=== PATIENT | female | born 1985 | race Caucasian/White ===

== ENCOUNTER 2025-07-30 21:58 | Emergency (ER) | payer MEDICAID, SELFPAY ==
--- OUTSIDE RECORDS SUMMARY | 2023-05-30 10:10 | XMS_ITS | Continuity of Care Document ---
Author Organization [facility] Address [address] [place] [address] Phone Care Team Providers Care Chain Saw Mechanic Name Role Phone Tenzin Shane MD Unavailable [...] Diagnoses Date Provider OFFICE/OUTPA TIENT VISIT, EST [facility], [address] [place], [address], [place] tel:[phone] Luis Lopez parasites in eyes (chief complaint) Systemic candidiasisOther halfway drug therapyDry eye syndrome of bilateral lacrimal glands 3 Acosta Dave. [facility], [address], [place], [place], [id number], [place]. tel:[phone] [facility], [address] [place], [address], [place] tel:[phone] Luis Lopez Growth on eyes (chief complaint) Systemic candidiasisAllergic conjunctivitis, chronicDry eye syndrome of bilateral lacrimal glandsOther subjective visual disturbancesOther halfway drug therapy 3 Acosta Dave. [facility], [address], [address], [place], [place], [id number], [place]. tel:[phone] [facility], [address] [place], [address], [place] tel:[phone] Luis Lopez swelling around eye (chief complaint) Other subjective visual disturbancesDry eye syndrome of bilateral lacrimal glandsConjunctival edema, right eye 3 Claus Murray. [facility], [address], [place], [address], [place]. tel:[phone] [facility], [address] [place], [address], [place] tel:[phone] Luis Lopez No Information 3 Amanda Scott. [facility], [address], [address], [place], [address], [place]. tel:[phone] [facility], [address] [place], [address], [place] tel:[phone] [place] floaters (chief complaint) Other subjective visual disturbances Dec- 3 Callum Solo. [facility], [address] [place], [address], [place]. tel:[phone] [facility], [address] [place], [address], [place] tel:[phone] Luis Carlos floaters and flashes (chief complaint) Other subjective visual disturbancesMyopia, bilateralDiplopiaOther halfway drug therapyLupusDermatomyositis 3 Glass Cathy. [facility], [address] [place], [address], [place]. tel:[phone] [facility], [address] [place], [address], [place] tel:[phone] Luis Lopez Medication monitoring (chief complaint) High Risk Medication ScreeningDry eye syndrome of bilateral lacrimal glands 3 Amanda Lorinna. [facility], [address], [address], [place], [address], [place]. tel:[phone] [facility], [address] [place] [address] [place], [address], [place] tel:[phone] Luis Lopez vision changes (chief complaint) Regular astigmatism, bilateral 2 [facility]. [facility], [address] [place] [address], [address], [place]. tel:[phone] [facility], [address] [place] [address], [address], [place] tel:[phone] Luis Lopez Swollen, dry eyes (chief complaint) Hypertensive retinopathy, bilateralDry eye syndrome of bilateral lacrimal glands 2 Amanda Lorinna. [facility], [address], [address], [place], [address], [place]. tel:[phone] [facility], [address] [place], [address], [place] tel:[phone] Luis Lopez swollen (chief complaint) PhotophobiaDry eye syndrome of bilateral lacrimal glands 2 Amanda Lorinna. [facility], [address], [address], [place], [address], [place]. tel:[phone] [facility], [address] [place], [address], [place] tel:[phone] [place] redness (chief complaint) Dry eye syndrome of bilateral lacrimal glandsCombined forms of age-related cataract, bilateralHypertensive retinopathy, bilateral [facility]. [facility], [address], [address], [place], [address], [place]. tel:[phone] Family History Family Member Type Diagnosis Age At Onset No Information Payers Payer name Insurance type C[facility] [id number] Social History Type Description Quantity Date Captured [...] takes Prednisone her symptoms improve. Showed to blender conveyor operator and oncologist, they said it looked normal. [...] castle kathy disease. Pt states her previous dusting and brushing machine operator did not really listen to her. Pt [...] Test with proparacaine: 4mm OD 3mm Volodymyr laminating machine tender + customer orders clerk + oncologistJust got a PCP. Recently had her blood drawn. swollen pt is showing me pictures of the inside of the catholic corner of the lids that she feels [...] she should see an eye doctor and laminating machine tender for eval. PCP is Dr. Guajardo. Was [...] dermatomyosistis, or Castleman disease. Related to Other halfway drug therapy Impression/Plan - # Dry Eye [...] [facility] Last was late March.She feels that her [...] but presumed candidiasis Hospitalisation X 2 at [facility]. Last was late March.She feels that her [...] dermatomyosistis, or Castleman disease. Related to Other halfway drug therapy Impression/Plan - # Dry Eye [...] of bilateral lacrimal glands Impression/Plan - # Dry Eye Syndrome - [...] syndrome of bilateral lacrimal glands Impression/Plan - Pa radhajose reports vision loss OD x 3 hours [...] to Other subjective visual disturbances Impression/Plan - Mi ld subconjunctival lymphatic edema OD. Likely related to her systemic conditions. She is pending consultation at [facility] for several conditions. Recommend beginning Loteprednol BID in the meantime for flare-ups - rx sent. Related to Conjunctival edema, right eye Impression/Plan - Pa telma reports vision loss OD x 3 [...] to Other subjective visual disturbances Impression/Plan - Di scussed eye findings. Patient reports decreased vision OD even with new MRx dispensed 09/23/22. No refraction done today as pt was already dilated at the time of my exam. Lensometry appears only slightly different from MRx. Recommend she return for a glasses check with Dr. Berman. Related to Myopia, bilateral Impression/Plan - Mo nocular diplopia OD. May [...] glasses prescription. Related to Diplopia Impression/Plan - On plaquenil for Lupus, dermatomyositis. Seeing Dr. Patel for plaquenil retinal screenings. No e/o toxicitiy on OCT today, though needs HVF 10-2 as scheduled. Additionally, no evidence of intraocular inflammation or other ocular complications associated with either lupus, dermatomyosistis, or Castleman disease. Related to Other long term care pharmacist drug therapy Impression/Plan - # Dry Eye [...] address inflammation and KCS. FU as scheduled. *Ava at next visit* Related to Photophobia Impression/Plan [...] candidiasis impression Systemic candidiasis: B37.7 assessment Other halfway drug therapy May impression Other long term care pharmacist drug therapy: Z79.899.Lupus: M32.9.Dermatomyositis: M33.13 assessment Dry eye syndrome of bilateral la crimal glands impression Dry eye syndrome of bilateral la crimal glands: H04.123
--- OUTSIDE RECORDS SUMMARY | 2024-11-24 05:00 | XMS_ITS ---
Author Organization [facility] Address [address] [facility] [address] [place] [address] Care Team Providers Care Batter Out Name Role Phone Lizette Guajardo Primary Care Provider Unavailab Tenzin Rodrigues Unavailable [phone] Rosie Faria Unavailable Unavailable Migration, Provider Unavailable Unavailable REASON FOR VISIT EMR-Jesse Encounters Encounter Location Date Provider Diagnosis [facility] [address] [place] [address] 11/24/2024 Provider Migration Plan Of Treatment Medication [...] on 10mg until you discuss with your home theater experience expert Oral 09/02/2022 09/17/2022 azaTHIOprine 50 MG Tablet [...] * Astrid COSBY LDOB:[birth year] (39 yo F)Acc No.[id number]:11/24/2024 Patient: Astrid CID :[id number] A ge:39 Y S ex:Female Address[address] [place], [address] * Refills Stop Amphetamine-Dextroamphetamine Tablet, 20 MG, [...] on 10mg until you discuss with your home theater experience expert Stop predniSONE Tablet, 10 MG, Oral, Take 30mg daily for 2 weeks then 20mg daily for 2 weeks then stay on 10mg until you discuss with your home theater experience expert Stop Sertraline HCl Tablet, 100 MG, Oral [...]
--- OUTSIDE RECORDS SUMMARY | 2024-11-25 05:00 | XMS_ITS ---
Author Organization [facility] Address [address] [facility] [address] [place] [address] Care Team Providers Care Cash Applications Manager Name Role Phone Lizette Guajardo Primary Care Provider Unavailab Tenzin Rodrigues Unavailable [phone] Rosie Faria Unavailable Unavailable Migration, Provider Unavailable [...] smoker Encounters Encounter Location Date Provider Diagnosis [facility] [address] [place] [id number] 11/25/2024 Provider Migration Plan Of Treatment No Information Progress Notes * Astrid COSBY LDOB:[birth year] (39 yo F)Acc No.[id number]:11/25/2024 Patient: Astrid CID :1985 A ge:39 Y S ex:Female Address:[address] [place] [id number] Subjective: * Chief Complaints: * E MR-Jesse [...]
[2025-07-30 22:08] VITALS: BP 149/81; PULSE 98; RESP 18; TEMP 36.6; O2SAT 97; BMI 33.3
--- NOTE | 2025-07-30 22:18 | ED_ITS ---
HPI - General Adult General Chief complaint: Skin/Abscess/Foreign Body Stated complaint: Index finger lac Time Seen by Provider: 07/30/25 22:18 History of Present Illness ED Provider: Tamar GUZMAN narrative: The patient is a 39-year-old female who says that she sustained injuries to her right hand when she was doing some work and her parents car. She was trying to install a backup camera in the car and was working on some wiring that would extend from the front of the car to the back of the car. She was in the backseat of the car when she dropped her Exacto knife. She tried to retrieve the Xacto knife and accidentally cut the tip of her right index finger on the blade of the finger. She also sustained a small injury to the dorsum of the right pinky finger and another small injury to the right thumb. There was bleeding of the wound from the index finger. She was encouraged by her mother to come to the hospital. She says that she is not up-to-date on her tetanus shot. Related Data Allergies Allergy/AdvReac Type Severity Reaction Status Date / Time adhesive tape (Adhesive Tape) Allergy Mild BLISTERS Verified 07/30/25 22:10 morphine (Morphine) Allergy Mild SEIZURES Verified 07/30/25 22:10 From VICODIN Allergy Unknown NAUSEA & Uncoded 07/30/25 22:10 VOMITING Review of Systems Review of Systems: Yes all other systems are reviewed and are negative Physical Exam ED Vital Signs: Vital Signs - 24 hr 07/30/25 22:08 Temperature 97.8 F Pulse Rate 98 Respiratory Rate 18 Blood Pressure 149/81 H Pulse Oximetry 97 Oxygen Delivery Method Room Air BMI result Body Mass Index 33.3 Const Other: The patient is awake and alert. She seemed to have an anxious demeanor. HENMT Other: The face is symmetrical. ?Mucous membranes moist. Eyes General: appearance normal, both eyes and all related structures Neck Neck: Yes normal visual inspection and Yes full ROM Skin Other: The patient has a 1 cm laceration to the pad of the right index finger. This is more in the ulnar side of the pad. It does not involve the fingernail. It is a full-thickness laceration but not significantly gaping. There is a small skin injury to the dorsum of the right pinky finger near the creases of the D IP joint. There is also a small abrasion to the skin of the thumb. Neuro Other: The patient is awake and alert. She seems to have an anxious demeanor. Cranial nerves are grossly intact. She seems to have normal function of the right arm although she says that she has a history of nerve damage to the tip of the right finger from a childhood injury. Extrem Other: The patient seems to have normal tendon function of all the fingers the right hand. She has a laceration at the pad of the right index finger. She has a small injury on the ulnar side of the dorsum of the right pinky finger which I suspect is an abrasion. She has a small abrasion on the ulnar side of the right thumb. Procedures Laceration Laceration 1: Site: hand (Right index finger) Side (If applicable): right Size (cm): 1.5 Description: linear Depth: simple, single layer Pre-repair: wound explored, irrigated extensively and deep structures intact Skin layer closed with: skin adhesive (A finger tourniquet was applied for hemostasis prior to application of Dermabond. Several layers of Dermabond were applied.) Medical Decision Making Medical Decision Making MDM Narrative: The patient is a 39-year-old woman who was visiting from [place], [place]. She was trying to help her parents by installing a backup camera to the car. She describes doing some work in the backseat of the car. She had an Exacto knife that she dropped. She says that when she reached into some location where the knife has been dropped she cut tip of her finger on the knife and she also seems to have sustained 2 additional small injuries to the hand, 1 on the pinky and 1 on the thumb. The patient seemed concerned that the smaller wounds might have foreign material in them but she could not really explain what kind of foreign material she thinks was likely based on the environment of where she sustained the injury. Overall I had trouble understanding the exact mechanism of the injuries. The patient's right index finger wound was cleaned and then closed with Dermabond. With regard to the 2 smaller injuries I explained that I thought it was very unlikely that there was any significant foreign body present. It is possible there could be a small splinter type wound in these injuries but I do not think these injuries appear significantly concerning that any x-rays or other investigations would be indicated. I suspect any very small body would work itself out. Therefore the patient has right index finger wound was closed with Dermabond after the wound was cleaned. This was done by 1st applying a finger tourniquet to the finger, and then cleaning the wound and then closing it with several layers of Dermabond. The patient says she is not up-to-date on tetanus. She will be given a tetanus shot. Discharge Plan Discharge Clinical Impression: Laceration of right index finger Patient Disposition: Home, Self-Care Instructions: Laceration (ED), Skin Adhesive Care (ED) Additional Instructions: The wound on your right index finger was closed with glue (Dermabond). The glue should stay on for several days. Eventually it will fall off. By the time it falls off the underlying injury should be sufficiently sealed and closed. As much as you can please avoid using the finger so that you do not accidentally peel off the glue or otherwise cause the glue to fall off prematurely. I do not have a high suspicion that you have any significant foreign bodies in the other skin injuries. If there is a very small foreign body it will usually work its way out. However if you feel you have ongoing problems, especially if you feel you develop any kind of infection, please return to the emergency room for additional evaluation. Otherwise follow up with your regular doctor when you get home to [place]. Referrals: [facility] Emergency Medicine [Provider Group] Print Language: Lao
--- OUTSIDE RECORDS SUMMARY | 2025-07-30 22:30 | XMS_ITS | Encounter Summary ---
Author Organization [facility] Address [address] [place] [address] Care Team Providers Care Family Engagement Specialist Name Role Phone None Per Patient, None Per Pt Primary Care Provi shanelle Unavailable Encounter Details Date Type Department Care Team (Late st Contact Info) Description 10/22/2019 Telephone [facility]- Surgical Oncology [address] [place] [phone] Jose Armando MD [address] [place] [phone] Social History Tobacco Use Types Packs/Day Years Used Date Smoking Tobacco: Never Alcohol Use Standard Drinks/Week Comments No 0 (1 standard drink = 0.6 oz pur e alcohol) Comments No Sex and Gender Information Value Date Recorded Sex Assigned at Not on file Legal Sex Female 7:34 PM PDT Gender Identity Not on file Sexual Orientation Not on file documented as of this encounter Miscellaneous Notes * Telephone Encounter - Yulissa Golden CrMA - 10/22/2019 11:11 AM PST Referral, mammaprint, pathology reports and chart notes faxed to Dr Torres office. documented in this encounter Plan of Treatment Not on file documented as of this encounter Visit Diagnoses Not on filedocumented in this encounter Care Teams Family Engagement Specialist Relationship Specialty Start Date End Date None Per Patient, None Per Pt PCP - General 02/27/23 documented as of this encounter
--- OUTSIDE RECORDS SUMMARY | 2025-07-30 22:30 | XMS_ITS | Encounter Summary ---
Author Organization [facility] Address [address] [place] [address] Phone Care Team Providers Care Retail Planner Name Role Phone RgDeborah garcia Gilma VALENTINE Primary Care Provider [phone] Mauricio Price DNP, RING CUTTER LATHE OPERATOR-C Unavailable Casandra Murphy MD, Sia Odilon Primary Care Provider [phone] Encounter Details Date Type Department Care Team (Late st Contact Info) Description 08/15/2023 Transcribe Orders [place] [facility] [address] [facility] [address] [address] Mauricio Price DNP, RING CUTTER LATHE OPERATOR-C [address] [place] [address] Social History Tobacco Use Types Packs/Day Years Used Date Smoking Tobacco: Former Cigarettes 0.5 4 0 10/03/2005 - 10/03/2009 Passive Smoke Exposure: Never Smokeless Tobacco: Never Alcohol Use Standard Drinks/Week Comments Never 0 (1 standard drink = 0.6 oz pur e alcohol) PHQ-2 Answer Date Recorded Total 6 12/15/2022 Comments Unknown Sex and Gender Information Value Date Recorded Sex Assigned at Not on file Legal Sex Female 11:45 AM PST Gender Identity Female 03/15/2023 8:00 AM PDT Sexual Orientation Not on file documented as of this encounter Plan of Treatment Not on file documented as of this encounter Results * COLONOSCOPY (09/01/2023 3:07 PM PST) Anatomical Region Laterality Modality Endocrine System Endoscopy 09/01/2023 3:07 PM PST Narrative 09/01/2023 3:07 PM PST Procedure Date: 09/01/2023 Patient Name: Astrid Magallanes Order #: [id number] Date of : 1985 CSN: [id number] Admit Type: Outpatient Room: Endo 2 Procedure: Colonoscopy Indications: Chronic diarrhea Providers: DORIS LANZA MD (Doctor), EDGARDO MICHAEL RN (Nurse), JULIANO ALBA Clinical Esthetician (Clinical Esthetician), Janak Nash MD Referring MD: MAURICIO TAN DNP,RING CUTTER LATHE OPERATOR-C Requesting Provider: Medicines: Midazolam 6 mg IV, Fentanyl 175 micrograms IV Complications: No immediate complications. Procedure: Pre-Anesthesia Assessment: - ASA Grade Assessment: III - A patient with severe systemic disease. - After reviewing the risks and benefits, the patient was deemed in satisfactory condition to undergo the procedure. - The anesthesia plan was to use moderate sedation/analgesia (conscious sedation). Prior to the procedure, a History and Physical with airway assessment was performed (see patient record), and patient medications and allergies were reviewed. The risks and benefits of the procedure and the sedation options and risks were discussed. All questions were answered and informed consent was obtained. After reviewing the risks and benefits, the patient was deemed in satisfactory condition to undergo the procedure. Immediately prior to administration of medications, the patient was re-assessed for adequacy to receive sedatives. The heart rate, respiratory rate, oxygen saturations, blood pressure, adequacy of pulmonary ventilation, and response to care were monitored throughout the procedure. The physical status of the patient was re-assessed after the procedure. The Olympus [id number] Colonoscope #[id number] was introduced through the anus and advanced to the terminal ileum. The colonoscopy was performed without difficulty. The patient tolerated the procedure well. The quality of the bowel preparation was good. The bowel preparation used was MoviPrep via split dose instruction. The terminal ileum, ileocecal valve, appendiceal orifice, and rectum were photographed. Scope withdrawal time was 12 minutes. Estimated Blood Loss: Estimated blood loss was minimal. Findings: The terminal ileum appeared normal. Biopsies were taken with a cold forceps for histology. Verification of patient identification for the specimen was done by the physician, nurse and it desktop support technician using the patient's name and date. The appendiceal orifice and ileocecal valve appeared normal. The colon (entire examined portion) appeared normal. Biopsies for histology were taken with a cold forceps from the right colon and left colon for evaluation of microscopic colitis. Verification of patient identification for the specimen was done by the physician, nurse and it desktop support technician using the patient's name and date. The exam was otherwise without abnormality on direct and retroflexion views. No fissure seen on limited anal canal exam. A few 1 to 2 mm polyp was found in the recto-sigmoid colon. The polyps were hyperplastic and found to be Kudo Pit Pattern Type II (as viewed with Narrow Band Imaging) so not removed. Moderate Sedation: Moderate (conscious) sedation was administered by the nurse and supervised by the endoscopist. The patient's oxygen saturation, heart rate, blood pressure and response to care were monitored. Total physician intraservice time was 24 minutes. Impression: - The examined portion of the ileum was normal. Biopsied. - The ileocecal valve and appendiceal orifice are normal. - The entire examined colon is normal. Biopsied. - Few 1 to 2 mm hyperplastic polyps at the recto-sigmoid colon left in place. - The examination was otherwise normal on direct and retroflexion views. Recommendation: - Patient has a contact number available for emergencies. The signs and symptoms of potential delayed complications were discussed with the patient. Return to normal activities tomorrow. Written discharge instructions were provided to the patient. - Resume previous diet. - Continue present medications. - Repeat colonoscopy for surveillance based on pathology results. Attending Participation: I was present and participated during the entire procedure, including non-gamez portions. DORIS LANZA MD 09/01/2023 3:56:34 PM This report has been signed electronically. Janak Nash MD Number of Addenda: 0 Note Initiated On: 09/01/2023 3:07 PM Mauricio Tan DNP, [facility] Final Result documented in this encounter Visit Diagnoses Diagnosis Bowel habit changes- Primary Other symptoms involving digestive system documented in this encounter Additional Health Concerns Assessment Noted Time PHQ-2 Depression Total Score: 6 12/16/19 23 8:00 AM PDT documented as of this encounter Care Teams Retail Planner Relationship Specialty Start Date End Date Deborah Rg DO [address] [facility] [address] [facility] [address] [place], [place] [id number] PCP - General Family Medicine 12/15/22 12/19/23 Sia Guajardo MD [address] [facility] [address] [place], [place] [id number] PCP - General Internal Medicine 12/20/23 Mauricio Price DNP, [facility] [address] [place] [address] Nurse Practitioner Family 03/29/23 documented as of this encounter
--- OUTSIDE RECORDS SUMMARY | 2025-07-30 22:30 | XMS_ITS | Encounter Summary ---
Author Organization [facility] Address [address] [place] [address] Care Team Providers Care Napping Machine Operator Name Role Phone None Per Patient, None Per Pt Primary Care Provi shanelle Unavailable Reason for Visit * Reason Onset Date Comments Other (see comments) 08/04/2023 pathology Encounter Details Date Type Department Care Team (Late st Contact Info) Description 08/04/2023 Telephone [facility] Surgical Oncology [facility] [address] [place] [address] Jose Armando MD [address] [place] [address] Other (see comments) (pathology) Social History Tobacco Use Types Packs/Day Years Used Date Smoking Tobacco: Never Smokeless Tobacco: Never Alcohol Use Standard Drinks/Week Comments No 0 (1 standard drink = 0.6 oz pur e alcohol) Alcohol Use Answer Date Recorded Alcohol Audit Score Not on file 06/21/2021 Comments No Sex and Gender Information Value Date Recorded Sex Assigned at Not on file Legal Sex Female 7:34 PM PDT Gender Identity Not on file Sexual Orientation Not on file documented as of this encounter Miscellaneous Notes * Telephone Encounter - Niko Greenberg - 08/04/2023 8:34 AM PDT Primary concern: patient called to reschedule appt and advised she was told by a provider in [place] one of her samples came back cancerous. Appointment offered? YES Rescheduled 09/08[facility] [facility] best method of contact: YES. patient stated she would message Dr. Armando documented in this encounter Plan of Treatment Not on file documented as of this encounter Visit Diagnoses Not on filedocumented in this encounter Care Teams Napping Machine Operator Relationship Specialty Start Date End Date None Per Patient, None Per Pt PCP - General 02/27/23 documented as of this encounter
--- OUTSIDE RECORDS SUMMARY | 2025-07-30 22:30 | XMS_ITS | Clinical Summary ---
Author Organization [employer] Address [address] [place] [address] Care Team Providers Care Care Aid Name Role Phone None Per Patient, None Per Pt Primary Care Provi shanelle Unavailable Allergies Active Allergy Reactions Criticality Noted Date Comments Adhesive Rash Medium 10/15/2019 Very bad rash Immune Globulin (Human) (Igg) Anaphylaxis High 03/31/2023 IVIG activates my lymphatic system makes me go into multiple organ dysfunction Levothyroxine Cough,Nausea And Vomiting,Pruritis (Itching),Rash,Hives Medium 02/19/2022 No reaction to brand name Synthroid. No reaction to brand name Synthroid. No reaction to brand name Synthroid. No reaction to brand name Synthroid. Morpholine Analogues Other (See Comments) Low 02/13 seizures Medications diazePAM (VALIUM) 5 mg tablet Take 1 tablet (5 mg total) by mouth every 6 hours as needed for Anxiety (Take one tab 30 minutes prior to MRI. May repeatx1 if needed) 2 tablet 07/22/20 22 Active hydrOXYchloroQUINE 400 mg Tab Take 400 mg by mouth daily 08/10/20 22 Active predniSONE (DELTASONE) 10 mg tablet 09/02/20 22 Active albuterol (PROVENTIL HFA) 90 mcg/actuation inhaler Inhale 2 puffs into the lung every 6 hours as needed 03/27/20 23 Active OneTouch Verio test strips strip 09/04/20 23 Active BORIC ACID, BULK, MISC Place 1 Dose vaginally 06/07/20 23 Active clobetasoL (TEMOVATE) 0.05 % ointment Apply topically Acti ve dextroamphetamine- amphetamine (ADDERALL) 20 mg tablet Take 1 tablet (20 mg total) by mouth 3 times daily as needed 06/15/20 23 Active DULoxetine (CYMBALTA) [address] Take 2 capsules (120 mg total) by mouth 02/04/20 23 Active furosemide (LASIX) 40 mg tablet Take 1 tablet (40 mg total) by mouth daily 07/25/20 23 Active guanFACINE (TENEX) 2 mg tablet Take 1 tablet (2 mg total) by mouth 02/04/20 23 Active ketoconazole (NIZORAL) 2 % cream KETOCONAZOLE 2 % CREA 02/18/20 23 Active Tirosint 200 mcg Cap Take 1 capsule by mouth daily 08/22/20 23 Active lisdexamfetamine (VYVANSE) 40 mg capsule Take 1 capsule (40 mg total) by mouth 09/04/20 23 Active lisinopriL (ZESTRIL) 10 mg tablet Take 1 tablet (10 mg total) by mouth 07/15/20 23 Active LORazepam (ATIVAN) 0.5 mg tablet Take 1 tablet (0.5 mg total) by mouth 2 times daily as needed 09/02/20 22 Active ondansetron (ZOFRAN ODT) 4 mg disintegrating tablet Take 1 tablet (4 mg total) by mouth every 8 hours as needed 03/09/20 23 Active pantoprazole (PROTONIX) 40 mg EC tablet Take 1 tablet (40 mg total) by mouth 04/08/20 23 Active propranoloL (INDERAL) 10 mg tablet Take 1 tablet (10 mg total) by mouth 05/19/20 23 Active tamoxifen (NOLVADEX) 20 mg tablet Take 1 tablet (20 mg total) by mouth daily 04/19/20 23 Active Active Problems Problem Noted Date Diagnosed Date History of medullary carcinoma of thyroid 2019 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 10/16/2019 Malignant neoplasm of centra l portion of right breast in female, estrogen receptor positive 10/16/2019 Social History Tobacco Use Types Packs/Day Years Used Date Smoking Tobacco: Never Smokeless Tobacco: Never Tobacco Cessation:Counseling Given: Not Answered Alcohol Use Standard Drinks/Week Comments No 0 (1 standard drink = 0.6 oz pur e alcohol) Alcohol Use Answer Date Recorded Alcohol Audit Score Not on file 06/21/2021 Comments No Sex and Gender Information Value Date Recorded Sex Assigned at Not on file Legal Sex Female 7:34 PM PDT Gender Identity Not on file Sexual Orientation Not on file Last Filed Vital Signs Vital Sign Reading Time Taken Comments Blood Pressure 140/110 02/27/2023 8:28 PM PDT Pulse 86 10/05/2023 1:19 PM PST Temperature 36.3 C (97.3 F) 02/27/2023 4:47 PM PDT Respiratory Rate 22 10/05/2023 1:19 PM PST Oxygen Saturation 100% 02/27/2023 8:29 PM PDT Inhaled Oxygen Concentration - - Weight 106.1 kg (234 lb) 10/05/2023 1:19 PM PST Height 162.6 cm (5' 4 ) 10/05/2023 1:19 PM PST Body Mass Index 40.17 10/05/2023 1:19 PM PST Plan of Treatment Health Maintenance Due Date Last Done Comments Hepatitis C Ab Screening 1987 Depression Screening (PHQ/EPDS) 1999 Hepatitis B Vaccine (1 of 3 - 19+ 3-dose series) 2006 Pneumo Vaccine 0-49 yrs (1 o f 2 - PCV) 2006 Tetanus Vaccine 2006 Zoster Vaccine (1 of 2) 2006 10/03/1989 HPV Vaccine (1 - 3-dose SCDM series) 2014 HPV/Cotest 2017 Cervical Cancer Screening 02/06/2018 Pap Smear 02/06/2018 02/06/2015 COVID-19 Vaccine (3 - Pfizer risk series) 03/17/2021 02/17/2021, 01/27/2021 Influenza Vaccine (#1) 2025 09/11/2015 HIV Screening Completed 02/06/2015 Syphilis (RPR) Screening Completed 02/06/2015 Hepatitis A Vaccine Aged Out No longe r eligible based on patient's age to complete this topic Hib Vaccine Aged Out No longer eligi ble based on patient's age to complete this topic Meningococcal ACWY Vaccine Aged Out N o longer eligible based on patient's age to complete this topic Meningococcal B Vaccine Aged Out No l onger eligible based on patient's age to complete this topic Procedures Procedure Name Priority Date/Time Associated Diagnosis Comments HIV 1,2,O COMBINED ANTIBODIES(I) Routine 02/06/2015 10:34 AM PDT RAPID PLASMA REAGIN Routine 02/06/2015 1 0:34 AM PDT PAP SMEAR REPORT Routine 02/06/2015 12:0 1 AM PDT from Last 3 Months or Most Recently Relevant to Health Maintenance Results * HIV 1,2,O Combined Antibodies (02/06/2015 10:34 AM PDT) HIV 1,2,O Abs Non React Non React [facility] Comment: METHOD: Siemens ADVIA Centaur XP HIV 1,2,0 3rd Generation Immunoassay. NOTE: HIV antibodies may be undetectable in very early/acute HIV infection. If early/acute HIV infection is suspected, testing by SARINA (HIV-1 RNA Qualitative TMA) and/or p24 antigen should be considered. Disclosure of confidential HIV test information may require specific Written authorization of the individual. OAR [phone] (9) (a) (b) Blood specimen (specimen) 02/06/2015 10:34 AM PDT 02/06/2015 1:10 PM PDT Anya Clark MD CHEMISTRY ORDERABLES Final Resul t Performing Organization Address [facility] de Phone Number [facility] [address] [place] [address] * RPR - Rapid Plasma Reagin (02/06/2015 10:34 AM PDT) Rapid Plasma Reagin Non-Reacti ve Non-Reacti [facility] Blood specimen (specimen) 02/06/2015 10:34 AM PDT 02/06/2015 1:10 PM PDT Anya Clark MD CHEMISTRY ORDERABLES Final Resul t Performing Organization Address [facility] de Phone Number [facility] [address] [address] * Pap Smear Report (02/06/2015 12:01 AM PDT) 02/06/2015 12:0 1 AM PDT Narrative [facility] - 02/11/2015 2:35 PM PDT SUSY COSBY Age: 29 years Med Nbr: [id number] [employer]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 No endocervical/transformation zone components present. 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 Pathology processing performed at [facility], [address] [place] [address], [place] unless otherwise stated Cytology and HPV technical and professional services performed at [facility], [address] [place] [address], [place] unless otherwise stated. Professional Services Provided by [facility], [address] [place] [address], [place] unless otherwise stated Anya Clark MD PATHOLOGY [place] [address] from Last 3 Months or Most Recently Relevant to Health Maintenance Insurance Advance Directives Documents on File Type Date Recorded Patient Inclusion Manager Expl anation Advance/Healthcare Directive 02/27/2023 4:44 PM Advance/Healthcare Directive 11/09/2019 GIVE AD Advance/Healthcare Directive (Vynca) 12/01/2016 Care Teams Care Aid Relationship Specialty Start Date End Date None Per Patient, None Per Pt PCP - General 02/27/23
--- OUTSIDE RECORDS SUMMARY | 2025-07-30 22:30 | XMS_ITS | Encounter Summary ---
Author Organization [facility] Address [address] [address] Care Team Providers Care Sporting Goods Sales Manager Name Role Phone Unavailable Primary Care Provider Unavailabl e Encounter Details Date Type Department Care Team (Late st Contact Info) Description 02/25/2023 Lab Requisition [place], [place] [address] [place] [place] [address] [place] [address] [place] [address] Castleman disease (CMS/HCC); Malignant neoplasm of thyroid gland (CMS/HCC); Malignant neoplasm of unspecified site of unspecified female breast (CMS/HCC) Social History Tobacco Use Types Packs/Day Years Used Date Smoking Tobacco: Never Assessed Comments Unknown Sex and Gender Information Value Date Recorded Sex Assigned at Not on file Legal Sex Female 2:58 PM PDT Gender Identity Not on file Sexual Orientation Not on file documented as of this encounter Plan of Treatment Not on file documented as of this encounter Procedures Procedure Name Priority Date/Time Associated Diagnosis Comments AP PROFESSIONAL ONLY 02/24/2023 8:52 AM PDT Castleman disease (HCC) Malignant neoplasm of thyroid gland (HCC) Malignant neoplasm of unspecified site of unspecified female breast (HCC) documented in this encounter Results * AP Professional Only (02/24/2023 8:52 AM PDT) Case Report Surgical Pathology Report Case: [id number] Authorizing Provider: Anny Kamara MD Collected: 02/24/2023 08:52 AM Ordering Location: [facility] - Received: 02/25/2023 03:06 PM [place], [place] Pathologist: Gayathri Anand MD Specimen: Blood, For Flow Cytometry 3 12:38 PM [facility] Final Diagnosis Peripheral blood flow cytometry: Relatively increased granulocytes. Flow cytometry comment: No immunophenotypic evidence of a lymphoproliferative disorder, acute leukemia or circulating blasts is identified. Myeloproliferative neoplasms and myelodysplastic syndromes may not show antigenic abnormalities on myeloid cells and cannot be ruled out by flow cytometry. Please correlate the result with other pertinent laboratory data and clinical information. 3 12:38 PM [facility] at 1238 PDT Clinical Information Castleman disease (HCC) Malignant neoplasm of thyroid gland (HCC) Malignant neoplasm of unspecified site of unspecified female breast (HCC) 3 12:38 PM [facility] Gross Description A. Blood 2 smears are received. Submitted peripheral blood to [facility] for flow cytometry. 3 12:38 PM [facility] Microscopic Description CBC performed on 02/24/2023 . WBC 24.76 K/uL RBC 4.95 M/uL Hgb 15.2 g/dL Hct 46.2 % MCV 93.3 fL RDW 13.2 % Platelets 30.7 K/uL Neutrophils 22.06 K/uL Lymphocytes 1.31 K/uL Monocytes 0.73 K/uL Eosinophils 0.0 K/uL Basophils 0.09 K/uL NRBC 0.0 % RET ND % 3 12:38 PM [facility] Flow Cytometry Summary Flow cytometric analysis was performed at [facility] in [place], [place]. The report states below. Flow Diagnosis: Relatively increased granulocytes. Comments: Granulocytes are relatively increased. No immunophenotypic evidence of a lymphoproliferative disorder, acute leukemia or circulating blasts is identified. Myeloproliferative neoplasms and myelodysplastic syndromes may not show antigenic abnormalities on myeloid cells and cannot be ruled out by flow cytometry. Please correlate the result with morphological findings, other pertinent laboratory data and clinical information. Flow Differential (%) and Population Analysis: Lymphocytes: 6.0% T-cells (72% of lymphoid cells) show a CD4:CD8 ratio of 1.8 without overt phenotypic abnormality. NK-cells (10% of lymphoid cells) are unremarkable. Mature B-cells (12% of lymphoid cells) are polyclonal (kappa:lambda ratio of 1.4). Monocytes: 2.1% Monocytes co-express CD14 and CD64. Granulocytes: 91.1% Granulocytes show phenotypic evidence of maturation. Slight left shift cannot be excluded. Eosinophils are 0.2% of total cells and basophils are 0.0% of total cells. CD45 Dim: 0.8% CD34+ cells are not detected. CD45 Ne.1% Erythroids and cell debris, unremarkable. Plasma Cells: 0.0% CD34+: 0.0% Specimen Viability: 92.9 %. Cell Yield: 12.3 Million Markers Performed: CD2, CD3, CD4, CD5, CD7, CD8, CD10, CD11c, CD13, CD14, CD16, CD19, CD20, CD23, CD33, CD34, CD38, CD45, CD56, CD64, CD117, HLA-DR, [place], Lambda (24 Markers ) 12:38 PM PDT [facility] BLOOD SPECIMEN / Unknown 02/24/2023 8:52 AM PDT 02/25/2023 3:06 PM PDT us Anny Kamara MD PATHOLOGY ORDERABLES Final Result [facility] [address] [place] [address] documented in this encounter Visit Diagnoses Diagnosis Castleman disease (CMS/HCC) Enlargement of lymph nodes Malignant neoplasm of thyroid gland (CMS/HCC) Malignant neoplasm of thyroid gland Malignant neoplasm of unspecified site of unspecified female breast (CMS/HCC) documented in this encounter
--- OUTSIDE RECORDS SUMMARY | 2025-07-30 22:30 | XMS_ITS ---
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 Past Treatment and Therapy Plans No past plan information found. Lifetime Dose Tracking * Chemical Lifetime Dose Automatic Entry Manual Entr y [id number] 30.7 mSv 30.7 mSv 0 mSv Total DLP 1,875 mGy-cm 1,875 mGy-cm 0 mGy-cm CTDIvol Max 53.5 mGy 53.5 mGy 0 mGy CTDIvol Min 53.5 mGy 53.5 mGy 0 mGy
--- OUTSIDE RECORDS SUMMARY | 2025-07-30 22:30 | XMS_ITS | Patient Health Record ---
Author Organization [facility] Address [address] [facility] [address] [place] [address] Care Team Providers Care Clinical Support Nurse Name Role Phone Lizette Guajardo Primary Care Provider Unavailab Tenzin Rodrigues Unavailable [phone] Rosie Faria Unavailable Unavailable Migration, Provider Unavailable Unavailable Reason For Referral No Information Medications Medication SIG (Take, Route, Frequency, Duration) Notes Start Date End Date Status azaTHIOprine 50 MG Tablet Take 3 tablets (150mg) daily and after 2 weeks, if still tolerating, increase to your goal dose of 4 tablets (200mg) daily if you are not already add this dose. Oral 11/12/2022 Active NIFEdipine ER 30 MG Tablet Extended Release 24 Hour Take 1 tablet daily. Oral 11/12/2022 Active guanFACINE HCl 2 MG [...] daily for a month Oral 03/10/2023 Active NuvaRing 0.12-0.015 MG/24HR Ring use as [...] Tablet 1 tab po qd Oral Active Synthroid 125 MCG Tablet 1 tab po qd Oral Active traMADol HCl 50 MG Tablet TAKE ONE TABLE T BY MOUTH TWICE A DAY NEEDED FOR PAIN Oral 09/30/2022 Active Amphetamine-Dextroamphetamin e 20 MG Tablet 1 tab po qd Oral Active Vyvanse 70 MG Capsule 1 tab po qd Oral Active Tamoxifen Citrate 20 MG Tablet 1 tab po qd Oral Active Immunizations Vaccine Route Administration Date Status Comme nts Moderna Covid-19 Vaccine 1st dose Unknown 01/27/2021 Ot hers undefined; Moderna Covid-19 Vaccine 1st dose Unknown 02/17/2021 Ot hers undefined; Pneumococcal conjugate PCV 13 Unknown 11/19/2019 Others undefined; Social History Social History Additional Details Category Social Info Options Details Migrated Social History Migrated Social History smoking status : Former smoker Problems Problem Type SNOMED Code ICD Code Onset Dates Problem Status W/U Status Risk Notes Problem Malignant neoplasm of female breast (353138535) Malignant neoplasm of unspecified site of unspecified female breast (C50.919) Active confirmed Problem Malignant neoplasm of thyroid gland (428961882) Malignant neoplasm of thyroid gland (C73) Active confirmed Problem Multiple endocrine neoplasia, 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) Multiple endocrine neoplasia [MEN] type IIA (E31.22) Active confirmed Problem Overweight (867642883) Overweight (E66.3) Active confirmed Notes::Ad ult patient under 65 with BMI over 25.; Problem Anxiety disorder (821441993) Other specified anxiety disorders (F41.8) Active confirmed Problem Essential hypertension (02375618) Essential (primary) hypertension (I10) Active confirmed Problem Raynaud's disease (930600842) Raynaud's syndrome without gangrene (I73.00) Active confirmed Problem Allergic arthritis (58554619) Other specified arthritis, unspecified site (M13.80) Active confirmed Problem Pain of knee region (finding) (0574510083) Pain in unspecified knee (M25.569) Active confirmed Problem Arthralgia of the ankle and/or foot (387556357) Pain in unspecified ankle and joints of unspecified foot (M25.579) Active confirmed Problem Systemic lupus erythematosus (92060300) Other forms of systemic lupus erythematosus (M32.8) Active confirmed Problem Dermatomyositis (735087628) Dermatopolymyosi tis, unspecified, organ involvement unspecified (M33.90) Active confirmed Problem Epistaxis (997665167) Epistaxis (R04.0) Active confirmed Problem Eruption of skin (727530507) Rash and other nonspecific skin eruption (R21) Active confirmed Problem Generalized enlarged lymph nodes (449020852) Generalized enlarged lymph nodes (R59.1) Active confirmed Problem Lymphadenopathy (95743587) Enlarged lymph nodes, unspecified (R59.9) Active confirmed Problem High antibody titer (701909754) Raised antibody titer (R76.0) Active confirmed Problem Tuberculosis screening (507341853) Encounter for screening for respiratory tuberculosis (Z11.1) Active confirmed Problem Viral screening (888455691) Encounter for screening for other viral diseases (Z11.59) Active confirmed Problem Long-term current use of drug therapy (853390479) Other intermediate frame tender (current) drug therapy (Z79.899) Active confirmed Encounters Encounter Location Date Provider Diagnosis [facility] [address] [facility] [address] [place] [address] 11/24/2024 Provider Migration [facility] [address] [facility] [address] [place] [address] 11/25/2024 Provider Migration Plan Of Treatment No Information Insurance Providers Payer Name Payer Address Payer Phone Subscriber Number Group Number Insured Name Patient Relationship to Insured Coverage Start Date Coverage End Date [facility] [address] [address] [place] [address] [id number] Astrid Lobo Self - patient is the insured
--- OUTSIDE RECORDS SUMMARY | 2025-07-30 22:30 | XMS_ITS | Clinical Summary ---
Author Organization [facility] Address [address] [address] Care Team Providers Care Banking Center Manager Name Role Phone Unavailable Primary Care Provider Unavailabl e Social History Tobacco Use Types Packs/Day Years Used Date Smoking Tobacco: Never Assessed Comments Unknown Sex and Gender Information Value Date Recorded Sex Assigned at Not on file Legal Sex Female 2:58 PM PDT Gender Identity Not on file Sexual Orientation Not on file Plan of Treatment Not on file Insurance [place] [id number]
--- OUTSIDE RECORDS SUMMARY | 2025-07-30 22:30 | XMS_ITS | Encounter Summary ---
Author Organization [facility] Address [address] [place] [address] Phone Care Team Providers Care Wireless Internet Installer Name Role Phone Ifrah Deborah Gilma VALENTINE Primary Care Provider [phone] Aleja Price DNP, FIELD AUDITOR-C Unavailable Casandra Murphy MD, Sia Donald Primary Care Provider [phone] Encounter Details Date Type Department Care Team (Late st Contact Info) Description 08/21/2023 Pharmacy Visit [facility] [address] [address] Social History Tobacco Use Types Packs/Day Years [...] Diagnoses Not on filedocumented in this encounter Additional Health Concerns Assessment Noted Time PHQ-2 Depression Total Score: 6 03/15/20 23 8:00 AM PDT documented as of this encounter Care Teams Wireless Internet Installer Relationship Specialty Start Date End Date Deborah Rg DO [address] [facility] [address] [place], [place] [id number] PCP - General Family Medicine 12/15/22 12/19/23 Sia Guajardo MD [address] [facility] [address] [place], [place] [address] PCP - General Internal Medicine 12/20/23 Aleja Price DNP, FIELD AUDITOR-C [address] [place] [phone] Nurse Practitioner Family 03/29/23 documented as of this encounter
--- OUTSIDE RECORDS SUMMARY | 2025-07-30 22:30 | XMS_ITS | Encounter Summary ---
Author Organization [facility] Address [address] [place] [address] Phone Care Team Providers Care Powdered Metal Supervisor Name Role Phone No Pcp Per Patient Primary Care Provider Unavail able Deborah Rg DO Primary Care Provider [phone] Aleja Price DNP, SPINNING FRAME CHANGER-C Unavailable Casandra Murphy MD, Sia Donald Primary Care Provider [phone] Encounter Details Date Type Department Care Team (Late st Contact Info) Description 09/22/2022 Document-Scanned [facility] Department [place] [facility] Unknown . Social History Tobacco Use Types Packs/Day Years [...] on filedocumented in this encounter Care Teams Powdered Metal Supervisor Relationship Specialty Start Date End Date No Pcp Per Patient NO PCP PER PATIENT PCP - General 10/01/19 12/14/22 Deborah Rg DO [address] [facility] [address] [place] [address] PCP - General Family Medicine 12/15/22 12/19/23 Sia Guajardo MD [address] [facility] [address] [place], [place] [address] PCP - General Internal Medicine 12/20/23 Aleja Price DNP, SPINNING FRAME CHANGER-C [address] [place] [phone] Nurse Practitioner Family 03/29/23 documented as of this encounter
--- OUTSIDE RECORDS SUMMARY | 2025-07-30 22:30 | XMS_ITS | Encounter Summary ---
Author Organization [facility] Address [address] [place] [address] Phone Care Team Providers Care Car Restorer Name Role Phone Ifrah Deborah Gilma VALENTINE Primary Care Provider [phone] Aleja Price DNP, SOLUTION DESIGNER-C Unavailable Casandra Murphy MD, Sia Odilon Primary Care Provider [phone] Encounter Details Date Type Department Care Team (Late st Contact Info) Description 08/15/2023 Procedure Pass [facility] [address] [address] Social History Tobacco Use Types Packs/Day Years Used Date Smoking Tobacco: Former Cigarettes 0.5 4 0 10/03/2005 - 10/03/2009 Passive Smoke Exposure: Never Smokeless Tobacco: Never Alcohol Use Standard Drinks/Week Comments Never 0 (1 standard drink = 0.6 oz pur e alcohol) PHQ-2 Answer Date Recorded Total 6 12/15/2022 Comments No Sex and Gender Information Value [...] documented as of this encounter Care Teams Car Restorer Relationship Specialty Start Date End Date Deborah Rg DO [address] [facility] [address] [place] [address] PCP - General Family Medicine 12/15/22 12/19/23 Sia Guajardo MD [address] [facility] [address] [place], [place] [address] PCP - General Internal Medicine 12/20/23 Aleja Price DNP, SOLUTION DESIGNER-C [address] [place] [phone] Nurse Practitioner Family 03/29/23 documented as of this encounter
--- OUTSIDE RECORDS SUMMARY | 2025-07-30 22:30 | XMS_ITS | Encounter Summary ---
Author Organization [facility] Address [address] [place] [address] Phone Care Team Providers Care Manager Entry Name Role Phone Deborah Rg DO Primary Care Provider [phone] [facility] Aleja Tan DNP, CYTOGENETIC TECHNICIAN-C Unavailable Casandra Murphy MD, Sia Odilon Primary Care Provider [phone] Encounter Details Date Type Department Care Team (Late st Contact Info) Description 07/20/2023 Procedure Pass [facility] Diagnostic Imaging Services at [address] [address] Social History Tobacco Use Types Packs/Day Years [...] documented as of this encounter Care Teams Manager Entry Relationship Specialty Start Date End Date Deborah Rg DO [address] [facility] [address] [place] [address] PCP - General Family Medicine 12/15/22 12/19/23 Sia Guajardo MD [address] [facility] [address] [place], [place] [address] PCP - General Internal Medicine 12/20/23 Aleja Price DNP, CYTOGENETIC TECHNICIAN-C [address] [place] [phone] Nurse Practitioner Family 03/29/23 documented as of this encounter
--- OUTSIDE RECORDS SUMMARY | 2025-07-30 22:31 | XMS_ITS | Encounter Summary ---
Author Organization [facility] Address [address] [place] [address] Phone Care Team Providers Care Command Post Craftsman Name Role Phone Deborah Rg DO Primary Care Provider [phone] [facility] Aleja Tan DNP, CUSTOMER RELATIONS ASSISTANT-C Unavailable Casandra Murphy MD, Sia Odilon Primary Care Provider [phone] Encounter Details Date Type Department Care Team (Late st Contact Info) Description 03/09/2023 Procedure Pass Endoscopic Procedural Unit at [facility] [address] [facility] [facility], [address]th [place] [address] Social History Tobacco Use Types Packs/Day [...] documented as of this encounter Care Teams Command Post Craftsman Relationship Specialty Start Date End Date Deborah Rg DO [address] [facility] [address] [place] [address] PCP - General Family Medicine 12/15/22 12/19/23 Sia Guajardo MD [address] [facility] [address] [place] [address] PCP - General Internal Medicine 12/20/23 Aleja Price DNP, CUSTOMER RELATIONS ASSISTANT-C [address] [place] [phone] Nurse Practitioner Family 03/29/23 documented as of this encounter
--- OUTSIDE RECORDS SUMMARY | 2025-07-30 22:31 | XMS_ITS | Encounter Summary ---
Author Organization [facility] Address [address] [place] [address] Phone Care Team Providers Care Hand Picker Name Role Phone Aleja Price DNP, PARKER Unavailable Casandra Murphy MD, [facility] Primary Care Provider [phone] Reason for Visit * Reason Onset Date Comments Other 02/01/2024 Care Coordinatio n Encounter Details Date Type Department Care Team (Late st Contact Info) Description 02/01/2024 Telephone [facility], [address] [address] Aleja Price DNP, TRIGONOMETRY TUTOR-C [address] [place] [address] Other (Care Coordination) Social History Tobacco Use Types Packs/Day Years [...] encounter Miscellaneous Notes * Telephone Encounter - Jasmin Martinez RN - 02/02/2024 4:20 PM PDT recommendations sent to pt. Upcoming appt with [facility] JACKIE CHANDLER on 02/17/24. ----- Message ----- From: Aleja Tan DNP, FNP-C Sent: 02/02/2024 3:05 PM PDT To: Jasmin Martinez RN Hi called Dr. Guajardo. Chromogranin A was done with her on a PPI. I recommended repeating the test offPPI. If still positive then can do dotatate scan. We reviewed work up. Suggested encouraging her tovisit with Dr. Escalante as previously planned. She has a visit scheduled with me as well. Discussed focus on treatment. Thank you, Alessandra * Telephone Encounter - Yamile Dumont - 02/01/2024 2:06 PM PDT Person calling? (Patient, spouse, caregiver, medical office, etc): Dr Guajardo - PCP Reason for call: asking for call back from [facility] for Care Coordination, requesting call back today ortomorrow because Dr Guajardo will be out of the office for an extended period of time after tomorrow. Provider / Specialty: [facility]/GI Call back number confirmed?: yes Best call back number / ext: [phone] / noted under contact or phone tab. Caller would like a call back to discuss. documented in this encounter Plan of Treatment Not on file documented as of this encounter Visit Diagnoses Not on filedocumented in this encounter Additional Health Concerns Assessment Noted Time PHQ-2 Depression Total Score: 6 12/16/19 23 8:00 AM PDT documented as of this encounter Care Teams Hand Picker Relationship Specialty Start Date End Date Sia Guajardo MD [address] [address] PCP - General Internal Medicine 12/20/23 Aleja Price DNP, TRIGONOMETRY TUTOR-C [address] [place] [phone] Nurse Practitioner Family 03/29/23 documented as of this encounter
--- OUTSIDE RECORDS SUMMARY | 2025-07-30 22:31 | XMS_ITS | Encounter Summary ---
Author Organization [facility] Address [address] [place] [address] Phone Care Team Providers Care Fire Management Technician Name Role Phone Ifrah Deborah Gilma VALENTINE Primary Care Provider [phone] Aleja Price DNP, BEHAVIORAL TECHNICIAN-C Unavailable Casandra Murphy MD, Sia Donald Primary Care Provider [phone] Encounter Details Date Type Department Care Team (Late st Contact Info) Description 08/28/2023 Pharmacy Visit [facility] [address] [address] Social History Tobacco Use Types [...] documented as of this encounter Care Teams Fire Management Technician Relationship Specialty Start Date End Date Deborah Rg DO [address] [facility] [address] [place], [place] [phone] PCP - General Family Medicine 12/15/22 12/19/23 Sia Guajardo MD [address] [facility] [address] [place], [place] [address] PCP - General Internal Medicine 12/20/23 Aleja Price DNP, BEHAVIORAL TECHNICIAN-C [address] [place] [phone] Nurse Practitioner Family 03/29/23 documented as of this encounter
--- OUTSIDE RECORDS SUMMARY | 2025-07-30 22:31 | XMS_ITS | Encounter Summary ---
Author Organization [facility] [employer] Address [address] [place] [address] Care Team Providers Care Clinical Research Assistant Name Role Phone None Per Patient, None Per Pt Primary Care Provi shanelle Unavailable Reason for Visit * Reason Onset Date Comments Other (see comments) 10/24/2019 DX code Encounter Details Date Type Department Care Team (Late st Contact Info) Description 10/24/2019 Telephone [facility]- Surgical Oncology [address] [place] [address] [phone] Jose Armando MD [address] [facility] [address] [place] [address] Other (see comments) (DX code) Social History Tobacco Use Types Packs/Day Years [...] encounter Miscellaneous Notes * Telephone Encounter - Jose Armando MD - 10/24/2019 9:31 AM PST Went in and changed the diagnosis which was incorrectly entered on 10/12 as stage 2 invasive cancer.This has been rectified. Called Astrid to reassure her that again, she does not have stage 2 cancerand apologized for any anxiety this confusion caused her and promised her a high level of attentionto detail going forward. Jose Armando * Telephone Encounter - Yulissa Golden CrMA - 10/24/2019 7:49 AM PST Pt LVM stating that when looking at her MRI results, the dx code is still coded as her being in stage [address]. [address] Armando told her that she is not a stage 2 but when she saw the same wording on how it was coded on her MRI results it is making her upset and she said she doesn't know what is going on. I called the patient and left a detailed message let ting her know that she is a stage [address] Armando said. I explained it is just the way it was coded. I told her we will work on getting that coding changed. Told her to call back if she has any other questions. documented in this encounter Plan of Treatment Not on file documented as of this encounter Visit Diagnoses Not on filedocumented in this encounter Care Teams Clinical Research Assistant Relationship Specialty Start Date End Date None Per Patient, None Per Pt PCP - General 02/27/23 documented as of this encounter
--- OUTSIDE RECORDS SUMMARY | 2025-07-30 22:31 | XMS_ITS | Encounter Summary ---
Author Organization [facility] Address [address] [place] [address] Care Team Providers Care Office Analyst Name Role Phone None Per Patient, None Per Pt Primary Care Provi shanelle Unavailable Encounter Details Date Type Department Care Team (Late st Contact Info) Description 10/16/2015 Historical Radiology Encounter [facility] Administrative Office [address] [facility], [address] [place] [address] Antonia Guillermo MD Social History Tobacco Use Types Packs/Day Years [...] Procedure Name Priority Date/Time Associated Diagnosis Comments A HISTORICAL ULTRASOUND 10/16/2015 12:00 AM PST documented in this encounter Results * [facility] Historical Ultrasound (10/16/2015 12:00 AM PST) Anatomical Region Laterality Modality Other 10/16/2015 Narrative 02/11/2018 10:49 AM PDT Patient: Astrid Magallanes ID: [id number] Note: All result statuses are Final unless otherwise noted. Tests: (1) (Ultrasound) R4 SEE REPORT *1 Obstetric Ultrasound Report Early Limited Survey Referral from: . Dr. Antonia Guillermo [facility], [facility]. [facility] [address] [place] [address] [place] [address] PATIENT INFORMATION: Name: Astrid Magallanes MR#: [id number] Age: 30 y/o Exam Date: 10/16/2015 : 1985 Visit #: 2 LMP: 07/07/2015 Location: [facility] # Fetuses: 1 INDICATION: Sequential Screening - Nuchal Translucency APPROACH: Transabdominal. DATING: Assigned GA GA by LMP GA by Ultrasound (US) JUNAID 14 3/7 wks 12 4/7 wks 11 5/7 wks 05/01/16 ECTOPIC : Location: EGA: Uterine Changes: Viability: GESTATION: Sac Conway-Rump Heart Measurement Yolk Sac Length Rate ------- Present --- 61.2mm (12 4/7 150 bpm wks) Gestational Sac: Seen. Normal position within uterus. FINDINGS: Nuchal Trans: Seen UTERUS: Normal OVARIES: Right: Normal - 35 x 22 x 18 Left: Suboptimal mm. COMMENTS: Nuchal translucency measures 1.7 mm. The adjusted risks for Down Syndrome and Trisomy 18 will be based on maternal age, nuchal translucency measurement, first trimester serum markers (drawn today) and a second trimester blood draw at 16-18 weeks. Mariella Mejia M.D. Addiction Social Worker: Klarissa Cristobal RDMS DateOfExam 10/16/2015 (R) JUNAID 05/01/2016 (R) Bean Joseph 01/07 wks (R) Note: An exclamation dylan (!) indicates a result that was not dispersed into the flowsheet. Document Creation Date: 10/16/2015 11:09 AM (1) Order result status: Final Collection or observation date-time: 10/16/2015 00:00:00 Requested date-time: Receipt date-time: Reported date-time: Referring Physician: Ordering Physician: Antonia KOEHLER) Specimen Source: Source: R4 Filler Order Number: [id number] Lab site: Director Of Preclinical Research ID *[id number] The following non-numeric lab results were dispersed to the flowsheet even though numeric results were expected: JUNAID, 05/01/2016 Bean, 12 01/07 wks Procedure Note Antonia Guillermo MD - 03/17/2018 Patient: Astrid Magallanes ID: [id number] Note: All result statuses are Final unless otherwise noted. Tests: (1) (Ultrasound) R4 SEE REPORT*1 Obstetric Ultrasound Report Early Limited Survey Referral from:. Dr. Antonia Guillermo [facility] [address] [place] [address] [address] [facility] [address] [place] [address] PATIENT INFORMATION: Name: Astrid Magallanes MR#: [id number] Age: 30 y/o Exam Date: 10/16/2015 : 1985 Visit #: 2 LMP: 07/07/2015 Location: [facility] # Fetuses: 1 INDICATION: Sequential Screening - Nuchal Translucency APPROACH: Transabdominal. DATING: Assigned GA GA by LMP GA by Ultrasound (US) JUNAID 14 3/7 wks 12 47 wks 11 5/7 wks 05/01/16 ECTOPIC : Location: EGA: Uterine Changes: Viability: GESTATION: Sac Conway-Rump Heart Measurement Yolk Sac Length Rate ------- Present --- 61.2mm (12 01/07 150 bpm wks) Gestational Sac: Seen. Normal position within uterus. FINDINGS: Nuchal Trans: Seen UTERUS: Normal OVARIES: Right: Normal - 35 x 22 x 18 Left: Suboptimal mm. COMMENTS: Nuchal translucency measures 1.7 mm. The adjusted risks for Down Syndrome and Trisomy 18 will be based on maternal age, nuchal translucency measurement, first trimester serum markers (drawn today) and a second trimester blood draw at 16-18 weeks. Mariella Mejia M.D. Addiction Social Worker: Klarissa Cristobal RDMS DateOfExam 10/16/2015 (R) JUNADI 05/01/2016 (R) GAbyUS 12 01/07 wks (R) Note: An exclamation dylan (!) indicates a result that was not dispersedinto the flowsheet. Document Creation Date: 10/16/2015 11:09 AM (1) Order result status: Final Collection or observation date-time: 10/16/2015 00:00:00 Requested date-time: Receipt date-time: Reported date-time: Referring Physician: Ordering Physician: Antonia KOEHLER) Specimen Source: Source: R4 Filler Order Number: [id number] Lab site: Director Of Preclinical Research ID *[id number] The following non-numeric lab results were dispersed to the flowsheet even though numeric results were expected: JUNAID, 05/01/2016 GAbyUS, 12 4/ wks us Antonia Guillermo MD IMG US ORDERABLES Final Resul t documented in this encounter Visit Diagnoses Not on filedocumented in this encounter Care Teams Office Analyst Relationship Specialty Start Date End Date None Per Patient, None Per Pt PCP - General 02/27/23 documented as of this encounter
--- OUTSIDE RECORDS SUMMARY | 2025-07-30 22:31 | XMS_ITS | Clinical Summary ---
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 Not on trupti e 01/27/2023 Are you concerned about learning? Not on file 01/27/2023 No 01/27/2023 No 01/27/2023 Food Answer Date Recorded Within the past 6 months we worried whether our food would run out before we got money to buy more. Never True 07/17/2025 Within the past 6 months the food we bought just didn't last and we didn't have enough money to get more. Never True Residential Stability Answer Date Recor ded What is your housing situation today? I have jayla sing 07/17/2025 How many times have you move d in the past 12 months? Zero (I did not move) 07/17/2025 Paying for Meds Answer Date Recorded Do you have trouble paying for medicines? No 07/17/2025 Paying Utility Bills Answer Date Record ed Do you have trouble paying your heating or elect ricity bill? No 07/17/2025 Transportation Answer Date Recorded Has the lack of transportati on kept you from medical appointments or from getting medications? No 07/17/2025 Digital Access Answer Date Recorded No 07/17/2025 Yes 07/17/2025 Do you have reliable internet access at home? Ye s 07/17/2025 Do you have a device (e.g., phone, tablet, computer) with a working camera? Yes 07/17/2025 Intimate Partner Violence Answer Date R ecorded Are you denied basic needs s uch as food, clothing, or medical care? No 07/17/2025 In the past 12 months have y ou been in a relationship with a person who hurts, threatens, or tries to control you? No 07/17/2025 Are you denied basic needs s uch as food, clothing, or medical care? No 07/17/2025 In the past 12 months have y ou been in a relationship with a person who hurts, threatens, or tries to control you? No 07/17/2025 Comments Unknown Sex and Gender Information Value Date Recorded Sex Assigned at Not on file Legal Sex Female 8:06 PM EST Gender Identity Not on file Sexual Orientation Not on file Last Filed Vital Signs Vital Sign Reading Time Taken Comments Blood Pressure 146/81 07/17/2025 7:25 PM EDT Pulse 123 07/17/2025 7:23 PM EDT Temperature 36.2 C (97.2 F) 07/17/2025 7:23 PM EDT Respiratory Rate 20 07/17/2025 7:23 PM EDT Oxygen Saturation 97% 07/17/2025 7:23 PM EDT Inhaled Oxygen Concentration - - Weight 90.7 kg (200 lb) 07/17/2025 7:23 PM EDT Height 167.6 cm (5' 6 ) 07/17/2025 7:23 PM EDT Body Mass Index 32.28 07/17/2025 7:23 PM EDT Plan of Treatment Health Maintenance Due Date Last Done Comments DEPRESSION SCREENING 1999 SMOKING Hx and SMOKELESS TOBACCO SCREENING 2000 HEPATITIS C SCREENING 2005 HIV ONE-TIME SCREENING (18-6 5 YEARS) 2005 PNEUMOCOCCAL VACCINES (0-49 years) (1 of 2 - PCV) 2006 PAP SMEAR 2008 Adult Td,Tdap Booster 10/27/2023 10/27/2013 , 07/08/2008 INFLUENZA VACCINE (#1) 2025 COVID-19 VACCINE (2024-2 6 season) 2025 SCREENING FOR DIABETES 07/17/2028 , 09/19/2023 HEPATITIS A VACCINES Aged Out No long er eligible based on patient's age to complete this topic HIB VACCINES Aged Out No longer eligi ble based on patient's age to complete this topic MENINGOCOCCAL VACCINES (ACWY) Aged Out No longer eligible based on patient's age to complete this topic MENINGOCOCCAL VACCINES (B) Aged Out N o longer eligible based on patient's age to complete this topic Medical Devices Not on file Procedures Procedure Name Priority Date/Time Associated Diagnosis Comments CT ABDOMEN/PELVIS WITH CONTRAST Routine 07/17/2025 10:55 PM EDT ECG 12-LEAD STAT 07/17/2025 9:56 PM EDT C-REACTIVE PROTEIN Routine 07/17/2025 8: 27 PM EDT HCG, SERUM QUALITATIVE STAT 07/17/2025 8:27 PM EDT LIPASE STAT 07/17/2025 8:27 PM EDT LFTS (HEPATIC PANEL) STAT 07/17/2025 8:27 PM EDT BASIC METABOLIC PANEL STAT 07/17/2025 8:27 PM EDT CBC AND DIFFERENTIAL STAT 07/17/2025 8:27 PM EDT URINALYSIS W/REFLEX URINE CULTURE STAT 07/17/2025 8:19 PM EDT from Last 3 Months Results * CT ABDOMEN/PELVIS WITH CONTRAST (07/17/2025 10:55 PM EDT) Anatomical Region Laterality Modality Abdomen, Pelvis Computed Tomogra phy 07/18/2025 12:5 3 AM EDT Impressions 07/18/2025 1:09 AM EDT No acute abnormality in the abdomen or pelvis. Narrative 07/18/2025 1:[address] ABDOMEN/PELVIS WITH CONTRAST Referring clinician's provided indication for this examination in Psychiatric: * Abdominal pain, acute, nonlocalized TECHNIQUE: Multidetector-row CT of the abdomen and pelvis was performed after administration of intravenous contrast using tailored dose modulation techniques. Images were reconstructed in the axial, coronal, and sagittal planes. COMPARISON: FINDINGS: Lower Chest: No consolidation or pleural effusions. Liver: No focal lesions. Biliary: Status post cholecystectomy. No biliary ductal dilatation. Spleen: No splenomegaly or focal lesions. Pancreas: No masses or ductal dilatation. Adrenal Glands: No nodules. Kidneys/Ureters: No stones or hydronephrosis. Bowel: No bowel wall thickening or dilatation. Normal appendix. Peritoneum/Retroperitoneum: No pneumoperitoneum or free fluid. Lymph Nodes: No lymphadenopathy. Pelvic Organs/Bladder: No significant abnormality. Vessels: No abdominal aortic aneurysm. Bones/Soft Tissues: No significant abnormality. Procedure Note Mora Foster MBBS - 07/18/2025 CT ABDOMEN/PELVIS WITH CONTRAST Referring clinician's provided indication for this examination in Psychiatric: *Abdominal pain, acute, nonlocalized TECHNIQUE: Multidetector-row CT of the abdomen and pelvis was performedafter administration of intravenous contrast using tailored dosemodulation techniques. Images were reconstructed in the axial, coronal,and sagittal planes. COMPARISON: FINDINGS: Lower Chest: No consolidation or pleural effusions. Liver: No focal lesions. Biliary: Status post cholecystectomy. No biliary ductal dilatation. Spleen: No splenomegaly or focal lesions. Pancreas: No masses or ductal dilatation. Adrenal Glands: No nodules. Kidneys/Ureters: No stones or hydronephrosis. Bowel: No bowel wall thickening or dilatation. Normal appendix. Peritoneum/Retroperitoneum: No pneumoperitoneum or free fluid. Lymph Nodes: No lymphadenopathy. Pelvic Organs/Bladder: No significant abnormality. Vessels: No abdominal aortic aneurysm. Bones/Soft Tissues: No significant abnormality. IMPRESSION: No acute abnormality in the abdomen or pelvis. Marine Azar PA-C IMG CT ABD/PELVIS Final Resu lt * ECG 12-LEAD (07/17/2025 9:56 PM EDT) Ventricular Rate EKG/MIN 85 BPM [facility] Atrial Rate 85 BPM [facility] IA Interval 120 ms [facility] QRS Duration 84 ms [facility] QT Interval 360 ms [facility] QTC Interval 428 ms [facility] P Imboden 41 degrees [facility] R Wave Imboden 48 degrees [facility] T Wave [place]mb[place] 43 degrees [facility] 07/17/2025 9:56 PM EDT 07/18/2025 10:17 AM EDT Narrative [facility] - 07/18/2025 10:17 AM EDT Suspect unspecified pacemaker failure Normal sinus rhythm Junctional ST depression, probably normal Borderline ECG No previous ECGs available Confirmed by Michael Thomas ([id number]) on 07/18/2025 10:17:54 AM Marine Azar PA-C ECG ORDERABLES Final Result [facility] * HCG, serum qualitative (07/17/2025 8:27 PM EDT) HCG, QUALITATIVE Negative Negative IU/L [facility] Blood 07/17/2025 8:27 PM EDT 07/17/2025 8:32 PM EDT Marine Azar PA-C LAB BLOOD ORDERABLES Final R esult Performing Organization Address City/[facility]/ZIP Co de Phone Number [address] [address] * LFTs (hepatic panel) (07/17/2025 8:27 PM EDT) ALKALINE PHOSPHATASE 106 39 - 117 U/L [facility] TOTAL BILIRUBIN 0.3 0.0 - 1.2 mg/dL [facility] DIRECT BILIRUBIN 0.1 0.0 - 0.2 mg/dL [facility] Bilirubin (Indirect) NOT CALCULATED 0 - 1.5 mg/dL [facility] AST 28 0 - 37 U/L [facility] ALT 20 0 - 40 U/L [facility] TOTAL PROTEIN 7.8 6.5 - 8.0 g/dL [facility] ALBUMIN 4.4 3.9 - 4.8 g/dL [facility] GLOBULIN 3.4 1 - 4.8 g/dL [facility] A/G Ratio 1.29 1.00 - 4.80 RATIO [facility] Blood 07/17/2025 8:27 PM EDT 07/17/2025 8:32 PM EDT Marine Azar PA-C LAB BLOOD ORDERABLES Final R esult [address] [address] * CBC and differential (07/17/2025 8:27 PM EDT) WBC 6.28 4.00 - 11.00 K/uL [facility] RBC 4.66 4.00 - 5.20 M/uL [facility] HGB 14.1 12.0 - 16.0 g/dL [facility] HCT 41.2 36.0 - 46.0 % [facility] PLT 322 150 - 450 K/uL [facility] MCV 88.4 80.0 - 100.0 fL [facility] MCH 30.3 27.0 - 31.0 pg [facility] MCHC 34.2 32.0 - 36.0 g/dL [facility] RDW 12.5 11.5 - 14.5 % [facility] MPV 11.5 8.4 - 12.0 fL [facility] NRBC 0.00 0.00 /100 WBCs [facility] ABSOLUTE NRBC 0.00 0.00 K/uL [facility] DIFF METHOD Auto [facility] NEUTS 61.7 48.0 - 76.0 % [facility] LYMPHS 25.5 18.0 - 41.0 % [facility] MONOS 10.8 4.0 - 11.0 % [facility] EOS 1.0 0.0 - 5.0 % [facility] BASOS 0.5 0.0 - 1.5 % [facility] Granulocytes, immature (%) 0.5 0.0 - 0.9 % [facility] ABSOLUTE NEUTS 3.88 1.92 - 7.60 K/uL [facility] ABSOLUTE LYMPHS 1.60 0.72 - 4.10 K/uL [facility] ABSOLUTE MONOS 0.68 0.16 - 1.10 K/uL [facility] ABSOLUTE EOS 0.06 0.00 - 0.50 K/uL [facility] ABSOLUTE BASOS 0.03 0.00 - 0.15 K/uL [facility] Granulocytes, immature 0.03 0.00 - 0.09 K/uL [facility] Blood 07/17/2025 8:27 PM EDT 07/17/2025 8:32 PM EDT us Marine Azar PA-C LAB BLOOD ORDERABLES Final R esult [facility] [address] [place] [address] * C-Reactive Protein (07/17/2025 8:27 PM EDT) C REACTIVE PROTEIN 3.4 0.0 - 4.0 mg/L [facility] 07/17/2025 8:27 PM EDT 07/17/2025 8:32 PM EDT Marine Azar PA-C LAB BLOOD ORDERABLES Final R esult [address] [address] * Lipase (07/17/2025 8:27 PM EDT) LIPASE 36 16 - 63 U/L [facility] Blood 07/17/2025 8:27 PM EDT 07/17/2025 8:32 PM EDT [facility] BLOOD ORDERABLES Final R esult Performing Organization Address City/[facility]/ZIP Co de Phone Number [address] [address] * (ABNORMAL) Basic metabolic panel (07/17/2025 8:27 PM EDT) SODIUM 138 133 - 146 mmol/L [facility] CHLORIDE 102 96 - 108 mmol/L [facility] POTASSIUM 4.2 3.3 - 5.1 mmol/L [facility] CO2 24 21 - 35 mmol/L [facility] BUN 9 6 - 19 mg/dL [facility] CREATININE 0.80 0.5 - 1.5 mg/dL [facility] GLUCOSE 108(H) 70 - 99 mg/dL [facility] CALCIUM 10.1 8.4 - 10.3 mg/dL [facility] EGFR 97 >59 mL/min/1.7 3m2 [facility] Comment:Estimated glomerular filtration rate calculated using the CKD-EPI refit equation. ANION GAP 16 10 - 20 mmol/L [facility] Blood 07/17/2025 8:27 PM EDT 07/17/2025 8:32 PM EDT Marine Azar PA-C LAB BLOOD ORDERABLES Final R esult Performing Organization Address City/[facility]/ZIP Co de Phone Number [address] [address] * (ABNORMAL) Urinalysis w/reflex Urine Culture (07/17/2025 8:19 PM EDT) COLOR STRAW(A) Yellow [facility] CLARITY Clear [facility] GLUCOSE Negative Negative [facility] BILI Negative Negative [facility] KETONES Negative Negative [facility] SPECIFIC GRAVITY <1.005 1.005 - 1.030 [facility] BLOOD Negative Negative [facility] PH 6.0 5.0 - 8.0 [facility] Protein-UA Negative Negative [facility] NITRITE Negative Negative [facility] Leukocyte esterase, ur Negative Negative [facility] Urine (Urine) 07/17/2025 8:1 9 PM EDT 07/17/2025 8:28 PM EDT Marine Azar PA-C URINE ORDERABLES Final Resul t Performing Organization Address City/[facility]/ZIP Co de Phone Number [address] [address] from Last 3 Months Insurance [facility] [place] [facility] [place] [facility] [place] [address] [place] [address] [employer] Care Teams Porter Luggage Relationship Specialty Start Date End Date Pcp, Unknown PCP - General 07/17/25 Additional Source Comments The information contained in this document represents components of the legal health record. It is not the complete legal health record.[facility]
--- OUTSIDE RECORDS SUMMARY | 2025-07-30 22:31 | XMS_ITS | Clinical Summary ---
Author Organization [facility] Address [address] [place] [address] Phone Care Team Providers Care [employer] Salesperson Name Role Phone Aleja Price DNP, OUT AND OUT CIGAR MAKER HAND-C Unavailable Casandra Murphy MD, [facility] Primary Care Provider [phone] Allergies Active Allergy Reactions Criticality Noted Date Comments Adhesive Rash Medium 10/15/2019 Very bad rash Adhesive Tape-Silicones Rash Medium 10/15/2019 Very bad rash Immune Globulin (Human) (Igg) Anaphylaxis High 03/31/2023 IVIG activates my lymphatic system makes me go into multiple organ dysfunction Levothyroxine Urticaria,Nausea and Vomiting Medium 02/19/2022 No reaction to brand name Synthroid. Morphine Unknown,Seizures Medium 11/19/2019 Seizures. Not sure if it was coincidental as she was passing a kidney stone at that time. She tolerates other opioids. Hydrocodone causes nausea. Oxycodone seems to be fine. Morpholine Analogues Unknown Low 02/14/2016 seizures Nifedipine Headache,Hives,Photo sensitivity,Rash,Dys pnea,Swelling-Facial High 03/31/2023 Medications DULoxetine 30 mg oral capsule,delayed release(DR/EC) Take by mouth once daily. 09/02/2022 Active levothyroxine 200 mcg oral tablet Take 250 mcg by mouth daily before breakfast. Active guanFACINE 2 mg oral tablet Take 2 mg by mouth once daily in the evening. Active fluocinonide 0.05 % topical solution Apply to affected area once daily as needed. Apply a thin film to lesions for up to 4 weeks as tolerated. Active clobetasoL 0.05 % topical ointment Apply to affected area once daily. Apply for up to 2 weeks. Active dextroamphetami ne-amphetamine 10 mg oral tablet 02/16/2023 Active lisdexamfetamin e (VYVANSE) 70 mg oral capsule Take 70 mg by mouth once daily in the morning. 02/14/2023 Active LORazepam 0.5 mg oral tablet take 1/2 tablet by mouth twice daily as needed for anxiety 09/02/2022 Active tamoxifen 20 mg oral tablet Take 20 mg by mouth once daily. 04/19/2023 Active Active Problems Problem Noted Date Diagnosed Date Subjective visual disturbances 10/25/2023 Assessment & Plan (10/25/2023 5:02 PM PST): Patient referred by Dr. 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 - cholecystectomy -- unclear pathology discovered; done initially for gall stones - reports varying abnormalities in eosiniophil and monocyte counts Exam today is essentially unremarkable other than the unexplained decrease in acuity in both eyes - [place] with regular appearing Sagar disc images OU - color plates were symmetric - exam with mild elevation of the ONH OS ST -- rNFL does not support this finding; essentially normal study - no evidence of intraocular inflammation - clear lens (is currently on Prednisone) - macula with flat appearance, (+) FLR, no bulls eye pattern, no IS-OS disruption on macular OCT - retina without evidence of Tamoxifen toxicity Had an MRI orbit; has been seen by Dr. 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 Overview (05/19/2023): #castlemans dz ?R neck nodes removed in 1992, 1993; R axilla 2019 No other details given today Blood pressure elevated without history of HTN 1 10/05/2021 Overview (01/06/2023): #elevated BPs Pt w SBP 132 today: ?if this is a persistent issue or just related to being in the doctor's office If persistent, then it could contribute to pt's ?SLE dx data points -monitor BPs -pt may need tx if persistently >120s Attention deficit hyperactivity disorder (ADHD) 07/19/2022 Overview (01/06/2023): #ADHD Pt see psychiatry for therapy/meds -adderall 20mg TID -lisdexamfetamine (vyvanse) 70mg daily: titrating down/off this in order to come up on the newer guanfacine med -guanfacine (tenex) 2mg BID Malignant neoplasm of female breast 09/15/2019 05/19/2023 Overview (05/19/2023): Right breast cancer Immunizations Immunization Administration Dates Next Due HPV, NOS 01/01/2010 HepA-Adult 01/01/2010 HepB-Adult 01/01/2010 Influenza, injectable, quadr ivalent, preservative free (IIV4) 09/11/2015 PCV13 11/19/2019 Vaccinia (smallpox) 10/03/1989 Varicella 10/03/1989 Zoster live 10/03/1989 Family History Medical History Relation Name Comments Cancer Mother Mom Depression Mother Mom Ovarian Cancer Mother Mom Relation Name Status Comments Mother Mom Social History Tobacco Use Types Packs/Day Years Used Date Smoking Tobacco: Former Cigarettes 0.5 4 0 10/03/2005 - 10/03/2009 Passive Smoke Exposure: Never Smokeless Tobacco: Never Tobacco Cessation:Counseling Given: Not Answered Alcohol Use Standard Drinks/Week Comments Never 0 (1 standard drink = 0.6 oz pur e alcohol) PHQ-2 Answer Date Recorded Total 6 12/15/2022 Comments No Sex and Gender Information Value Date Recorded Sex Assigned at Not on file Legal Sex Female 11:45 AM PST Gender Identity Female 03/15/2023 8:00 AM PDT Sexual Orientation Not on file Last Filed Vital Signs Vital Sign Reading Time Taken Comments Blood Pressure 151/88 02/17/2024 8:04 AM PDT BP Location: Left upper arm Patient Position (Retired): Sitting Pulse 112 02/17/2024 8:04 AM PDT Temperature 37.2 C (99 F) 02/17/2024 8:04 AM PDT Respiratory Rate 18 02/17/2024 8:04 AM PDT Oxygen Saturation 100% 02/17/2024 8:04 AM PDT Inhaled Oxygen Concentration - - Weight 91.6 kg (202 lb) 02/17/2024 8:04 AM PDT Height 162.6 cm (5' 4 ) 02/17/2024 8:04 AM PDT Body Mass Index 34.67 02/17/2024 8:04 AM PDT Plan of Treatment Health Maintenance Due Date Last Done Comments Cholesterol screening 1987 COVID-19 Vaccination (3 - Pfizer risk series) 03/17/2021 02/17/2021, 01/27/2021 Influenza (Flu) vaccination (#1) 2025 09/11/2015 Orthopox (Mpox) Vaccination Completed 10/03/1989 Pneumococcal vaccination Aged Out 020, 11/19/2019 No longer eligible based on patient's age to complete this topic Insurance [facility] Care Teams [employer] Salesperson Relationship Specialty Start Date End Date Sia Guajardo MD [address] [facility] [address] [place] [address] PCP - General Internal Medicine 12/20/23 Aleja Price, RAMESH, OUT AND OUT CIGAR MAKER HAND-C [address] [facility] [place] [phone] Nurse Practitioner Family 03/29/23
--- OUTSIDE RECORDS SUMMARY | 2025-07-30 22:31 | XMS_ITS | Encounter Summary ---
Author Organization [facility] Address [address] [place] [address] Phone Care Team Providers Care Brief Writer Name Role Phone No Pcp Per Patient Primary Care Provider Unavail able Deborah Rg DO Primary Care Provider [phone] Aleja Price DNP, RODDING ANODE WORKER-C Unavailable Casandra Murphy MD, Sia Donald Primary Care Provider [phone] Encounter Details Date Type Department Care Team (Late st Contact Info) Description 12/06/2022 Documentation Dermatology Medical at [facility], [address] [place] [facility] [address] Rosie Faria MD [address] [place] [address] Social History Tobacco Use Types Packs/Day Years Used Date Smoking Tobacco: Never Assessed Comments Unknown Sex and Gender Information Value Date Recorded Sex Assigned at Not on file Legal Sex Female 11:45 AM PST Gender Identity Female 03/15/2023 8:00 AM PDT Sexual Orientation Not on file COVID-19 Exposure Response Date Recorded In the last 10 days, have yo u been in contact with someone who was confirmed or suspected to have Coronavirus/COVID-19? No / Unsure 12/08/2022 12:54 PM PST documented as of this encounter Plan of Treatment Not on file documented as of this encounter Visit Diagnoses Not on filedocumented in this encounter Care Teams Brief Writer Relationship Specialty Start Date End Date No Pcp Per Patient NO PCP PER PATIENT PCP - General 10/01/19 12/14/22 Deborah Rg DO [address] [facility] [address] [place], [place] [id number] PCP - General Family Medicine 12/15/22 12/19/23 Sia Guajardo MD [address] [facility] [address] [place], [place] [id number] PCP - General Internal Medicine 12/20/23 Aleja Price DNP, RODDING [employer] WORKER-C [address] [place] [address] Nurse Practitioner Family 03/29/23 documented as of this encounter
--- OUTSIDE RECORDS SUMMARY | 2025-07-30 22:31 | XMS_ITS | Encounter Summary ---
Author Organization [facility] Address [address] [place] [address] Phone Care Team Providers Care Crystal Lapper Name Role Phone Deborah Rg DO Primary Care Provider [phone] Aleja Price DNP, MAINTENANCE TRAINER-C Unavailable Casandra Murphy MD, Sia Donald Primary Care Provider [phone] Encounter Details Date Type Department Care Team (Late st Contact Info) Description 04/27/2023 Telephone Neurology Neuromuscular Clinic at [facility] [address] [facility] , [address] [place] [address] Ehsan Hayward, RN [address] [place] [address] Social History Tobacco Use Types Packs/Day Years [...] encounter Miscellaneous Notes * Telephone Encounter - Ehsan Hayward - 05/05/2023 2:06 PM PDT Called and lvm, CB number provided. * Telephone Encounter - Ehsan Hayward - 04/27/2023 10:50 AM PDT Called and LVM, Cb number provided. documented in this encounter Plan of Treatment Not on file documented as of this encounter Visit Diagnoses Not on filedocumented in this encounter Additional Health Concerns Assessment Noted Time PHQ-2 Depression Total Score: 6 12/16/19 8:00 AM PDT documented as of this encounter Care Teams Crystal Lapper Relationship Specialty Start Date End Date Deborah Rg DO [address] [facility] [address] [place] [address] PCP - General Family Medicine 12/15/22 12/19/23 Sia Guajardo MD [address] [facility] [address] [place], [place] [address] PCP - General Internal Medicine 12/20/23 Aleja Price DNP, MAINTENANCE TRAINER-C [address] [id number] Nurse Practitioner Family 03/29/23 documented as of this encounter
--- OUTSIDE RECORDS SUMMARY | 2025-07-30 22:31 | XMS_ITS | Encounter Summary ---
Author Organization [facility] Address [address] [place] [address] Phone Care Team Providers Care Commercial Trailer Truck Driver Name Role Phone Aleja Price DNP, WEAVING LOOM OPERATOR-C Unavailable Casandra Murphy MD, Sia Donald Primary Care Provider [phone] Encounter Details Date Type Department Care Team (Late st Contact Info) Description 02/08/2025 Home Infusion CPR+ UNKNOWN DEPARTMENT [address] [place] [address] Other, Faculty Social History Tobacco Use Types Packs/Day Years [...] documented as of this encounter Care Teams Commercial Trailer Truck Driver Relationship Specialty Start Date End Date Sia Guajardo MD [address] [place], [place] [address] PCP - General Internal Medicine 12/20/23 Aleja Price DNP, WEAVING LOOM OPERATOR-C [address] [place] [address] Nurse Practitioner Family 03/29/23 documented as of this encounter
--- OUTSIDE RECORDS SUMMARY | 2025-07-30 22:31 | XMS_ITS | Data Portability ---
Author Organization [place] [facility] [place] [facility] Address [address], [facility] [address] [place] [address] Care Team Providers Care Composing Room Supervisor Name Role Phone ANALISA BARCLAY OTHER Assessment Encounter Date Assessment Date Assessment LastModified by Organization Details LastModified Time 09/21/2019 09/21/2019 34yo here for new right breast lump. Family history of breast cancer: Mother Dx at age 53. On exam: right breast 1 o'clock at edge of areola, 1x1.5cm lump, hard, smooth, mobile. Referral for right breast diagnostic mammogram and right breast ultrasound. [facility] 09/21/2019 17:30:27 Plan of Treatment Reminders Order Date Submit Date Provider Last Modified By Organization Details Last Modified Time Details Appointments None recorded. Lab None recorded. Referral None recorded. Procedures None recorded. Surgeries None recorded. Imaging MAMMO, diagnostic, digital, unilateral 2018 019 [facility], [address] [place], [address], 9 18:44:50 US, breast, unilateral 2018 019 [facility], [address] [place], [address], 9 18:42:58 Medication Orders None recorded. Patient TargetsNo targets recorded. Patient Instructions Encounter Date Encounter Id Patient Instructions Last Modified By Organization Details Last Modified Time 09/21/2019 [id number] Discussion of personal and family history, discussed possible etiologies for breast lump, what to expect for imaging and evaluation . Visit today consisted chiefly of face to face discussion with the patient regarding above listed concerns. Greater than 51% of the time was spent in this fashion total time spent face to face was 20 minutes. [facility] Not available 09/21/2019 17:32:17 Reason for Referral None Reported. Results Created Date Observation Date Name Description Value Unit Range Abnormal Flag Note LastModifiedBy Organization Detail LastModifiedTime 09/24/20 19 09/24/2019 annel YOON, unila teral No observ ation record ed. [facility] [address] [place], [address], 09/27/2019 12:43:08 09/24/20 19 09/24/2019 MAMMO , diagn ostic , digit al, unila teral No observ ation record ed. [facility] [address] [place], [address], 09/27/2019 12:43:08 09/25/20 19 09/25/2019 biops y, annel t, w/ ultra sound steven nce (PROC ) No observ ation record ed. [facility] [address] [place], [address], 09/27/2019 14:46:16 10/01/20 19 09/25/2019 imagi ng/eugenie edmond t No observ ation record ed. [facility] [address] [place]ari [address] [place] [address], [address], 10/04/2019 13:07:05 Result Notes None recorded. Problems Name Problem SNOMED Code Status Onset Date Resolution Date Notes Provider Name and Address Organization Details Recorded Time Malignant neoplasm of female breast 929706039 Active 2018 Right breast cancer Sho Chick null, [place] - [facility] 0 12:37:09 Family history of breast cancer 617555424 Active 2018 Mother Dx age 53 Sho [facility] 9 17:10:59 Breast lump 93939971 Completed 201811/28/2019 Sho Felton [facility] 0 12:37:14 Problem Notes None recorded. Procedures Surgical History Date Name Laterality Status Provider Name and Address Organization Details Recorded Time 3 Removal of thyroid completed [facility] 09/21/2019 17:00:36 Imaging Results None recorded. Procedure Notes None recorded. Medical Equipment None Reported. Allergies Allergen ID Allergen Name Allergen Category Reaction Reaction Severity Criticality Documentation Date Start Date Code Code System Note Provider Name and Address Organization Details Recorded Time 28410 morphine medicatio n seizure Not available Not available 09/21/2019 7052 [facility]Norm [facility] 9 16:53:50 Medications Name Sig Start Date Stop Date Status Note LastModified by Organization Details LastModified Time Synthroid 200 mcg tablet active Not Available Not Available Not Available NuvaRing 0.12 mg-0.015 mg/24 hr vaginal active Not Available Not Available Not Available Vitals Date Recorded Body height Body mass index (BMI) Body weight Systolic And Diastolic Provider Name and Address Organization Details Last Updated DateTime 09/21/2019 165.1 cm 37.1 kg/m2 020523.82 g 108/68 mm[Hg] [facility] 09/21/2019 16:51:51 Social History Question Answer Notes LastModified by Organizat ion Details LastModified Time Tobacco Smoking Status Former Smoker quit 2010 [facility] 09/21/2019 16:59:17 Which Illicit Or Recreational Drugs Have You Used? None Information not available 09/21/2019 History Of Domestic Violence? No Information not available 09/21/2019 Spouse/partners Name Luigi Valles Information not available 09/21/2019 Marital Status Domestic Partner Information not available 09/21/2019 What Was The Date Of Your Most Recent Tobacco Screening? 09/21/2019 Information not available 09/21/2019 How Much Tobacco Do You Smoke? No Information not available 09/21/2019 Sex: Unknown Functional Status Question Answer Note LastModified by Organizat ion Details LastModified Time What is your level of alcohol consumption? Occasional Information not available 09/21/2019 Do you or have you ever used smokeless tobacco? 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 Never used electronic cigarettes Information not available 09/21/2019 What is your exercise level? None Information not available 09/21/2019 Mental Status None recorded. Family History Relationship Description Onset Age of this Age Resolved Age Notes LastModified by Organization Details LastModified Time Mother Malignant neoplasm of breast 53 [email or web address] Not available 2018 16:57:01 Mother Malignant neoplasm of thyroid gland Multip le endocr ine neopla seb, type 2A(MEN 2A) - medull angelique carcin gian [facility] Not available 09/21/2019 17:01:06 Mother Depressive disorder [facility] Not available 2018 16:58:58 Brother Malignant neoplasm of thyroid gland MEN2A, had thyroi d remove d [facility] Not available 09/21/2019 16:58:47 Medical History Condition Response Allergies/Hayfever N Diabetes N Anesthesia complications N Other N Migraine N Infertility N Renal Disease/Bladder problems N Cancer Y Anxiety/depression/mood N GI Problems N Defects or Inherited Disease N Connective Tissue Disorders N INC Exposure N Thyroid/Endocrine Y Endometriosis N Anemia N Asthma/lung disease N Neurologic Disease N Hepatitis N Heart Disease N DVT/Clotting Disorders N Hypertension N Chicken Pox Y Gynecological History Statement/Question Response G 2 None Date of LMP 09/16/2019 Frequency of Cycle (Q days) date of last Pap 10/03/2016 Duration of Flow (days) 3 Age at Menarche 13 Current Control Method Vaginal Rin g STD history? None P 0 Obstetrics History GPAL:G 2 P 0 0 2 0 Type Value Spontaneous 2 Living 0 Total 2 Immunizations Vaccine Type Date Status Note Provider Nam e and Address Organization Details Recorded Time varicella 0 completed Raisa Alvarado null, [facility] 09/21/2019 16:51:59 Hep A, adult 0 completed Raisa Alvarado null, [facility] 09/21/2019 16:51:59 Vaccinia (smallpox, mpox), live 0 completed Raisa Alvarado null, [facility] 09/21/2019 16:51:59 Influenza, split virus, quadrivalent, PF 5 completed Not Available [facility] 11/03/2019 02:13:10 HPV, unspecified formulation 0 completed Raisa Alvarado null, [facility] 09/21/2019 16:51:59 Hep B, adult 0 completed Raisa Alvarado null, [facility] 09/21/2019 16:51:59 zoster live 0 completed Raisa Alvarado null, [facility] 09/21/2019 16:51:59 Past Encounters Encounter ID Performer Location Encounter Start Date Encounter Closed Date Diagnosis/Indication Diagnosis SNOMED-CT Code Diagnosis ICD10 Code Diagnosis IMO Codes Diagnosis Note [id number] Sho Felton, [facility] [address] [facility], [address] [address] 09/21/2019 16:28:13 09/21/2019 17:33:39 Breast lump 33185765 N63.12 Family his tory of breast cancer 295612560 Z80.3 Health Concerns Section Related Observation LastModified by Organization Detai ls LastModified Time None Recorded Concern Status LastModified by Organization Details LastModified Time None Recorded Advance Directives Directive None Recorded Payers Insurance Date Sequence Insurance Name Policy Number Policy Mitchell Covered Member ID Mitchell Member ID Guarantor Name 09/21/2019 1 [facility] [id number] Luigi Raymon [id number] Astrid Magallanes Notes Date Note Type Note Provider Name and Address Organization Details Recorded Time 9 text/html Breast GeneralReported by PatientHPIFor location, patient reportsrightandupper inner quadrant. For identified, patient reportspatient identified mass. For quality/descriptive features, patient reportspalpable mass,size 1cm, andfirm. For associated symptoms, patient reportsno fever,no skin redness,no nipple discharge,no breast swelling,no arm pain,no arm swelling, andno chest pain. For context/breast history, patient reportsprior __ breast cancerandcurrent estrogen use (nuvaring)(family hx: patient's mother dx right breast ca this year. had mastectomy last week.). For alleviating factors, patient reportsnothing helps. For aggravating factors, patient reportsnothing makes it worse. For prior imaging, patient reportsultrasound (8yrs ago, benign findings). For duration, (found yesterday).ROS as noted in the HPI Sho Felton [facility], [place] - [facility] 09/21/2019 17:32:43 OBGyn Episode Ob Episode Information Episode Created Date Number of Fetuses Patient Bloodtype Patient rh Status Prepregnancy Weight lbs Domestic Partner Domestic Partner Phone Father Name Behavior Analyst Status 09/21/20 19 1 CLOSED Fetus Data First Name Last Name Admitted to NICU Weight (g) Sex Living Outcome Pediatric Complications Fetus ID Race Codes Race Delivery Type , Spontane ous [id number] Vernon Calculation Initial Vernon Date Initial Exam Date Initial Exam Provider Initial Ultrasound Date Last Menstrual Period Date Ultra Sound Weeks Gestation 0 Eighteen To Twenty Week Vernon Update Ultra Sound Date Fundal Height At Umbil Quickening Date Ultra Sound Latest Weeks Gestation Final [place] Confirmed By Final Vernon Confirmed Date Final Vernon Date Ultra Sound Latest Days Gestation 0 0 Menstrual History Last Menstrual Date Menses Monthly On Bcp Conception Prior Menses Frequency Hcg Plus Date Menarche Onset Age Delivery Information Delivery Date Delivery Type Labor Anesthesia Weeks Gestation Incision Type Labor Labor Length Hrs Delivered By Post Complications Tubal Sterilization Discharge Date Comments 5 Discharge Information Feeding Method Contraceptive Method Maternal HG B and HCT Levels Ob Episode Information Episode Created Date Number of Fetuses Patient Bloodtype Patient rh Status Prepregnancy Weight lbs Domestic Partner Domestic Partner Phone Father Name Behavior Analyst Status 09/21/20 19 1 CLOSED Fetus Data First Name Last Name Admitted to NICU Weight (g) Sex Living Outcome Pediatric Complications Fetus ID Race Codes Race Delivery Type , Spontane ous [id number] Vernon Calculation Initial [place] Date Initial Exam Date Initial Exam Provider Initial Ultrasound Date Last Menstrual Period Date Ultra Sound Weeks Gestation 0 Eighteen To Twenty Week Vernon Update Ultra Sound Date Fundal Height At Umbil Quickening Date Ultra Sound Latest Weeks Gestation Final [place] Confirmed By Final Vernon Confirmed Date Final Vernon Date Ultra Sound Latest Days Gestation 0 0 Menstrual History Last Menstrual Date Menses Monthly On Bcp Conception Prior Menses Frequency Hcg Plus Date Menarche Onset Age Delivery Information Delivery Date Delivery Type Labor Anesthesia Weeks Gestation Incision Type Labor Labor Length Hrs Delivered By Post Complications Tubal Sterilization Discharge Date Comments 6 Discharge Information Feeding Method Contraceptive Method Maternal HG B and HCT Levels
--- OUTSIDE RECORDS SUMMARY | 2025-07-30 22:31 | XMS_ITS | CCD ---
Author Name Interface, [id number] lity Address [address] [place] [address] Organization [facility] Address [address] [place] [address] Care Team Providers Care Sample Maker Name Role Phone Anh COFFMAN, Anny Botello Unavailable Unavailabl e Allergies and Adverse Reactions Medication/Group Name Reaction Severity Date morphine Seizure 01/11/2025 levothyroxine Vomiting 01/11/2025 adhesive Mild 01/11/2025 Care Plan Date Type Value 01/11/2025 APPOINTMENT CBC,CMP,6M OV BM P X1 01/11/2025 APPOINTMENT CBC,CMP,6M OV BM P X1 01/01/2025 APPOINTMENT CBC,CMP,6M OV BM P X1 01/01/2025 APPOINTMENT CBC,CMP,6M OV BM P X1 12/04/2024 APPOINTMENT Lab 12/04/2024 APPOINTMENT CBC,CMP, 6M EXOV 12/04/2024 APPOINTMENT CBC,CMP, 6M EXOV 12/04/2024 LAB_ORDER CBC w/ auto diff 12/04/2024 LAB_ORDER CMP 07/13/2025 LAB_ORDER CBC w/ auto diff Reason for Visit CBC,CMP,6M OV BMP X1 Encounters Date Name 01/11/2025 CBC,CMP,6M OV BMP X1 Diagnostic Results Date Type Test Units Lower Limit Upper Limit Result Flag Comments Status Ordered By Specimen Source Lab Address 01/11 CBC w/ auto diff Abhilash # (ANC) 10^3/u l 1.5 8.0 3.0 FINAL Anny Kamara [facility] ([place] [place], [address] [place] [id number] 0 01/11 CBC w/ auto diff MCV FL 80.0 100.0 90.4 FINAL Anny Husainiser [facility], [address] [place] [id number] 0 01/11 CBC w/ auto diff IG % % 0.0 1.0 0.50 FINAL [place] [facility], [address] [place] [id number] 0 01/11 CBC w/ auto diff MO # 10^3/u l 0.0 1.2 0.6 FINAL [place] [facility] ([facility], [address] [place] [id number] 0 01/11 CBC w/ auto diff MO % % 0.0 12.0 9.6 FINAL [facility], [address] [place] [id number] 0 01/11 CBC w/ auto diff IG # 10^3/u l 0.0 0.1 0.03 FINAL [facility], [address] [place] [id number] 0 01/11 CBC w/ auto diff EO # 10^3/u l 0.0 0.3 0.3 [facility], [address] [place] [id number] 0 01/11 CBC w/ auto diff EO % % 0.0 8.0 4.3 FINAL [facility], [address] [place] [id number] 0 01/11 CBC w/ auto diff RBC 10^6/u l 3.8 5.2 4.68 FINAL [facility], [address] [place] [id number] 0 01/11 CBC w/ auto diff MPV fL 6.5 12.4 10.9 FINAL [facility], [address] [place] [id number] 0 01/11 CBC w/ auto diff NRBC, % /100WB C 0.0 0.2 0.0 FINAL [facility] ([facility], [address] [place] [id number] 0 01/11 CBC w/ auto diff WBC 10^3/u l 4.0 11.0 5.8 FINAL [facility] ([facility], [address] [place] [id number] 0 01/11 CBC w/ auto diff PLT 10^3/u l 140.0 440.0 306 FINAL [facility], [address] [place] [id number] 0 01/11 CBC w/ auto diff BA % % 0.[address] [facility], [address] [place] [id number] 0 01/11 CBC w/ auto diff BA # 10^3/u l 0.0 0.3 0.0 FINAL [facility], [address] [place] [id number] 0 01/11 CBC w/ auto diff HGB g/dl 11.[address] [facility], [address] [place] [id number] 0 01/11 CBC w/ auto diff RDW % 11.5 15.0 12.7 FINAL [facility], [address] [place] [id number] 0 01/11 CBC w/ auto diff LY % % 16.0 51.0 32.9 FINAL [facility], [address] [place] [id number] 0 01/11 CBC w/ auto diff MCH pg 26.0 34.0 29.7 FINAL [facility], [address] [place] [id number] 0 04/11 /2025 CBC w/ auto diff LY # 10^3/u l 0.[address] [facility], [address] [place] [id number] 0 01/11 CBC w/ auto diff MCHC g/dL 32.[address] [facility], [address] [place] [id number] 0 01/11 CBC w/ auto diff NRBC, absol ana, x 10^3/ uL 10^3/u L 0.0 0.01 0.00 FINAL [facility] [address] [place] [address] Ave [address] [place] [id number] 0 01/11 CBC w/ auto diff HCT % 35.[address] [facility], [address] [place] [address] Ave [address] [place] [id number] 0 01/11 CBC w/ auto diff Abhilash % % 37.[address] [facility], [address] [place] [address] Ave [address] [place] [id number] 0 01/11 CMP Alkal ine phosp hatas e U/L 45.[address] 122[address] [facility], [address] [place] [address] Ave [address] [place] [id number] 0 01/11 CMP Calci um mg/dL 8.[address] [facility], [address] [place] [address] Ave [address] [place] [id number] 0 01/11 CMP ALT/S GPT U/L 0.0 31.0 13 FINAL [facility]), [address] [place] [address] Ave [address] [place] [id number] 0 01/11 CMP GFR estim ate mL/min /1.73m ^2 >[address] [facility], [address] [place] [id number] 0 01/11 CMP CO2 mmol/L 22.0 31.0 28 FINAL [place] [facility] ([facility])- [place], [address] [place] [id number] 0 01/11 CMP Gluco se mg/dL 70.0 115.0 94 FINAL An[place] [facility] ([facility], [address] [place] [id number] 0 01/11 CMP Globu niels g/dL 1.8 3.6 3.2 FINAL [facility] ([facility], [address] [place] [id number] 0 01/11 CMP Chlor cece mmol/L 96.0 108.0 103 [facility] ([facility], [address] [place] [id number] 0 01/11 CMP Total prote in g/dL 6.4 8.3 7.5 FINAL [place] [facility] ([facility], [address] [place] [id number] 0 01/11 CMP BUN mg/dl 6.0 20.0 11 [facility] ([facility], [address] [place] [id number] 0 01/11 CMP Creat inine mg/dL 0.4 1.1 0.8 FINAL [facility] ([facility], [address] [place] [id number] 0 01/11 CMP AST/S GOT U/L 0.0 41.0 19 FINAL [facility] ([facility], [address] [place] [id number] 0 01/11 CMP Album in g/dL 3.5 5.0 4.3 FINAL [facility] ([facility], [address] [place] [id number] 0 01/11 CMP Bilir ubin, total mg/dL 0.0 1.0 0.2 FINAL [facility], [address] [place] [id number] 0 01/11 CMP Sodiu m mmol/L 135.0 145.0 141 FINAL Anny Kamara [facility], [address] [place] [id number] 0 01/11 CMP Potas sium mmol/L 3.5 5.0 4.2 FINAL Anny [facility], [address] [place] [id number] 0 Medications Date Name Route Dose Frequency Instructions Start Date End Date Status Fill Status Indication 12/22 Dextroa mphetam ine Oral orally 20.0 mg 2 times per day administer doses at least 4-6 hours apart active 11/10 Levothy roxine Oral orally 1.0 capsul e daily quantity sufficient for 30 days; 3 refills active 12/22 Lisdexa mfetami ne Oral orally 1.0 capsul e every morning quantity sufficient for 30 days; 0 refills active 12/22 Azathio calderon Oral orally 50.0 mg daily inactive 12/22 Tamoxif en Oral orally 20.0 mg daily inactive 12/22 Guanfac ine Oral orally 1.0 tablet every day at bedtime active 12/22 Levothy roxine Oral orally 1.0 tablet daily quantity sufficient for 30 days; 3 refills inactive 12/22 Etonoge strel-E thinyl Estradi ol Vaginal Ring 0.12 mg-0.01 5 mg/24 hr inactive 12/22 Tramado l Oral orally 1.0 tablet every 12 hours prn pain; quantity sufficient for 30 days; 0 refills inactive 12/23 Hydroxy chloroq uine Oral 2.0 tablet daily inactive 12/22 Prednis one Oral orally 1.0 tablet daily quantity sufficient for 30 days; 2 refills inactive 12/22 Nifedip ine Oral ER Tab orally 30.0 mg daily inactive 12/22 Sertral ine Oral orally 100.0 mg daily inactive 01/11 Amlodip ine Oral orally 10.0 mg daily active Problems Diagnosis Status Date of Diagnosis Resolution Date History of thyroid cancer Active Breast cancer, female Active 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 Procedures Date Category Name Instructions Status 12/01/2024 Physician Order RTC MD OV labs Ordered 07/13/2025 Physician Order RTC MD OV labs Ordered Social History Date Name Value 01/11/2025 Smoking Status Former smoker 11/10/2022 Sex Female Vital Signs Date Type Value 01/11/2025 Body Temperature 97.00 01/11/2025 Heart Beat 95.00 01/11/2025 Respiratory Rate 16.00 01/11/2025 Oxygen Saturation 98.00 01/11/2025 BSA 2.01 01/11/2025 Pain Scale 3.00 01/11/2025 Weight 196.00 01/11/2025 Height 67.20 01/11/2025 BMI 30.52 01/11/2025 Intravascular Systolic 140 01/11/2025 Intravascular Diastolic 88 Notes Section * Med Onc Follow Up Note (Long Version) <html><head></head><body><div style= text-align:center ><span class= clinicalNoteMacroWysiwyg id= [id number] macroname=&quo t;PracticeLetterhead spantype= macro title= #PracticeLetterhead ><img height= 128 src= [email or web address]?[email or web address]=[id number] width= 520 ></span>

</div><div><strong>Patient Name:</strong> <span class= clinicalNoteMacroWysiwyg id= [id number] macroname= PatientName spantype= macro title= #PatientName >SUSY COSBY</span> <strong>:</strong> <span class=&q uot;clinicalNoteMacroWysiwyg id= [id number] macroname= PatientDate OfBirth spantype= macro title= #PatientDateOfBirth >1985</spa n>
<strong>Date of Visit:</strong> <span class= clinicalNoteMacroWysiwyg id= [id number] macroname= EffectiveDate spantype="macro title= #EffectiveDate >01/11/2025</span>
<strong>Referring Provider:</strong> <span class= clinicalNoteManbaoWysiwyg id= [id number] macroname= ReferringPhysician spantype= macro title=&quo t;#ReferringPhysician >Tenzin Alfonso MD (Rheumatology)</span>
<strong >Attending:</strong> <span class= clinicalNotTitacroWysiwyg id= [id number] macroname= AttendingPhysician spantype= macro title=&quot ;#AttendingPhysician >Anny Kamara (Medical Oncology)</span>
<span st yle= color:null >
<span class= clinicalNoteSectionVisible id=&qu ot;[id number] internalbreaksection= false originalname= Chief Co mplaint recognizeconcepts= true spantype= section suppressempty= false >Chief Complaint</span>
Lymphadenopathy
Anemia

<span class= clinicalNoteSectionVisible id= [id number] int ernalbreaksection= false originalname= HPI recognizeconcepts= true spantype= section suppressempty= false >History of Present Illness</span& gt;
Susy Cosby is a 37 referred for persistent lymphadenopathy and constitutional symptoms with prior history of Castleman's disease, medullary thyroid cancer with MEN2A syndrome, and breast cancer:

?Castleman's disease:
<ul> <li>1990s biopsy - Castleman's disease, CXR showed <span style= color:null >CXR with mediastinal lymphadenopathy</span></li> <li>Castleman Disease, s/p lymph node biopsy and lymphadenectomy 1993 and 1994 with atypical reactive lymphoid hyperplasia </li> <li><span style= color:null >In December 2021 she presented with adan and after myalgia concerning for possible autoimmune condition. She&nbsp ;had diagnosis of dermatomyositis, however she feels that she does not meet theseclassical symptoms. Over the course of 2021 to early 2022 she has undergone multiple lines of immunosuppression to improve her symptoms of joint pain, neuropathy, and myositis. </span>
</li> <li>11/04/2022 WBC 8.4 monos 1100 immature grans 160 Hb 14.2 MCV 93.5 platelet 343k
</li> <li><span style= color:null >She underwent IVIG in November 2022 but she feels this has made many of her symptoms significantly worse. She also reports that she had increasing cervical lymphadenopathy prior to IVIG; this lymphadenopathy is significantly improved for 1-2 weeks at which time her PET scan was performed. </span>
</li> <li>12/08/[address] focal right maxilla uptake upper molar tooth root, right level IB node mild avidity likely reactive to periodontal disease, no uptake in thyroidectomy bed, non-avid subcentimeter pulmonary nodules</li></ul>Breast cancer:<ul> <li><span style= color:null > lumpectomy with negative lymph nodes and RT 2018, on tamoxifen </span></li></ul>Thyroid cancer:<ul> <li><span style= color:null >Medullary thyroid cancer s/p total thyroidectomy 2 012</span>
</li></ul>
Muscle pain/weakness and rash:
<span style= color:null ><ul> <li>12/2021 rash, erythromelalgia with positive JOSEPH</li> <li><span style= color:null >Prednisone taper for 1 week in 05/2022, then again end 08/2022-10/2022 (d/c 10/2022 due to ineffectiveness)</span>
</li> <li><span style= color:null ><span style= color:null >08/10/22-11/16/22 p</span>laquenil (d/c 2 bloating)</span>
</li> <li>09/2022 who reported Gottron's patches/papules, ragged cuticles, shawl sign, V-neck erythema per notes. She had skin biopsy as well</li> <li><span style= color:null >09/2022- 10/2022 </span>azathioprine <span style= color:null >d/c due to facial swelling, bloating, joint swelling</span>
</li> <li>09/2022 dermatomyositis hydroxychloroquine, azathioprine then started IVIG in agreement with [facility] myositis [facility]; she feels that her symptoms significantly worsened after starting IVIG
</li> <li>11/25/2022 IVIG present
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 An additional biopsy for H&E and a biopsy from perilesional skin for direct immunofluorescence is recommended to further evaluate this patient. Given the eosinophils, lupus is not favored. There is no evidence of lichen planus.</li> </ul> & lt;/li></ul></span><strong>Interval history:</strong>
Susy presents with her fiance for follow-up.
Since LCV she developed a blistering rash on her chest which was biopsied on 01/02. She has yet to have follow-up with Dermatology regarding these results. No new large blisters currently but still having smaller and healing skin sites.
She has not been on steroids since Sep 2023.
She continues to have symptoms including dyspnea, fatigue, tremors and overall malaise.

<span cl ass= clinicalNoteSectionVisible id= [id number] internalbreaksec tion= false originalname= Past Medical History recognizeconcepts= true" spantype= section suppressempty= false >Past Medical History</span&gt ;
Inflammatory arthritis
CADM - azathioprine, prednisone 10mg
MEN type 2A
Castleman's disease
Depression/anxiety
Breast cancer s/p lumpectomy with negative lymph nodes and RT 2018, on tamoxifen
Medullary thyroid cancer s/ptotal thyroidectomy 2011

<span class= clinicalNoteSectionVisible id= [id number] internalbreaksection= false originalname= Past Surgical History recognizeconcepts= true spantype= section suppressempty= true >Past Surgical History</span>
Lymphadenectomy as above

<span class= clinicalNoteSectionVisible id= [id number]" internalbreaksection= false originalname= Family History recognizeconcepts = true spantype= section suppressempty= false >Family History</span>
<span style= font-size:12px ><span style= font-family:Bogota,Helvetica,sans- serif >
Family history unknown (adopted or unavailable)</span& gt;</span>

<span class= clinicalNoteSectionVisible id= s [id number] internalbreaksection= false originalname= Social Histor y recognizeconcepts= true spantype= section suppressempty= false">Social History</span>
<span style= font-size:12px ><span st yle= font-family:Bogota,Helvetica,sans-serif >Tobacco:
EtOH:
Other:&lt ;br>Work/activities:
Living:</span></span>

<span class = clinicalNoteSectionVisible id= [id number] internalbreaksectio n= false originalname= Review of Systems recognizeconcepts= true sp antype= section suppressempty= false >Review of Systems</span>
A complete 10-point review of systems is negative except as noted in the above history of present illness

<span class= clinicalNoteSectionVisible id= s [id number] internalbreaksection= false originalname= Medications& quot; recognizeconcepts= true spantype= section suppressempty= false&quot ;>Medications</span>
<span class= clinicalNoteMacroWysiwyg id= [id number] macroname= CurrentMedications parameters= ValueIfNull :None spantype= macro title= #CurrentMedications(ValueIfNull:None) >De xtroamphetamine Oral 20 mg orally 2 times per day administer doses at least 4-6 hours apart, Guanfacine Oral 2 mg tablet 1 tablet orally every day at bedtime, Tirosint (Levothyroxine Oral) 175 mcg capsule 1 capsule orally daily quantity sufficient for 30 days; 3 refills, Vyvanse (Lisdexamfetamine Oral) 70 mg capsule 1 capsule orally every morning quantity sufficient for 30 days; 0 refills</span >

<span class= clinicalNoteSectionVisible id= [id number] internalbreaksection= false originalname= Allergies recognizeconcepts= true spantype= section suppressempty= false >Allergies</span>
<span class= clinicalNoteMacroWysiwyg id= [id number] macroname= Allergies parameters= ListType:Bulleted,ValueIfNull:NKDA" spantype= macro title= #Allergies(ListType:Bulleted,ValueIfNull:NKDA) ><ul> <li>adhesive</li> <li>levothyroxine</li> <li>morphine</li ></ul></span>

<span class= clinicalNoteSectionVisible" id= [id number] internalbreaksection= false originalname= Vital Signs recognizeconcepts= true spantype= section suppressempty=&quo t;false >Vital Signs</span>
<span class= clinicalNoteMacroWysiwyg" id= [id number] macroname= PatientVitalSigns parameters= L ookBackDays:0 spantype= macro title= #PatientVitalSigns(LookBackDays:0) & gt;Blood pressure: , Pulse: , Temperature: , Respirations: , O2 sat: , Pain Scale: , Height: , Weight: , BSA: , BMI: </span>

<span class= clinicalNoteSectionVisible" id= [id number] internalbreaksection= false originalname="Physical Exam recognizeconcepts= true spantype= section suppressempty= false >Physical Exam</span>
<span style= font-size:12px ><span style= font-family:Bogota,Helvetica,sans-serif >General: No acute distress, well nourished, sitting in chair
HEENT: Normocephalic/at raumatic, sclera/conjunctiva nonicteric/noninjected, EOMI, O P clear
Pulmonary: No increased work of breathing on room air, clear to auscultation bilateral lung patten, without wheezes/rhonchi/crackles
Cardiac: Regular rate and rhythm, no murmurs, rubs, gal lops
Abdomen: Nondistended/nontender to palpation, no appreciable hepatosplenomegaly, normal bowel sounds, no rebound or guarding
Skin: No ecchymoses, petechiae, rash, excoriations
Neuro: Alert, awake and interactive. CNII- XII grossly intact, no gross motor/strength deficits, normal gait
Access/drains/catheters: Not applicable </span>< /span>

<span class= clinicalNoteSectionVisible id= section_ [id number] internalbreaksection= false originalname= Laboratory Data&quo t; recognizeconcepts= true spantype= section suppressempty= false &g t;Laboratory Data</span>
<span class= clinicalNoteMacroWysiwyg id=&quot ;[id number] macroname= RecentLabResultsTable parameters= OptionalF lowsheetCategory:CBC,Label:CBC spantype= macro title= #RecentLabResultsTable(O ptionalFlowsheetCategory:CBC,Label:CBC) >CBC<table border= 1 style= width :100% > <tbody> <tr> <th align= left >Lab Results</th> <td>01/11/2025</td> <td>06/01/2024</td> <td>04/15/2024</td> <td>11/10/2023</td> <td>02/26/2023</td> <td>02/25/2023</td> </tr> <tr> <th align= left > CBC</th> <td>
</td> <td>
</td> <td>
</td> <td>
</td> <td>
</td> <td>
</td> </tr> <tr> <td> WBC x 10^3/uL</td> <td>5.8</td> <td>6.3</td> <td>
</td> <td>6.3</td> <td>
</td> <td>
</td> </tr> <tr> <td> RBC x 10^6/uL</td> <td>4.68</td> <td>4.03</td> <td>
</td> <td>3.71 (L)</td> <td>
</td> <td>
</td> </tr> <tr> <td> NRBC, absolute, x 10^3/uL</td> <td>0.00</td> <td>0.00</td> <td>
</td> <td>0.00</td> <td>
</td> <td>
</td> </tr> <tr> <td> NRBC, %</td> <td>0.0</td> <td>0.0</td> <td>
</td> <td>0.0</td> <td>
</td> <td>
</td> </tr> <tr> <td> HGB g/dL</td> <td>13.9</td> <td>12.6</td> <td>
</td> <td>11.5</td> <td>
</td> <td>
</td> </tr> <tr> <td> & nbsp; HCT %</td> <td>42.3</td> <td>37.9</td> <td>
</td> <td>35.2</td> <td>
</td> <td>
</td> </tr> <tr> <td> MCV fL</td> <td>90.4</td> <td>94.0</td> <td>
</td> <td>94.9</td> <td>
</td> <td>
</td> </tr> <tr> <td> MCH pg</td> <td>29.7</td> <td>31.3</td> <td>
</td> <td>31.0</td> <td>
</td> <td>
</td> </tr> <tr> <td> &a mp;nbsp; MCHC g/dL</td> <td>32.9</td> <td>33.2</td> <td>
</td> <td>32.7</td> <td>
</td> <td>
</td> </tr> <tr> <td> RDW %</td> <td>12.7</td> <td>13.2</td> <td>
</td> <td>12.2</td> <td>
</td> <td>
</td> </tr> <tr> <td> PLT x 10^3/uL</td> <td>306</td> <td>301</td> <td>
</td> <td>218</td><td>
</td> <td>
</td> </tr> <tr> <td>& amp;nbsp; MPV fL</td> <td>10.9</td> <td>10.9</td> <td>
</td> <td>11.2</td> <td>
</td> <td>
</td> </tr> <tr> <td> Abhilash %</td> <td>52.2</td> <td>55.1</td> <td>
</td> <td>58.3</td> <td>
</td> <td>
</td> </tr> <tr> <td> LY %</td> <td>32.9</td> <td>28.5</td> <td>
</td> <td>25.1</td> <td>
</td> <td>
</td> </tr> <tr> <td&gt ; MO %</td> <td>9.6</td> <td>8.3</td> <td>
</td> <td>12.8 (H)</td> <td>
</td> <td>
</td> </tr> <tr> <td> EO %</td> <td>4.3</td> <td>7.0</td> <td>
< /td> <td>3.0</td> <td>
</td> <td>
</td> </tr> <tr> <td> IG %</td> <td>0.50</td> <td>0.50</td> <td>
</td> <td>0.30</td> <td>
</td> <td>
</td> </tr> <tr> <td>&a mp;nbsp; Abhilash # (ANC) x 10^3/uL</td> <td>3.0</td> <td>3.4</td> <td>
</td> <td>3.7</td> <td>
</td> <td>
</td> </tr> <tr> <td> BA %</td> <td>0.5</td> <td>0.6</td> <td>
</td> <td>0.5</td> <td>
</td> <td>
</td> </tr> <tr> <td> MO # x 10^3/uL</td> <td>0.6</td> <td>0.5</td> <td>
</td> <td>0.8</td> <td>
</td> <td>
</td> </tr> <tr> <td> EO # x 10^3/uL</td> <td>0.3</td> <td>0.4 (H)</td> <td>
</td> <td>0.2</td> <td>
</td> <td>
</td> </tr> <tr> <td>&nbs p; BA # x 10^3/uL</td> <td>0.0</td> <td>0.0</td> <td>
</td> <td>0.0</td> <td>
</td> <td>
</td> </tr> <tr> <td> & nbsp;IG # x 10^3/uL</td> <td>0.03</td> <td>0.03</td> <td>
</td> <td>0.02</td> <td>
</td> <td>
</td> </tr> <tr> <td> LY # x 10^3/uL</td> <td>1.9</td> <td>1.8</td> <td>
</td> <td>1.6</td> <td>
</td> <td>
</td> </tr> </tb shamika></table></span>
<span class= clinicalNoteMacroWysiwyg id=& quot;[id number] macroname= RecentLabResultsTable parameters= Optio nalFlowsheetCategory:Chemistries,Label:CMP spantype= macro title= #RecentLabRe sultsTable(OptionalFlowsheetCategory:Chemistries,Label:CMP) >CMP<table border= 1" style= width:100% > <tbody> <tr> <th align= left >Lab Re sults</th> <td>01/11/2025</td> <td>06/01/2024</td> <td>04/15/2024</td> <td>11/10/2023</td> <td>02/26/2023</td> <td>02/25/2023</td> </tr> <tr> <th align= left > Chemistries</th> <td>
</td> <td>
</td> <td>
</td> <td>
</td> <td>
</td> <td>
</td> </tr> <tr> <td> Glucose mg/dL</td> <td>
</td> <td>110</td> <td>
</td> <td>90</td> <td>
</td> <td>
</td> </tr> <tr> <td> BUN mg/dL</td> <td>
</td> <td>12</td> <td>
</td> <td>8</td> <td>
</td> <td>
</td> </tr> <tr> <td>&nbsp ; Creatinine mg/dL</td> <td>
</td> <td>0.9</td> <td>
</td> <td>0.9</td> <td>
</td> <td>
</td> </tr> <tr> <td> &n bsp; Sodium mmol/L</td> <td>
</td> <td>139</td> <td>
</td> <td>139</td> <td>
</td> <td>
</td> </tr> <tr> <td> Potassium mmol/L</td> <td>
</td> <td>4.0</td> <td>
</td> <td>3.2 (L)</td> <td>
</td> <td>
</td> </tr> <tr> <td> Chloride mmol/L</td> <td>
</td> <td>104</td> <td>
</td> <td>103</td> <td>
</td> <td>
</td> </tr> <tr> <td> CO2 mmol/L</td> <td>
</td> <td>23</td> <td>
</td> <td>24</td> <td>
</td> <td>
</td> </tr> <tr> <td>&a mp;nbsp; Calcium mg/dL</td> <td>
</td> <td>9.6</td> <td>
</td> <td>9.7</td> <td>
</td> <td>
</td> </tr> <tr> <td> Albumin g/dL</td> <td>
</td> <td>4.0</td> <td>
</td> <td>3.8</td> <td>
</td> <td>
</td> </tr> <tr> <td> Total protein g/dL</td> <td>
</td> <td>6.6</td> <td>
</td> <td>6.3 (L)</td> <td>
</td> <td>
</td> </tr> <tr> <td> Globulin g/dL</td> <td>
</td> <td>2.6</td> <td>
</td> <td>2.5</td> <td>
</td> <td>
</td> </tr> <tr> <td> Bilirubin, total mg/dL</td> <td>
</td> <td>0.2</td> <td>
</td> <td>0.3</td> <td>
</td> <td>
</td> </tr> <tr> <td> Alkaline phosphatase U/L</td> <td>
</td> <td>140 (H)</td> <td>
</td> <td>74</td> <td>
</td> <td>
</td> </tr> <tr><td> AST/SGOT U/L</td> <td>
</td> <td>28</td> <td>
</td> <td>39</td> <td>
</td> <td>
</td> </tr> <tr> <td> ALT/SGPT U/L</td> <td>
</td> <td>20&l t;/td> <td>
</td> <td>27</td> <td>
</td><td>
</td> </tr> <tr> <td> LDH U/L</td> <td>
</td> <td>
</td> <td>
</td> <td>202</td> <td>
</td> <td>
</td> </tr> <tr> <td> GFR estimate mL/min/1.73m2</td> <td>
</td> <td>>60</td> <td>
</td> <td>>60</td> <td>
</td> <td>
</td> </tr> <tr> <td> C-reactive protein, quant, mg/L</td> <td>
</td> <td>
</td> <td>
</td> <td>10.6 (H)</td> <td>
</td> <td>
</td> </tr> <tr> <td> Viscosity, serum, rel to H20</td> <td>
</td> <td>
</td> <td>
</td> <td>1.6</td> <td>
</td> <td>
</td> </tr> </tbody></table></span>
<span class= clinicalNotAvita Health System Galion HospitalcroWysiwyg id= [id number] macroname=& quot;RecentLabResultsTable parameters= OptionalFlowsheetCategory:Tumor Markers,Label:Tumor Markers spantype= macro title= #RecentLabResultsTable(OptionalFlowsheetCategory:Tumor Markers,Label:Tumor Markers) >Tumor Markers<table border= 1 style=&q uot;width:100% > <tbody> <tr> <th align= left >Lab Results</th> <td>01/11/2025</td> <td>06/01/2024</td> <td>04/15/2024</td> <td>11/10/2023</td> <td>02/26/2023</td> <td>02/25/2023</td> </tr> <tr> <th align= left > Tumor Markers</th> <td>
</td> <td>
</td> <td>
</td> <td>
</td> <td>
</td> <td>
</td> </tr> </tbody></table></span>
<span class= clinicalNoteMacroWysiwyg id= [id number] macroname= RecentLabResultsTable cuca eters= OptionalFlowsheetCategory:Anemia Labs,Label:Miscellaneous spantype= macro" title= #RecentLabResultsTable(OptionalFlowsheetCategory:Anemia Labs,Label:Miscellaneous)">Miscellaneous<table border= 1 style= width:100% > <tbody> <tr> <th align= left >Lab Results</th> <td>01/11/2025</td> <td>06/01/2024</td> <td>04/15/2024</td> <td>11/10/2023</td> <td>02/26/2023</td> <td>02/25/2023</td> </tr> <tr> <th align= le ft > Anemia Labs</th> <td>
</td> <td>
</td> <td>
</td> <td>
</td> <td>
</td> <td>
</td> </tr> </tbody></table></sp an>
<span class= clinicalNoteMacroWysiwyg id= [id number]" macroname= RecentLabResultsTable parameters= OptionalFlowsheetCategory:Jose JL markus:Coagulation spantype= macro title= #RecentLabResultsTable(OptionalFlowshe etCategory:Coamargarita,Label:Coagulation) >Coagulation<table border= 1 style= w idth:100% > <tbody> <tr> <th align= left >Lab Results</th> <td>01/11/2025</td> <td>06/01/2024</td> <td>04/15/2024</td> <td>11/10/2023</td> <td>02/26/2023</td> <td>02/25/2023</td> </tr> <tr> <th align= left > Coags</th> <td>
</td> <td>
</td> <td>
</td> <td>
</td> <td>
</td> <td>
</td> </tr> <tr> <td> Cryoglobulin, qual</td> <td>
</td> <td>
</td> <td>
</td> <td>NEGATIVE</td> <td>
</td> <td>
</td> </tr> </ tbody></table></span>
<span class= clinicalNoteMacroWysiwyg id = [id number] macroname= RecentLabResultsTable parameters= Opt ionalFlowsheetCategory:Immunohematology,Label:Immunohematology spantype= macro titl e= #RecentLabResultsTable(OptionalFlowsheetCategory:Immunohematology,Label:Immun ohematology)">Immunohematology<table border= 1 style= width:100% > <tbody> <tr> <th align= left >Lab Results</th> <td>01/11/2025</td><td>06/01/2024</td> <td>04/15/2024</td> <td>11/10/2023</td> <td>02/26/2023</td> <td>02/25/2023</td> </tr> <tr> <th align="left > Immunohematology</th> <td>
</td> <td>
</td> <td>
</td> <td>
</td> <td>
</td> <td>
</td> </tr> </tbody></table></span>

<span class= clinicalNoteSectionVisible id= [id number] internalbreaksection= false originalname= Pathology" recognizeconcepts= true spantype= section suppressempty= true &gt ;Pathology</span>
as above

<span class= clinicalNoteSectionVisible id= [id number] internalbreaksection= false origin alname= Imaging recognizeconcepts= true spantype= section suppresse mpty= true >Imaging</span>
as above

<span class=&q uot;clinicalNoteSectionVisible id= [id number] internalbreaksection="false originalname= Assessment & Plan recognizeconcepts= true" spantype= section suppressempty= false >Assessment & Plan</span>
1. 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
2. Medullary thyroid cancer s/p total thyroidectomy, diagnosis of MEN2A syndrome - fo llowed by Endocrinology at [facility]
3. Breast cancer s/p lumpectomy of adjuvant radiation and hormonal therapy 2018 - followed at [facility]
4. Myositis, neuropathy, rash and positive JOSEPH concerning for autoimmune process

Susy Sona is a 37-year-old referred for her Castleman's disease. She also has prior history of breast cancer and thyroid cancer for mein 2 syndrome; she reports that these conditions are being appropriately followed up in surveillance by her oncology team at [facility]. She has had multi ple different care teams including on the [facility]. Recent PET/CT, CT neck and CT CAP from December to January 2023 show no significant lymphadenopathy or objective evidence of organomegaly. CBC shows no irregularities except for neutrophilic predominance expected on recent high dose steroids. Inflammatory markers are negative. On exam, she has no discrete cervical or axillary lymphadenopathy although she does report tenderness palpation in these areas on exam. No hepatosplenomegaly on exam. Skin shows mildmottle discoloration more prominent in toes.

<span style= color:null"><span style= color:null >She reports diagnosis with Castleman's from a very young age and underwent lymphadenectomy in the mid 90s. </span></span>Treatment teams have previously discussed developments in understanding Castleman's disease since including unicentric versus multicentric. We reviewed overlap between immune system dysregulation e.g. autoimmune conditions, and lymphoproliferative conditions like Castleman's. Her current symptoms are nonspecific, and may be indicative of constitutional and/or an autoimmune spectrum condition including dermatomyositis, lupus etc. We discussed that unicentric Castleman's disease less commonly presents with systemic symptoms. She has undergone appropriate treatment for unicentric Castleman's disease. There is no current evidence of multifocal Castleman's (although she does report a diagnosis of this while living on the [facility]). I will order CT neck and chest now, and if prominent lymphadenopathy we will plan for excisional lymph node to definitively rule out involvement by Castleman's. She has had a recent rash, it is not the classic <span style= color:null >cutaneous lichens amyloidosis.</span>

I previously ordered labs including HHV-8 and VEGF to evaluate for POEMS and other<span style= color:null > lymphoma/plasma cell dyscrasia which were not elevated. I do not dispute her current symptoms, but I have not yet found clinical exam, radiographic or serologic evidence specific to Castleman's. I agree with her that a Gwynltigor's flare does not need to meet all of these criteria, but there must some objective evidence. [facility], she meets only one major criteria (history of histopathologic lymph node at age 5 but none since) and 2 minor clinical criteria of constitutional symptoms (fatigue, fluid accumulation). Onset at age 5 is atypical for Castleman's. Her prior fluid accumulation and sensationof fullness around neck/face may in fact be related to steroids.

It isvery possible that she has underlying systemic inflammatory condition with symptoms response to steroids, but it is not clear to me that is in fact Castlemans. It is also possible that she has an unusual case of an already rare condition in which case referral to a high volume center for Castleman's is indicated. She has a teleheatlh appointment with the Castleman's specialty team at the [facility] - I will follow-up on their recommendations. I have also asked her to let me know how much steroids she has left from what was prescribed by the ED. We discussed risks of long-term steroids including weight gain, diabetes, bone health and infection including PJP.She was evaluated by [facility] inpatient team with no confirmation of Castleman's diagnosis. I will obtain these records.</span>

As she already has an oncology team at [facility] following for her history of breast cancer and medullary thyroid cancer, I will be assisting Susy's care via monitoring and assessment of her anemia. We discussed that her anemia may be multifactorial including intermittent hydroxychloroquine, anemia of inflammation. It is difficult to parse out the use contributors given changes in medications over the last several months. I note that her previous monocytosis detected on labs at [facility] for the last several months have significantly improved to 12.8% with normal absolute monocytes on CBC today. During her initial visits, I had also recommended other labs including cryoglobulin screen and serum viscosity which is negative. I note that her JOSEPH has been significantly positive at 1:1280 with elevated CRP - she was told by [facility] Rheumatology team that it will remainpositive for a while after IVIG. Her immunoglobulin levels show mild IgA deficiency; while severe IgA deficiency may increase chance of allergic reaction to blood product transfusion, with for very mild decrease in IgA I do not anticipate this to be a problem.

<span style= color:null >She has a blistering skin rash - 01/02 biopsy tissue will be sent for AYESHA given non-specific findings so far with differential including drug related rash and autoimmune etiologies. Note some eosinophils detected in skin biopsy. No elevation in peripheral blood absolute eosinophils today to suggest a clonal, systemic hypereosinophilia syndrome. No issures with recurrent or persistent infections to suggest hyper- IgE syndrome. I also reviewed her recent labs at [facility] with faint M spike detected. This does not have independent clinical significance.</span>

<span style=&quot ;color:null >Today;
- Reviewed [facility] labs, today's CBC, skin biopsy pathology report
- RTC 6m </span>for anemia monitoring; I remain av ailable for any hematology questions that may arise during evaluation and treatment of her complex case.

40 minutes was spent in the care of this patient today including review of records and labs and chart preparation, [id number] time and/or care coordination.

<span class= clinicalNoteSectionVisible id= [id number]" internalbreaksection= false originalname= Plan for Pain recognizeconcept s= true spantype= section suppressempty= false >Plan for Pain</span>
( ) No pain reported
( ) Use of Opioids
( ) Non-opioid analgesics or techniques
(x ) Non-pharmacologic interventions (relaxation techniques, use of heat/cold)
( ) Driving prohibitions discussed
( ) Opioid agreement signed
( ) PDMP reviewed
( ) Patient and/or family education
( ) Psychological Support
( ) Radiation treatment
( ) Reassessment of pain at an appropriate time interval
( ) Referral to a pain clinic
( ) Referral to other provider
( ) Urine drug screen order provided and discussed
( ) Other

<span class= clinicalNoteMacroWysiwyg id= [id number] macroname= MyName spantype= macro title= #MyName >Anny Kamara MD</span>

cc: <span class= clinicalNoteMacroWysiwyg id= [id number]" macroname= NoteRecipients spantype= macro title= #NoteRecipients >Tenzin Alfonso MD (Referring)
Sia Guajardo MD (PMG)</span></span>< br>
</div>

<div><span class= eSignSignature >Electronically signed by Anny Kamara MD 01/16/2025 09:13 PDT</span></div></body></html>
--- OUTSIDE RECORDS SUMMARY | 2025-07-30 22:31 | XMS_ITS | Clinical Summary ---
Author Organization [facility] Address [address] [place] [address] Care Team Providers Care Cdl Program Coordinator Name Role Phone Truman Hunt MD Primary Care Provider [phone] Allergies Active Allergy Reactions Criticality Noted Date Comments Levothyroxine Nausea And Vomiting,Hives Medium 02/19/2022 No reaction to brand name Synthroid. No reaction to brand name Synthroid. Morphine Other (See Comments) Medium 11/19/2019 Other reaction(s): Seizures, Unknown Seizures. Not sure if it was coincidental as she was passing a kidney stone at that time. She tolerates other opioids. Hydrocodone causes nausea. Oxycodone seems to be fine. Seizures. Not sure if it was coincidental as she was passing a kidney stone at that time. She tolerates other opioids. Hydrocodone causes nausea. Oxycodone seems to be fine. Morpholine Salicylate Other (See Comments) Low 02/14/2016 Other reaction(s): Unknown seizures seizures seizures seizures Medications acetaminophen (TYLENOL) 500 MG tablet Take 1,000 mg by mouth 01/17/2023 Active amphetamine-dex troamphetamine (ADDERALL) 10 MG tablet 02/16/2023 Active clindamycin (CLEOCIN T) 1 % lotion Apply twice daily to the legs.. 09/02/2022 Active clobetasol (TEMOVATE) 0.05 % external solution Apply twice daily to the rash on scalp. Stop when rash is resolved to prevent skin atrophy and other side effects. Restart if/when rash recurs.. 09/16/2022 Active duloxetine (CYMBALTA) 60 MG capsule 02/14/2023 Active fluocinonide (LIDEX) 0.05 % ointment Apply twice daily to the rash on hands and feet. Avoid face, groin, skin folds. Stop when rash is resolved to prevent skin atrophy and other side effects. Restart if/when rash recurs.. 09/20/2022 Active guanfacine (TENEX) 2 MG tablet Take 2 mg by mouth 02/03/2023 Active ketoconazole (NIZORAL) 2 % cream 02/17/2023 Active SYNTHROID 125 MCG tablet 01/20/2023 Active Lifitegrast (XIIDRA) 5 % SOLN 09/25/2022 Active VYVANSE 70 MG capsule 02/14/2023 Active lorazepam (ATIVAN) 0.5 MG tablet take 1/2 tablet by mouth twice daily as needed for anxiety 09/02/2022 Active NIFEdipine (PROCARDIA XL) 30 MG 24 hr tablet Take 30 mg by mouth 11/26/2022 Active predniSONE (DELTASONE) 10 MG tablet 09/02/2022 Active tacrolimus (PROTOPIC) 0.1 % ointment 02/17/2023 Active Active Problems No known active problems Social History Tobacco Use Types Packs/Day Years Used Date Smoking Tobacco: Never Smokeless Tobacco: Never Comments Unknown Sex and Gender Information Value Date Recorded Sex Assigned at Not on file Legal Sex Female 8:44 AM PDT Gender Identity Not on file Sexual Orientation Not on file Last Filed Vital Signs Vital Sign Reading Time Taken Comments Blood Pressure 130/88 02/24/2023 12:10 PM PDT Pulse - - Temperature 36.2 C (97.2 F) 02/24/2023 12:10 PM PDT Respiratory Rate - - Oxygen Saturation - - Inhaled Oxygen Concentration - - Weight 106.6 kg (235 lb) 02/24/2023 12:10 PM PDT Height 162.6 cm (5' 4 ) 02/24/2023 12:10 PM PDT Body Mass Index 40.34 02/24/2023 12:10 PM PDT Plan of Treatment Health Maintenance Due Date Last Done Comments REALD Questions 1987 HIV Screening 2005 DTAP/TDAP/TD Vaccines (1 - Tdap) 2006 Annual Risk Level Review 02/24/2023 Cervical Cancer Screening 03/16/20252021, 10/19/2019 COVID-19 Vaccine (3 - 2024-2 6 season) 2025 02/17/2021, 01/27/2021 Influenza Vaccine (#1) 2025 09/11/2015 Pneumococcal Vaccine 0-50 Aged Out 11/19/2019 No longer eligible based on patient's age to complete this topic Hepatitis C Screening Completed 09/02/2022 , 09/02/2022 Insurance [facility] Care Teams Cdl Program Coordinator Relationship Specialty Start Date End Date Truman Hunt MD [address] [facility] [address] [place], [place] [id number] PCP - General Internal Medicine 01/18/23 Additional Source Comments Chart notes may be sent separately from this document.[facility]
--- OUTSIDE RECORDS SUMMARY | 2025-07-30 22:31 | XMS_ITS | Encounter Summary ---
Author Organization [facility] Address [address] [place] [address] Phone Care Team Providers Care Bundling Machine Operator Name Role Phone RgDeborah granados Gilma VALENTINE Primary Care Provider [phone] Aleja Price DNP, COATING AND BAKING OPERATOR-C Unavailable Casandra Murphy MD, [facility] Primary Care Provider [phone] Encounter Details Date Type Department Care Team (Late st Contact Info) Description 03/09/2023 Transcribe Orders [facility] at [facility] [address] [address] Transcribe Encounter, Provider, [address] [place] [address] Social History Tobacco Use Types Packs/Day Years [...] documented as of this encounter Results * EGD (03/24/2023 9:26 AM PDT) Anatomical Region Laterality Modality Other 03/24/2023 9:26 AM PDT Narrative 03/24/2023 9:26 AM PDT Procedure Date: 03/24/2023 Patient Name: Astrid Magallanes Order #: [id number] Date of : 1985 CSN: [id number] Admit Type: Outpatient Room: GI 1 Procedure: Upper GI endoscopy Indications: Nausea Providers: RADHA CASAS MD (Doctor), REVA DOLAN RN (Nurse), SHAWN ROLAND, Cabin Cleaning Supervisor (Cabin Cleaning Supervisor) Referring MD: ALEJA TAN DNP,COATING AND BAKING OPERATOR-C Requesting Provider: Medicines: Fentanyl 125 micrograms IV, Midazolam 5 mg IV Complications: No immediate complications. Procedure: Pre-Anesthesia Assessment: - Prior to the procedure, a History and Physical was performed, and patient medications and allergies were reviewed. The patient is competent. The risks and benefits of the procedure and the sedation options and risks were discussed with the patient. All questions were answered and informed consent was obtained. Patient identification and proposed procedure were verified by the physician in the pre-procedure area. Mental Status Examination: alert and oriented. Airway Examination: normal oropharyngeal airway and neck mobility. Respiratory Examination: clear to auscultation. CV Examination: normal. Prophylactic Antibiotics: The patient does not require prophylactic antibiotics. Prior Anticoagulants: The patient has taken no anticoagulant or antiplatelet agents. ASA Grade Assessment: II - A patient with mild systemic disease. After reviewing the risks and benefits, the patient was deemed in satisfactory condition to undergo the procedure. The anesthesia plan was to use moderate sedation / analgesia (conscious sedation). Immediately prior to administration of medications, the patient was re-assessed for adequacy to receive sedatives. The heart rate, respiratory rate, oxygen saturations, blood pressure, adequacy of pulmonary ventilation, and response to care were monitored throughout the procedure. The physical status of the patient was re-assessed after the procedure. Prior to the procedure, a History and [...] was re-assessed after the procedure. The Olympus [id number] Endoscope #[id number] was introduced through the mouth, and advanced to the second part of duodenum. The upper GI endoscopy was accomplished without difficulty. The patient tolerated the procedure well. Estimated Blood Loss: Estimated blood loss: none. Findings: The esophagus was normal. The stomach was normal. Biopsies were taken with a cold forceps for Helicobacter pylori testing. Verification of patient identification for the specimen was done. Estimated blood loss was minimal. The examined duodenum was normal. Biopsies for histology were taken with a cold forceps for evaluation of celiac disease. Verification of patient identification for the specimen was done. Estimated blood loss was minimal. Moderate Sedation: Moderate (conscious) sedation was administered by the nurse and supervised by the endoscopist. The following parameters were monitored: oxygen saturation, heart rate, blood pressure, and response to care. Impression: - Normal esophagus. - Normal stomach. Biopsied. - Normal examined duodenum. Biopsied. Recommendation: - Discharge patient to home. - Resume previous diet. - Continue present medications. - Await pathology results. - Suspect functional symptoms. Attending Participation: I personally performed the entire procedure. I was present and participated during the entire procedure, including non-gamez portions. RADHA CASAS MD 03/25/2023 3:48:38 PM This report has been signed electronically. Number of Addenda: 0 Note Initiated On: 03/24/2023 9:26 AM CC Letter to: DEBORAH RG DO Aleja Tan DNP, COATING AND BAKING OPERATOR-C ENDOSCOPY EC Final Result documented in this encounter Visit Diagnoses Diagnosis Nausea and vomiting, unspecified vomiting type- Primary RUQ pain Abdominal pain, right upper quadrant documented in this encounter Additional Health Concerns Assessment Noted Time PHQ-2 Depression Total Score: 6 12/16/19 23 8:00 AM PDT documented as of this encounter Care Teams Bundling Machine Operator Relationship Specialty Start Date End Date Deborah Rg DO [address] [place] [address] PCP - General Family Medicine 12/15/22 12/19/23 Sia Guajardo MD [address] [facility] [address] [place], [place] [id number] PCP - General Internal Medicine 12/20/23 Aleja Price DNP, COATING AND BAKING OPERATOR-C [address] [place] [address] Nurse Practitioner Family 03/29/23 documented as of this encounter
--- OUTSIDE RECORDS SUMMARY | 2025-07-30 22:31 | XMS_ITS | Encounter Summary ---
Author Organization Address [address] [place] [address] Care Team Providers Care Oil Developer Name Role Phone None Per Patient, None Per Pt Primary Care Provi shanelle Unavailable Encounter Details Date Type Department Care Team (Late st Contact Info) Description 09/11/2015 Historical Radiology Encounter [facility] Administrative Office [address], [address] [place] [address] Antonia Guillermo MD Social History Tobacco Use [...] Date/Time Associated Diagnosis Comments A HISTORICAL ULTRASOUND 09/11/2015 12:00 AM PST documented in this encounter Results * [facility] Historical Ultrasound (09/11/2015 12:00 AM PST) Anatomical Region Laterality Modality Other 09/11/2015 Narrative 02/11/2018 10:49 AM PDT Patient: Astrid Magallanes ID: [id number] Note: All result statuses are Final unless otherwise noted. Tests: (1) (Ultrasound) R4 SEE REPORT *1 Obstetric Ultrasound Report Early Limited Survey Referral from: . Dr. Antonia Guillermo [facility]. [facility] [address] [place] [address] [place] [address] PATIENT INFORMATION: Name: Astrid Magallanes MR#: [id number] Age: 30 y/o Exam Date: 09/11/2015 : 1985 Visit #: 1 LMP: 07/07/2015 Location: [facility] # Fetuses: 1 INDICATION: Early OB - Confirm dates & viability APPROACH: Transabdominal and transvaginal. DATING: Assigned GA GA by LMP GA by Ultrasound (US) JUNAID 9 3/7 wks 6 5/7 wks 6 5/7 wks 05/01/16 ECTOPIC : Location: EGA: Uterine Changes: Viability: GESTATION: Sac [place] Heart Measurement Yolk Sac Length Rate ------- Present Present 7.6mm (6 5/7 136 bpm wks) Gestational Sac: Seen. Normal position within uterus. Yolk Sac: Size: 2.4 mm. OVARIES: Right: Normal - 34 x 40 x 24 Left: Normal - 17 x 30 x 15 mm. mm. COMMENTS: A single live intrauterine is present. CRL is consistent with 6 weeks and 5 days. The gestational age is assigned based on today's CRL measurement. There is a 25 x 27 x 24 mm cystic structure within the right maternal ovary consistent with a corpus luteum of early . A hypoechoic subchorionic fluid collection is noted to the left of the gestational sac measuring 27 x 22 x 14 mm, this is consistent with a subchorionic hemorrhage. Jackie Rosas MD Virtualization Engineer: Chano Henderson RDMS DateOfExam 09/11/2015 (R) JUNAID 05/01/2016 (R) Bean Giraldo 5/ wks (R) Note: An exclamation dylan (!) indicates a result that was not dispersed into the flowsheet. Document Creation Date: 09/11/2015 1:39 PM (1) Order result status: Final Collection or observation date-time: 09/11/2015 00:00:00 Requested date-time: Receipt date-time: Reported date-time: Referring Physician: Ordering Physician: Antonia KOEHLER) Specimen Source: Source: R4 Filler Order Number: [id number] Lab site: Granulating Machine Operator ID *[id number] The following non-numeric lab results were dispersed to the flowsheet even though numeric results were expected: JUNAID, 05/01/2016 GAbyUS, 6 5/7 wks Procedure Note Antonia Guillermo MD - 03/17/2018 Patient: Astrid Magallanes ID: [id number] Note: All result statuses are Final unless otherwise noted. Tests: (1) (Ultrasound) R4 SEE REPORT*1 Obstetric Ultrasound Report Early Limited Survey Referral from:. Dr. Antonia Guillermo [facility] [address] [place] [address] [address] [facility] [id number] [place] [address] PATIENT INFORMATION: Name: Astrid Magallanes MR#: [id number] Age: 30 y/o Exam Date: 09/11/2015 : 1985 Visit #: 1 LMP: 07/07/2015 Location: [facility] # Fetuses: 1 INDICATION: Early OB - Confirm dates & viability APPROACH: Transabdominal and transvaginal. DATING: Assigned GA GA by LMP GA by Ultrasound (US) JUNAID 9 12/07 wks 6 02/06 wks 6 02/06 wks 05/01/16 ECTOPIC : Location: EGA: Uterine Changes: Viability: GESTATION: [place] Heart Measurement Yolk Sac Length Rate ------- Present Present 7.6mm (6 02/06 136 bpm wks) Gestational Sac: Seen. Normal position within uterus. Yolk Sac: Size: 2.4 mm. OVARIES: Right: Normal - 34 x 40 x 24 Left: Normal - 17 x 30 x 15 mm. mm. COMMENTS: A single live intrauterine is present. CRL isconsistent with 6 weeks and 5 days. The gestational age is assigned based on today's CRL measurement. There is a 25 x 27 x 24 mm cystic structure within the right maternal ovary consistent with a corpus luteum of early . A hypoechoic subchorionic fluid collection is noted to the left of the gestational sac measuring 27 x 22 x 14 mm, this is consistent with a subchorionic hemorrhage. Jackie Rosas MD Virtualization Engineer: Chano Henderson RDMS DateOfExam 09/11/2015 (R) JUNAID 05/01/2016 (R) Bean 6 02/06 wks (R) Note: An exclamation dlyan (!) indicates a result that was not dispersedinto the flowsheet. Document Creation Date: 09/11/2015 1:39 PM (1) Order result status: Final Collection or observation date-time: 09/11/2015 00:00:00 Requested date-time: Receipt date-time: Reported date-time: Referring Physician: Ordering Physician: Antonia KOEHLER) Specimen Source: Source: R4 Filler Order Number: [id number] Lab site: Granulating Machine Operator ID *[id number] The following non-numeric lab results were dispersed to the flowsheet even though numeric results were expected: JUNAID, 05/01/2016 Bean, 6 5/7 wks us Antonia Guillermo MD IMG US ORDERABLES Final Resul t documented in this encounter Visit Diagnoses Not on filedocumented in this encounter Care Teams Oil Developer Relationship Specialty Start Date End Date None Per Patient, None Per Pt PCP - General 02/27/23 documented as of this encounter
--- OUTSIDE RECORDS SUMMARY | 2025-07-30 22:31 | XMS_ITS | Encounter Summary ---
Author Organization [facility] Address [address] [place] [address] Phone Care Team Providers Care Settlement Clerk Name Role Phone Pcp, Unknown Primary Care Provider Unavailabl e Encounter Details Date Type Department Care Team (Late st Contact Info) Description 07/17/2025 Procedure Pass [facility], Ct Scan - [facility] [address] [place] [address] Social History Tobacco Use Types Packs/Day Years [...] is your housing situation today? I have ajyla sing 07/17/2025 How many times have you [...] on file documented as of this encounter Functional Status * Calculated C-SSRS Risk Score (Lifetime/Recent) Answer Date of Assessment Author No Risk Indicated 07/17/2025 7:24 PM MARISSAT Nesha Saavedra RN * [place] Suicide Severity Rating Scale (Screener/Recent Self-Report) Question Answer Date of Assessment Author 1. Wish to be (Past 1 Month) No 025 7:24 PM MARISSAT Nesha Lewis RN 2. Non-Specific Active Suici nunu Thoughts (Past 1 Month) No 07/17/2025 7:24 PM EDT Hakan Lewis RN 6. Suicidal Behavior (Lifetime) No 5 7:24 PM Nesha Murphy RN documented as of this encounter Plan of Treatment Not on file documented as of this encounter Visit Diagnoses Not on filedocumented in this encounter Care Teams Settlement Clerk Relationship Specialty Start Date End Date Pcp, Unknown PCP - General 07/17/25 documented as of this encounter Additional Source Comments The information contained in this document represents components of the legal health record. It is not the complete legal health record.[facility]
[2025-07-30] MEDS: Diphth,Pertus(ACell),Tet Adult 0.5 ML SYRINGE IM (22:56)
[2025-07-30 23:00] VITALS: BP 149/81; PULSE 98; RESP 18; TEMP 36.6; O2SAT 97
== END 2025-07-30 23:00 | disposition home or self-care (01) ==
PROVIDERS: Emergency Provider Emergency Medicine
DX: S61.210A Laceration without foreign body of right index finger without damage to nail, initial encounter (principal); M79.644 Pain in right finger(s); W26.0XXA Contact with knife, initial encounter; Y93.9 Activity, unspecified; Y92.9 Unspecified place or not applicable; Y99.8 Other external cause status; Z23 Encounter for immunization
CPT/HCPCS: 12001; 90471; 90715; 99282; 99284

== ENCOUNTER 2025-08-24 02:52 | Emergency (ER) | payer MEDICAID, SELFPAY ==
--- OUTSIDE RECORDS SUMMARY | 2023-05-30 09:10 | XMS_ITS | Continuity of Care Document ---
Author Organization [facility] Address [address] [place] [address] Phone Care Team Providers Care Master Hearth Technician Name Role Phone Tenzin Shane MD Unavailable Unavailable Allergies, Adverse Reactions, Alerts Substance Reaction Status Criticality nifedipine Increased sun sensitivity Active No Information levothyroxine Hives / Skin Rash Active No Inform ation morphine Seizure Active No Information Medications Medication Instructions Dosage Effective Dates (start - stop) Status Comments loteprednol etabonate 0.5 % eye drops,suspension instill 1 drop by ophthalmic route 2 times every day into both eyes 1 drop - Active Xiidra 5 % eye drops in a dropperette instill 1 drop by ophthalmic route 2 times every day into both eyes approximately 12 hours apart 1.00 drop - Active duloxetine 30 mg capsule,delayed release take 1 capsule by oral route every day 30 MG - Active betamethasone dipropionate 0.05 % topical cream apply by topical route every day a thin layer to the affected area(s) 0.00 - Active dextroamphetamine-amp hetamine 20 mg tablet take 1 tablet by oral route every day before breakfast 20 MG - Active guanfacine 1 mg tablet take 1 tablet by oral route every day at bedtime 1 MG - Active levothyroxine 125 mcg tablet take 1 tablet by oral route every day 125 MCG - Active Vyvanse 70 mg capsule take 1 capsule by oral route every day in the morning 70 MG - Active pimecrolimus 1 % topical cream apply by topical route 2 times every day a thin layer to the affected area(s) ; rub in gently and completely 0.00 - Active tamoxifen 20 mg tablet take 1 tablet by oral route every day 20 MG - Active Procedures Procedure Date OFFICE/OUTPATIENT VISIT, EST Advance Directives Directive Yes / No Effective Date File Name No Information Encounters Encounter Description Practice Location Reason(s) For Visit Diagnoses Date Provider OFFICE/OUTPA TIENT VISIT, EST [facility], [address] [place], [address], [place] tel:[phone] [place] parasites in eyes (chief complaint) Systemic candidiasisOther intermodal customer service drug therapyDry eye syndrome of bilateral lacrimal glands 3 Acosta Dave. [facility], [address], [place], [place], [id number], [place]. tel:[phone] [facility], [address] [place], [address], [place] tel:[phone] [place] Growth on eyes (chief complaint) Systemic candidiasisAllergic conjunctivitis, chronicDry eye syndrome of bilateral lacrimal glandsOther subjective visual disturbancesOther intermodal customer service drug therapy 3 Acosta Dave. [facility], [address], [place], [place], [id number], [place]. tel:[phone] [facility], [address] [place], [address], [place] tel:[phone] [place] swelling around eye (chief complaint) Other subjective visual disturbancesDry eye syndrome of bilateral lacrimal glandsConjunctival edema, right eye 3 Claus Murray. [facility], [address], [place], [address], [place]. tel:[phone] [facility], [address] [place], [address], [place] tel:[phone] [place] No Information 3 Amanda Scott. [facility], [address], [place], [address], [place]. tel:[phone] [facility], [address] [place], [address], [place] tel:[phone] [place] floaters (chief complaint) Other subjective visual disturbances Dec- 3 Callum Solo. [facility], [address] [place], [address], [place]. tel:[phone] [facility], [address] [place], [address], [place] tel:[phone] Luis Carlos floaters and flashes (chief complaint) Other subjective visual disturbancesMyopia, bilateralDiplopiaOther intermodal customer service drug therapyLupusDermatomyositis 3 Glass Cathy. [facility], [address] [place], [address], [place]. tel:[phone] [facility], [address] [place], [address], [place] tel:[phone] [place] Medication monitoring (chief complaint) High Risk Medication ScreeningDry eye syndrome of bilateral lacrimal glands 3 Amanda Lorinna. [facility], [address], [address], [place], [address], [place]. tel:[phone] [facility], [address] [place] [address] [place], [address], [place] tel:[phone] [place] vision changes (chief complaint) Regular astigmatism, bilateral 2 [facility]. [facility], [address] [place] [address], [address], [place]. tel:[phone] [facility], [address] [place] [address], [address], [place] tel:[phone] [place] Swollen, dry eyes (chief complaint) Hypertensive retinopathy, bilateralDry eye syndrome of bilateral lacrimal glands 2 Amanda Lorinna. [facility], [address], [address], [place], [address], [place]. tel:[phone] [facility], [address] [place], [address], [place] tel:[phone] [place] swollen (chief complaint) PhotophobiaDry eye syndrome of bilateral lacrimal glands 2 Amanda Lorinna. [facility], [address], [address], [place], [address], [place]. tel:[phone] [facility], [address] [place], [address], [place] tel:[phone] [facility] redness (chief complaint) Dry eye syndrome of bilateral lacrimal glandsCombined forms of age-related cataract, bilateralHypertensive retinopathy, bilateral [facility]. [facility], [address], [place], [address], [place]. tel:[phone] Family History Family Member Type Diagnosis Age At Onset No Information Payers Payer name Insurance type Covered republican ID [facility] [id number] Social History Type Description Quantity Date Captured Comments Alcohol Use Details Unknown Caffeine Use Details Unknown Tobacco Use Status No Information Smoking Status No Information Non-Smoking Tobacco Use Details : No Details Available : No Details Available Sex Female Chief Complaint And Reason For Visit From encounter dated '05/30/2023 14:10'. parasites in eyes (chief complaint). Description: The 37 year old patient presents for evaluation of parasites in eyes in the right eye and left eye. Patient reports parasites were already present ineyes, but they've become darker and more prominent starting Tuesday nights. Feels that they're moving around underneath the first layer of her eye. Vision's been really bad, still having severe light sensitivity. Notices flashes of light in vision, which come and go with her swelling. Taking steroids helps with symptoms. Eye pain has also been getting worse. Stopped using Xiidra, but it didn't seem to have any impact on eyes. Now using Loteprednol BID, wants refill. History Of Present Illness Encounter Date Complaint History Of Prese nt Illness parasites in eyes The 37 year ol d patient presents for evaluation of parasites in eyes in the right eye and left eye. Patient reports parasites were already present in eyes, but they've become darker and more prominent starting Tuesday nights. Feels that they're moving around underneath the first layer of her eye. Vision's been really bad, still having severe light sensitivity. Notices flashes of light in vision, which come and go with her swelling. Taking steroids helps with symptoms. Eye pain has also been getting worse. Stopped using Xiidra, but it didn't seem to have any impact on eyes. Now using Loteprednol BID, wants refill. Growth on eyes Patient reports that she has been dealing with a fungus infection that is spread all over her body. Has been antibiotics for this but it is getting worse. Is seeing ore floaters in each eye. Things she looks at have a shadow to it. Her eyes have been burning and has light sensitivity. Has been using a steroid drop that [facility] Rx but ran out three days ago. swelling around eye The 37 year old patient presents for evaluation of swelling around right eye. Patient reports swelling began back when she was having IVIG in November, had bad reaction to IVIG that resulted in vision loss. Now when she looks down and off to sides her vision goes away. On she noticed puffiness above eyes OU. Vision's definitely gotten blurrier, also has light sensitivity today. Eyes are throbbing all day, thinks it's from swelling. Noticed that when she takes Prednisone her symptoms improve. Showed to cream cheese maker and oncologist, they said it looked normal. Uses Xiidra BID OU and warm compresses, but doesn't feel like they've made a difference. Also noticed fluid filling under the first layer of my eye . floaters The 37 year old patient presents for evaluation of floaters in the right eye. Had an IVIG drop infusion and had a bad reaction to it. Afterwards she had a bad reaction to it and her vision on her right eye was gone. It was gone for 3 hours. Had the infusion a month ago. Neurologist thinks she possibly had a stroke. Lots of light sensitivity. Vision is very blurry. Floaters are colorful. Peripheral vision is mckeon. Flashes of light OD. Taking plaquenil for Lupus. floaters and flashes The 37 year old patient presents for evaluation of floaters and flashes in the right eye and left eye. The onset was gradual and started in summer 2021 but worsened in June 2022. Pt states floaters are constant and is very light sensitive. Pt experiences flashes ~20-30x/day. Pt states flashes/floaters remain when eyes are closed. Pt has had a curtain veil a couple of times starting in June 2022. Pt has constant double vision. Pt states overall vision has worsened in a short amount of time considering her glasses are 2 months old. Pt was dx with lupus, dermatomyocitis, multicentric castle kathy disease. Pt states her previous willower did not really listen to her. Pt states her right eye is worse and can barely see out of her right eye without her glasses. Pt states there is a layer of film in her sclera OU and fluid underneath it. Pt takes 400mg 1x/day of plaquenil since August 2022; weighs 230 lbs; dosin.83 mg/kg. Pt is starting IVIG next week. Medication monitoring Patient re ports that she got new glasses and they work out well for her. Her eyes water from light sensitivity which makes the vision more blurry. Uses xiidra 5x daily. Is still taking plaquenil 400mg daily, Asathioprine, and prednisone. Height 5'4 weight 220, unsure about weight though. Mentions that during the testing that she noticed that colors are more dull in her right eye compared to the left eye.Pt has a photo of her eye due to some concerns of the appearance, and points to normal conjunctiva and photo reflections. vision changes Patient reports her vision is bad. SHe is very photosensitive. She is taking prednisone right now for lupus, having a flare. Swollen, dry eyes Patient report s that her light sensitivity has gotten worse since last visit. Was recently Dx with Lupus. Her eyes are very dry. Uses Xiidra twice daily. Both eyes feel more blurry. Has noticed an increase amount of floaters.Ava Test with proparacaine: 4mm OD 3mm Volodymyr geriatric personal care aide + throat cutter + oncologistJust got a PCP. Recently had her blood drawn. swollen pt is showing me pictures of the inside of the [place] corner of the lids that she feels are swollen, and getting worse She feel like this is contributing to her dry eyes. Pt called back on 05/25/22,1 day after being seen for her full dilated exam. Pt states that she is using ATs (bottle) QID OU. Warm compresses 3x since being seen on 05/24/22.Pt mentions that when lights flash around her eyes notices increased irritation + swelling in the eyelids.Showed images of inner UL.Pt mentions that she did start PF ATs QID OU redness pt states that a bout a month ago she noticed a huge sensitivity to sunlight, OU feel like they are burning, itchy, scratchy, eyes get swollen when in contact w any sunlight, noticing bumps around and on her eye. says she feels like her eye is boiling . vision is blurry. experiencing floaters. pt has been using AT sometimes. states the AT wiggins her eyes but makes them feel less scratchy, has not been using warm compresses.Symptoms started about 1 month ago. Had a lot of photosensitivity. Had Positive JOSEPH. Was tested for different autoimmune diseases. No diagnosis at this point. Ran a few lupus tests, 3 came back elevated. Not sure why she was not diagnosed with Lupus. Is getting a second opinion. Doctor said she should see an eye doctor and geriatric personal care aide for eval. PCP is Dr. Guajardo. Was on Prednisone for a round but it ended last week. Was on it for 9 days for severe swelling . Last eye exam around 2019. [facility]. Told she has astigmatism. Instructions Date Instruction Additional Infor adelita Impression/Plan - On plaquenil for Lupus, dermatomyositis. No e/o toxicitiy on OCT today, though needs HVF 10-2Additionally, no evidence of intraocular inflammation or other ocular complications associated with either lupus, dermatomyosistis, or Castleman disease. Related to Other intermodal customer service drug therapy Impression/Plan - # Dry Eye Syndrome - may be contributing to her photosensitivity - undergoing rheumatologic workup per pt, due to elevated JOSEPH and other + SLE factors and classic rash improved on course of PO steroids, per pt. - Change from preserved to Preservative free ATs (using 6+ times per day) - Continue Xiidra BID OU Related to Dry eye syndrome of bilateral lacrimal glands Impression/Plan - Keyur hollis feels that there are parasites in her eyes- She is frustrated and feels no one believes that there areI reassured her that she does have periorbital inflammation, but none that is in her eye and there is no sign of parasitic infectionShe feels that she is not being listened Adelaida listened attentively for 30 minutes. She showed me 15 pictures of her eyes on her cell phoneI let her know that she has mucoid strands in eyes, prominent vessels in conjunctiva and lacrimal and orbital tissues are swollenThis is from underlying autoimmune process that is currently being investigated/treatedShe was in tears and feels that she is worsening and no one is listening to herWe repeatedly said the same thing back and forth 12-13 times after a thorough examExam shows slightly engorged blood vessels with prominent orbital fat. Tried to reassure patient repeatedly 05/30/23Patient reports +fungus on blood cultures from 05/16/23No fungal involvement in either eyeH[facility] Last was late March.She feels that her facial swelling has been improving but that her lacrimal glands are slowly getting bigger over the last 1 year or so, bilaterally. She does not have a new systemic diagnosis (though had SLE/dermatomyositis diagnoses in past) Related to Systemic candidiasis Impression/Plan - Gayathri scussed with patient the importance of regular use of chilled PF artificial tears (as frequent as 4-6x/day), particularly during visually intensive tasks. Related to Allergic conjunctivitis, chronic Impression/Plan - Keyur hollis reports +fungus on blood cultures from 05/16/23Prelim too early to tell but presumed candidiasis Hospitalisation X 2 at [facility]. Last was late March.She feels that her facial swelling has been improving but that her lacrimal glands are slowly getting bigger over the last 1 year or so, bilaterally. She does not have a new systemic diagnosis (though had SLE/dermatomyositis diagnoses in past) Related to Systemic candidiasis Impression/Plan - On plaquenil for Lupus, dermatomyositis. No e/o toxicitiy on OCT today, though needs HVF 10-2Additionally, no evidence of intraocular inflammation or other ocular complications associated with either lupus, dermatomyosistis, or Castleman disease. Related to Other senior care drug therapy Impression/Plan - # Dry Eye Syndrome - may be contributing to her photosensitivity - undergoing rheumatologic workup per pt, due to elevated JOSEPH and other + SLE factors and classic rash improved on course of PO steroids, per pt. - Change from preserved to Preservative free ATs (using 6+ times per day) - Continue Xiidra BID OU- Shirmer done 07/2022 Related to Dry eye syndrome of bilateral lacrimal glands Impression/Plan - Mi ld subconjunctival lymphatic edema OD. Likely related to her systemic conditions. She is pending consultation at [facility] for several conditions. Recommend beginning Loteprednol BID in the meantime for flare-ups - rx sent. Related to Conjunctival edema, right eye Impression/Plan - # Dry Eye Syndrome - may be contributing to her photosensitivity - undergoing rheumatologic workup per pt, due to elevated JOSEPH and other + SLE factors and classic rash improved on course of PO steroids, per pt. - Change from preserved to Preservative free ATs (using 6+ times per day) - Continue Xiidra BID OU- Shirmer done 07/2022 Related to Dry eye syndrome of bilateral lacrimal glands Impression/Plan - Keyur telma reports vision loss OD x 3 hours and right sided curtain/field loss that occurred during her IVIG infusion reaction several months ago. Since then, vision has returned but she feels her peripheral vision is mckeon and that her eyes feel weak when she looks side to side. She also describes green and color spots in her vision. Her neurologist was concerned for stroke or PRES syndrome.Her symptoms suggest transient homonymous field cuts. No clear etiology at this time, but symptoms of PRES may include homonymous hemianopia, blurred vision, and cortical visual impairment. Recommended she follow-up with her neurology. Related to Other subjective visual disturbances Impression/Plan - Keyur telma reports vision loss OD x 3 hours and right sided curtain/field loss that occurred during her IVIG infusion reaction 1 month ago. Since then, vision has returned but she feels her peripheral vision is mckeon and that her eyes feel weak when she looks side to side. She also describes green and color spots in her vision. Her neurologist was concerned for stroke or PRES syndrome and she has an MRI brain scheduled next week.Discussed her acuity is reduced today but no other findings on exam or OCT macula. No retinal detachments. Her symptoms suggest transient homonymous field cuts. No clear etiology at this time, but symptoms of PRES may include homonymous hemianopia, blurred vision, and cortical visual impairment. Recommended she follow-up with her neurology. Recommend follow-up as scheduled in January with Dr. Patel for further evaluation, consider visual field testing if symptoms persist. Related to Other subjective visual disturbances Impression/Plan - Sy mptomatic for floaters and flashes OU, started summer 2021 and has worsened since. No obvious PVD or other retinal pathology to explain symptoms. Pt has many complaints that I am not able to attribute to any clinical findings. There is no intraocular inflammation, disc edema or peripheral retinal issue. - Unclear etiology, may be related to entoptic phenomena or visual snow- OCT macula WNL - Call immediately to be seen if worsening floaters, if flashes, shadow, decreased vision or decreased peripheral vision. Discussed that if occurs, could be sign of retinal tear or detachment which can be associated with permanent vision loss and may need urgent treatment. Related to Other subjective visual disturbances Impression/Plan - On plaquenil for Lupus, dermatomyositis. Seeing Dr. Patel for plaquenil retinal screenings. No e/o toxicitiy on OCT today, though needs HVF 10-2 as scheduled. Additionally, no evidence of intraocular inflammation or other ocular complications associated with either lupus, dermatomyosistis, or Castleman disease. Related to Other intermodal customer service drug therapy Impression/Plan - Mo nocular diplopia OD. May be attributable to a combination of refractive error and dry eye. Pt does also have mild central lenticular opacities, though these do not appear visually significant and I doubt this is the cause of her symptoms as they are present bilaterally. - Lensometry today appears to be slightly different than written MRx from 09/23. Asked patient to follow up with Dr. Berman regarding glasses prescription. Related to Diplopia Impression/Plan - Di scussed eye findings. Patient reports decreased vision OD even with new MRx dispensed 09/23/22. No refraction done today as pt was already dilated at the time of my exam. Lensometry appears only slightly different from MRx. Recommend she return for a glasses check with Dr. Berman. 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 Dose of 5.0 mg/kg/day or less is associated with a lower risk of Plaquenil toxicity.- OCT mac: outer retina intact OD/ outer retina intact OS- No evidence of Plaquenil toxicity today, ok to continue- Letter sent to referring provider Related to High Risk Medication Screening Return in 1 year hosea Berman, OD for vision/ dilated exam. Related to Regular astigmatism, bilateral Impression/Plan - New spec rx di spensed. Related to Regular astigmatism, bilateral RTC in 6M for a surf bao check (no gtts prior to seeing [facility]) with [facility] Related to Hypertensive retinopathy, bilateral Impression/Plan - + HBPExam findings, improved. Pt states that her BP elevated after stopping PO pred. Enc'd good control of vasculopathic risk factors. Enc'd pt to continue monitoring at home, and discussing with PCP. Optos+ LMonitors at home- 202/150ish (lowest), 218/150ishIs working with her PCP to lower BP.Pt mentions that when she was on Prednisone, symptoms improved. However as she is tapering became symptomatic. Related to Hypertensive retinopathy, bilateral Impression/Plan - # Dry Eye Syndrome - may be contributing to her photosensitivity - undergoing rheumatologic workup per pt, due to elevated JOSEPH and other + SLE factors and classic rash improved on course of PO steroids, per pt. - Change from preserved to Preservative free ATs (using 6+ times per day) - Continue Xiidra BID OU- Shirmer done 07/2022 Related to Dry eye syndrome of bilateral lacrimal glands Impression/Plan - Mu ltiple concerns addressed today. Feels water in her eyes, likely chemosis, but also describes water that blurs her vision, so likely also a component of epiphora. Pt feels that she has a skin reaction/ plaques/ rash around her eyelids. Shows photos of her everting her lid, with lacrimal gland prolapsing and lateral canthal tendon on stretch. Strongly enc'd pt to continue PF ATs to address drynessDiscussed that allergies, inflammations can cause chemosis. Can try Xiidra to address inflammation and KCS. FU as scheduled. *Aav at next visit* Related to Photophobia Impression/Plan - + HBPPt states that her BP elevated after stopping PO pred. Enc'd good control of vasculopathic risk factors. Enc'd pt to continue monitoring at home, and discussing with PCP. Optos+ LMonitors at home- 202/150ish (lowest), 218/150ishIs working with her PCP to lower BP. Related to Hypertensive retinopathy, bilateral Impression/Plan - # Cataracts OU, mild - query component of congenital cataract, and may be contributing to her photosensitivity- Not visually significant/not affecting ADLs - Discussed diagnosis and findings with patient- Monitor for now, or call sooner if VA worsens. Related to Combined forms of age-related cataract, bilateral Impression/Plan - # Dry Eye Syndrome - may be contributing to her photosensitivity - undergoing rheumatologic workup per pt, due to elevated JOSEPH and other + SLE factors and classic rash improved on course of PO steroids, per pt. - Change from preserved to Preservative free ATs (using 6+ times per day) - Discussed possible medicated ATs, such as Restasis/ Xiidra.- Monitor with conservative treatment at this time.- Shirmer at next visit OU Related to Dry eye syndrome of bilateral lacrimal glands Assessments Type Assessment Date assessment Systemic candidiasis impression Systemic candidiasis: B37.7 assessment Other senior care drug therapy May impression Other senior care drug therapy: Z79.899.Lupus: M32.9.Dermatomyositis: M33.13 assessment Dry eye syndrome of bilateral la crimal glands impression Dry eye syndrome of bilateral la crimal glands: H04.123
--- OUTSIDE RECORDS SUMMARY | 2024-11-24 04:00 | XMS_ITS ---
Author Organization [facility] Address [address] [facility] [address] [address] [place] [address] Care Team Providers Care Adhesive Sprayer Name Role Phone Lizette Guajardo Primary Care Provider Unavailab Tenzin Rodrigues Unavailable [phone] Rosie Faria Unavailable Unavailable Migration, Provider Unavailable Unavailable REASON FOR VISIT EMR-Jesse Encounters Encounter Location Date Provider Diagnosis [facility] [address] [place] [address] 11/24/2024 Provider Migration Plan Of Treatment Medication Medication Name Sig Start Date Stop Date Notes Sertraline HCl 100 MG Tablet Oral Synthroid 125 MCG Tablet Oral Tamoxifen Citrate 20 MG Tablet Oral Vyvanse 70 MG Capsule Oral NIFEdipine ER 30 MG Tablet Extended Release 24 Hour 1 tab po qd Oral 11/12/2022 predniSONE 10 MG Tablet Take 30mg daily for 2 weeks then 20mg daily for 2 weeks then stay on 10mg until you discuss with your gift manager Oral 09/02/2022 09/17/2022 azaTHIOprine 50 MG Tablet Take 1 tablet (50mg) daily for 2 weeks. If you are tolerating it then increase dose to 2 tablets (100mg) daily. Then 2 weeks later, if still tolerating, increase to 3 tablets (150mg) daily and after 2 weeks, if still tolerating, increase to your goal dose Oral 09/15/2022 11/12/2022 guanFACINE HCl 2 MG Tablet Oral NuvaRing 0.12-0.015 MG/24HR Ring Vaginal Amphetamine-Dextroamphetamin e 20 MG Tablet Oral Progress Notes * Astrid COSBY LDOB:[birth year] (39 yo F)Acc No.[id number]:11/24/2024 Patient: Astrid CID :[id number] A ge:39 Y S ex:Female Address[address], [place], [address] * Refills Stop Amphetamine-Dextroamphetamine Tablet, 20 MG, Oral Stop azaTHIOprine Tablet, 50 MG, Oral, Take 1 tablet (50mg) daily for 2 weeks. If you are tolerating it then increase dose to 2 tablets (100mg) daily. Then 2 weeks later, if still tolerating, increase to 3 tablets (150mg) daily and after 2 weeks, if still tolerating, increase to your goal dose Stop azaTHIOprine Tablet, 50 MG, Oral, Take 1 tablet (50mg) daily for 2 weeks. If you are tolerating it then increase dose to 2 tablets (100mg) daily. Then 2 weeks later, if still tolerating, increase to 3 tablets (150mg) daily and after 2 weeks, if still tolerating, increase to your goal dose Stop guanFACINE HCl Tablet, 2 MG, Oral Stop NuvaRing Ring, 0.12-0.015 MG/24HR, Vaginal Stop predniSONE Tablet, 10 MG, Oral, Take 30mg daily for 2 weeks then 20mg daily for 2 weeks then stay on 10mg until you discuss with your gift manager Stop predniSONE Tablet, 10 MG, Oral, Take 30mg daily for 2 weeks then 20mg daily for 2 weeks then stay on 10mg until you discuss with your gift manager Stop Sertraline HCl Tablet, 100 MG, Oral Stop Synthroid Tablet, 125 MCG, Oral Stop Tamoxifen Citrate Tablet, 20 MG, Oral Stop Vyvanse Capsule, 70 MG, Oral Stop NIFEdipine ER Tablet Extended Release 24 Hour, 30 MG, Oral, 1 tab po qd Stop NIFEdipine ER Tablet Extended Release 24 Hour, 30 MG, Oral, 1 tab po qd Subjective: * Chief Complaints: * E MR-Jesse * * Date:
--- OUTSIDE RECORDS SUMMARY | 2024-11-25 04:00 | XMS_ITS ---
Author Organization [facility] Address [address] [address] [place] [address] Care Team Providers Care Tractor Distributor Name Role Phone Lizette Guajardo Primary Care Provider Unavailab Tenzin Rodrigues Unavailable [phone] Rosie Faria Unavailable Unavailable Migration, Provider Unavailable Unavailable Allergies Allergen (clinical drug ingredient) Drug/Non Drug Allergy documented on EMR Reaction Allergy Type Onset Date Status ADHESIVE & TAPE (uncoded) Very bad rash Allergy 04/06/2022 Active Levothyroxine Sodium Hives, Nausea And Vomiting No reaction to brand name Synthroid. Drug Allergy 04/06/2022 Active morphine Morphine Sulfate Seizures. Not s ure if it was coincidental as she was passing a kidney stone at that time. She tolerates other opioids. Hydrocodone causes nausea. Oxycodone seems to be fine. Drug Allergy 04/06/2022 Active REASON FOR VISIT EMR-Jesse Medications Medication SIG (Take, Route, Frequency, Duration) Notes Start Date End Date Status azaTHIOprine 50 MG Tablet Take 3 tablets (150mg) daily and after 2 weeks, if still tolerating, increase to your goal dose of 4 tablets (200mg) daily if you are not already add this dose. Oral 11/12/2022 Active guanFACINE HCl 2 MG Tablet 1 tab po qd Oral Active Hydroxychloroquine Sulfate 2 00 MG Tablet Take 2 tablet by mouth once a day Oral 11/12/2022 Active methylPREDNISolone 32 MG Tablet Take Take 2 tablets daily for a month then then 1.5 tablets daily for a month then 1 tablet daily for a month, then 0.5 tablets daily for a month Oral 03/10/2023 Active Amphetamine-Dextroamphetamin e 20 MG Tablet 1 tab po qd Oral Active NIFEdipine ER 30 MG Tablet Extended Release 24 Hour Take 1 tablet daily. Oral 11/12/2022 Active Synthroid 125 MCG Tablet 1 tab po qd Oral Active Tamoxifen Citrate 20 MG Tablet 1 tab po qd Oral Active traMADol HCl 50 MG Tablet TAKE ONE TABLE T BY MOUTH TWICE A DAY NEEDED FOR PAIN Oral 09/30/2022 Active Vyvanse 70 MG Capsule 1 tab po qd Oral Active NuvaRing 0.12-0.015 MG/24HR Ring use as directed Vaginal Active predniSONE 10 MG Tablet Take 60mg daily for a week, then 50mg daily for a week, then 40mg daily for a week, then 30mg daily for a week, then 20mg daily for a week then 10mg daily for a week, then stay on 5mg (half a tablet) daily until discussing with rheum Oral 09/17/2022 Active Sertraline HCl 100 MG Tablet 1 tab po qd Oral Active Social History Social History Additional Details Category Social Info Options Details Migrated Social History Migrated Social History smoking status : Former smoker Encounters Encounter Location Date Provider Diagnosis [facility] [address] [place] [id number] 11/25/2024 Provider Migration Plan Of Treatment No Information Progress Notes * Astrid COSBY LDOB:[birth year] (39 yo F)Acc No.[id number]:11/25/2024 Patient: Astrid CID :1985 A ge:39 Y S ex:Female Address:[address] [place] [address] Subjective: * Chief Complaints: * E MR-Jesse * Social History: M igrated Social History: M igrated Social History: smoking status : Former smoker. * Medications: T akingAmphetamine-Dextroamphetamine 20 MG Tablet 1 tab po qd Oral azaTHIOprine 50 MG Tablet Take 3 tablets (150mg) daily and after 2 weeks, if still tolerating, increase to your goal dose of 4 tablets (200mg) daily if you are not already add this dose. Oral guanFACINE HCl 2 MG Tablet 1 tab po qd Oral Hydroxychloroquine Sulfate 200 MG Tablet Take 2 tablet by mouth once a day Oral methylPREDNISolone 32 MG Tablet Take Take 2 tablets daily for a month then then 1.5 tablets daily for a month then 1 tablet daily for a month, then 0.5 tablets daily for a month Oral NIFEdipine ER 30 MG Tablet Extended Release 24 Hour Take 1 tablet daily. Oral NuvaRing 0.12-0.015 MG/24HR Ring use as directed Vaginal predniSONE 10 MG Tablet Take 60mg daily for a week, then 50mg daily for a week, then 40mg daily for a week, then 30mg daily for a week, then 20mg daily for a week then 10mg daily for a week, then stay on 5mg (half a tablet) daily until discussing with rheum Oral Sertraline HCl 100 MG Tablet 1 tab po qd Oral Synthroid 125 MCG Tablet 1 tab po qd Oral Tamoxifen Citrate 20 MG Tablet 1 tab po qd Oral traMADol HCl 50 MG Tablet TAKE ONE TABLET BY MOUTH TWICE A DAY NEEDED FOR PAIN Oral Vyvanse 70 MG Capsule 1 tab po qd Oral Taking Amphetamine- Dextroamphetamine 20 MG Tablet 1 tab po qd Oral Taking azaTHIOprine 50 MG Tablet Take 3 tablets (150mg) daily and after 2 weeks, if still tolerating, increase to your goal dose of 4 tablets (200mg) daily if you are not already add this dose. Oral Taking guanFACINE HCl 2 MG Tablet 1 tab po qd Oral Taking Hydroxychloroquine Sulfate 200 MG Tablet Take 2 tablet by mouth once a day Oral Taking methylPREDNISolone 32 MG Tablet Take Take 2 tablets daily for a month then then 1.5 tablets daily for a month then 1 tablet daily for a month, then 0.5 tablets daily for a month Oral Taking NIFEdipine ER 30 MG Tablet Extended Release 24 Hour Take 1 tablet daily. Oral Taking NuvaRing 0.12-0.015 MG/24HR Ring use as directed Vaginal Taking predniSONE 10 MG Tablet Take 60mg daily for a week, then 50mg daily for a week, then 40mg daily for a week, then 30mg daily for a week, then 20mg daily for a week then 10mg daily for a week, then stay on 5mg (half a tablet) daily until discussing with rheum Oral Taking Sertraline HCl 100 MG Tablet 1 tab po qd Oral Taking Synthroid 125 MCG Tablet 1 tab po qd Oral Taking Tamoxifen Citrate 20 MG Tablet 1 tab po qd Oral Taking traMADol HCl 50 MG Tablet TAKE ONE TABLET BY MOUTH TWICE A DAY NEEDED FOR PAIN Oral Taking Vyvanse 70 MG Capsule 1 tab po qd Oral * Allergies: A DHESIVE & TAPE: Very bad rash - Allergy - Onset Date 04/06/2022Levothyroxine Sodium: Hives, Nausea And Vomiting N o reaction to brand name Synthroid. - Allergy - Onset Date 04/06/2022Morphine Sulfate: Seizures. Not sure if it was coincidental as she was passing a kidney stone at that time. She tolerates other opioids. Hydrocodone causes nausea. Oxycodone seems to be fine. - Allergy - Onset Date 04/06/2022 * * Date:
[2025-08-24 03:01] VITALS: BP 154/84; PULSE 122; RESP 20; TEMP 36.7; O2SAT 99; BMI 36.7
--- NOTE | 2025-08-24 03:11 | ED.GENADULT ---
HPI - General Adult General Chief complaint: General Medical Stated complaint: med refill, crisis Time Seen by Provider: 08/24/25 02:55 Source: patient and family Mode of arrival: wheelchair Limitations: no limitations History of Present Illness ED Provider: Dr. Yajaira Reeves HPI narrative: Patient comes to the emergency room accompanied by her mother. Patient is crying, screaming, seems to be anxious. According to the patient's mother who arrived with the patient, the patient is visiting from [place]. Patient has stopped taking her Synthroid for unclear reason several weeks ago. She has been taking intermittently some of her mother's. The mother reports that the patient has not been formally diagnosed with any specific condition other than anxiety. Seems that the patient is very concerned about random health issues, the patient's mother describes her daughter as hypochondriac. Related Data Previous Rx's ?Medication ?Instructions ?Recorded levothyroxine 150 mcg capsule 150 mcg PO DAILY #30 caps 08/24/25 (Tirosint) Allergies Allergy/AdvReac Type Severity Reaction Status Date / Time adhesive tape (Adhesive Tape) Allergy Mild BLISTERS Verified 08/24/25 03:04 morphine (Morphine) Allergy Mild SEIZURES Verified 08/24/25 03:04 From VICODIN Allergy Unknown NAUSEA & Uncoded 08/24/25 03:04 VOMITING PMFSH Social History Social History Smoked in Last 30 Days: No Use of substances other than those prescribed or required for medical reasons: No Advance Directives: No Advance Directives Information Provided: No Do you have a plan to hurt others: No Plan Patient : No Physical Exam ED Exam Exam: Appearance: Alert. Oriented X3. No acute distress. My arrival, patient very anxious. But patient was able to calm down Eyes: Pupils equal, round and reactive to light. ENT: Pharynx normal. Neck: Normal inspection. Neck supple. No lymph nodes noted. No crepitus CVS: Normal heart rate and rhythm. Pulses normal. Normal S1 and S2 Respiratory: No respiratory distress. Breath sounds normal. No Wheezing. No rales Abdomen: Soft and nontender. No rigidity. No distention. Skin: Skin warm and dry. Normal skin color. Normal skin turgor. Extremities: No lower extremity edema. No Lacerations. No Rash Neuro: Oriented X 3. No motor deficit. No sensory deficit. Moving all extremities. No slurred speech. CN 2 through 12 grossly intact Psych: calm, cooperative, normal affect Vital Signs: Vital Signs - 24 hr 08/24/25 03:01 08/24/25 04:37 Temperature 98.1 F Pulse Rate 122 H 86 Respiratory Rate 20 18 Blood Pressure 154/84 H 136/92 H Pulse Oximetry 99 98 Oxygen Delivery Method Room Air BMI result Body Mass Index 36.7 Course Course Course Narrative: Patient very concerned that she has been out of her Tirosint for 2 weeks Patient states that she is not SI, no HI, patient does not want to be seen by the care team for anxiety. Medical Decision Making Medical Decision Making [facility] Narrative: I discussed the lab work with the patient. No significant abnormality in patient's hematology or chemistry. Patient's TSH is elevated at 29.8. However, the free T4 is normal, hCG negative. Patient has a clinical hypothyroidism. However, I offered the patient to start her on Tirosint. Patient states that she takes 175 mcg. Given patient's weight, I discussed with the patient that we will start her on 150 mcg and then she can follow-up with her outreach rep back home and they may readjust the dose. Patient agrees with plan. Lab Data [facility] Lab Attestation statement: I reviewed the patient's lab results. 08/24/25 04:03 08/24/25 04:03 Labs: Lab Results 08/24/25 08/24/25 Range/Units 04:03 04:15 WBC 9.0 (4.8-10.8) X10*3/uL RBC 4.89 (4.20-5.50) X10*6/uL Hgb 14.6 (12.0-16.0) g/dl Hct 43.2 (37.0-47.0) % MCV 88.3 (80.0-98.0) fL MCH 29.9 (27.0-33.0) pg MCHC 33.8 (31.0-35.0) g/dl RDW 12.7 (11.0-16.0) % Plt Count 343 (160-400) X10*3/uL MPV 11.1 (9.4-12.3) fL Immature Gran % (Auto) 0.4 (0.0-0.4) % Neut % (Auto) 68.0 (45-73) % Lymph % (Auto) 22.9 (20-40) % Cooper % (Auto) 6.2 (2-11) % Eos % (Auto) 2.1 (0-4) % Baso % (Auto) 0.4 (0-2) % Lymph # (Auto) 2.1 (1.2-4.9) X10*3/uL Cooper # (Auto) 0.6 (0.1-1.2) X10*3/uL Eos # (Auto) 0.2 (0.0-0.4) X10*3/uL Baso # (Auto) 0.0 (0.0-0.2) X10*3/uL Abs Immat Gran (auto) 0.04 H (0.00-0.03) X10*3/uL Absolute Neuts (auto) 6.1 (2.0-8.3) x10*3/uL Absolute Nucleated RBC 0.000 (0.0-0.012) X10*3/uL Nucleated RBC % (auto) 0.0 (0.0-0.2) /100WBC Sodium 142 (135-145) mmol/L Potassium 3.8 (3.3-5.1) mmol/L Chloride 103 (96-108) mmol/L Carbon Dioxide 29 (22-29) mmol/L Anion Gap 14 (12-20) BUN 10 (9-16) mg/dL Creatinine 0.97 (0.5-1.4) mg/dL Estim Creat Clear Calc 89.8 Estimated GFR > 60 Random Glucose 114 (60-115) mg/dL Calcium 9.8 (8.4-10.2) mg/dL Magnesium 2.1 (1.6-2.6) mg/dL Total Bilirubin 0.2 (0.0-1.0) mg/dL Direct Bilirubin < 0.2 (0.0-0.5) mg/dL AST 27 (5-31) U/L ALT 18 (0-31) U/L Alkaline Phosphatase 98 (39-117) U/L Total Protein 7.5 (6.5-8.0) g/dL Albumin 4.5 (3.5-5.0) g/dL TSH 29.84 H (0.32-4.0) uIU/mL Free T4 0.75 (0.71-1.85) ng/dL Beta HCG, Quant < 2 mIU/mL Urine Color Yellow Urine Appearance Cloudy Urine pH 5.0 (5.0-9.0) Ur Specific Frederica >= 1.030 H (1.005-1.025) Urine Protein Trace (Neg-Trace) mg/dL Urine Glucose (UA) Negative (Negative) mg/dL Urine Ketones Trace (Negative) mg/dL Urine Blood Negative (Negative) Urine Nitrite Negative (Negative) Ur Leukocyte Esterase Negative (Negative) Salicylates < 5.0 L (15-30) mg/dL Urine Opiates Screen Not Detected (Not Detect) Ur Buprenorphine Scrn Not Detected (Not Detect) ng/mL Ur Oxycodone Screen Not Detected (Not Detect) ng/mL Urine Methadone Screen Not Detected (Not Detect) ng/mL Urine Fentanyl Screen Not Reportable Acetaminophen < 3 (<30) mcg/mL Ur Barbiturates Screen Not Detected (Not Detect) Ur Phencyclidine Scrn Not Detected (Not Detect) Ur Amphetamines Screen Not Reportable U Benzodiazepines Scrn Not Detected (Not Detect) Urine Cocaine Screen Not Detected (Not Detect) U Marijuana (THC) Screen Not Detected (Not Detect) Ethyl Alcohol < 10 mg/dL Discharge Plan Discharge Clinical Impression: Subclinical hypothyroidism Patient Disposition: Home, Self-Care Instructions: Hypothyroidism (ED) Additional Instructions: Please follow-up with your primary care physician tomorrow. If you have any worsening or new symptoms, please return to the emergency room or call 911 Your medication was sent to [address] [place] [address]. Prescriptions: New levothyroxine [Tirosint] 150 mcg capsule 150 mcg PO DAILY Qty: 30 0RF Print Language: Sinhala
--- OUTSIDE RECORDS SUMMARY | 2025-08-24 03:33 | XMS_ITS | Encounter Summary ---
Author Organization [facility] Address [address] [place] [address] Phone Care Team Providers Care Lead Nitrate Processor Name Role Phone Deborah Rg DO Primary Care Provider [phone] Aleja Price DNP, PLASTIC PRODUCTS SALES REPRESENTATIVE-C Unavailable Casandra Murphy MD, Sia Donald Primary Care Provider [phone] Encounter Details Date Type Department Care Team (Late st Contact Info) Description 08/21/2023 Pharmacy Visit [facility] [address] [address] Social History Tobacco Use Types [...] documented as of this encounter Care Teams Lead Nitrate Processor Relationship Specialty Start Date End Date Deborah Rg DO PCP - General Family Medicine 12/15/22 12/19/23 Sia Guajardo MD [address] [facility] [address] [place], [place] [id number] PCP - General Internal Medicine 12/20/23 Aleja Price DNP, PLASTIC PRODUCTS SALES REPRESENTATIVE-C [address] [place] [phone] Nurse Practitioner Family 03/29/23 documented as of this encounter
--- OUTSIDE RECORDS SUMMARY | 2025-08-24 03:33 | XMS_ITS | Encounter Summary ---
Author Organization [facility] Address [address] [place] [address] Phone Care Team Providers Care Polarity Tester Name Role Phone Deborah Rg DO Primary Care Provider [phone] [facility] Aleja Tan DNP, VIDEO CONTROL OPERATOR-C Unavailable Casandra Murphy MD, [facility] [place] Primary Care Provider [phone] Encounter Details Date Type Department Care Team (Late st Contact Info) Description 03/09/2023 Procedure Pass Endoscopic Procedural Unit at [facility] [address]th [place] [address] Social History Tobacco Use Types [...] documented as of this encounter Care Teams Polarity Tester Relationship Specialty Start Date End Date Deborah Rg DO PCP - General Family Medicine 12/15/22 12/19/23 Sia Guajardo MD [address] [facility] [address] [place], [place] [address] PCP - General Internal Medicine 12/20/23 Aleja Price DNP, VIDEO CONTROL OPERATOR-C [address] [place] [phone] Nurse Practitioner Family 03/29/23 documented as of this encounter
--- OUTSIDE RECORDS SUMMARY | 2025-08-24 03:33 | XMS_ITS | Encounter Summary ---
Author Organization [facility] Address [address] [place] [address] Care Team Providers Care Company Driver Name Role Phone None Per Patient, None Per Pt Primary Care Provi shanelle Unavailable Encounter Details Date Type Department Care Team (Late st Contact Info) Description 10/22/2019 Telephone [facility]- Surgical Oncology [address] [place] [phone] Jose Armando MD [address] [place] [phone] Social History Tobacco Use Types Packs/Day Years [...] on filedocumented in this encounter Care Teams Company Driver Relationship Specialty Start Date End Date None Per Patient, None Per Pt PCP - General 02/27/23 documented as of this encounter
--- OUTSIDE RECORDS SUMMARY | 2025-08-24 03:33 | XMS_ITS | Encounter Summary ---
Author Organization [facility] Address [address] [place] [address] Phone Care Team Providers Care Paginator Name Role Phone Deborah Rg DO Primary Care Provider [phone] Aleja Price DNP, DUKEY RIDER-C Unavailable Casandra Murphy MD, Sia Donald Primary Care Provider [phone] Encounter Details Date Type Department Care Team (Late st Contact Info) Description 08/28/2023 Pharmacy Visit [facility] [address] [address] Social History Tobacco Use Types [...] documented as of this encounter Care Teams Paginator Relationship Specialty Start Date End Date Deborah Rg DO PCP - General Family Medicine 12/15/22 12/19/23 Sia Guajardo MD [address] [facility] [address] [place], [place] [address] PCP - General Internal Medicine 12/20/23 Aleja Price DNP, DUKEY RIDER-C [address] [place] [phone] Nurse Practitioner Family 03/29/23 documented as of this encounter
--- OUTSIDE RECORDS SUMMARY | 2025-08-24 03:33 | XMS_ITS | Data Portability ---
Author Organization [place] - [facility] Address [address], [facility] [address] [place] [address] Care Team Providers Care Caving Guide Name Role Phone ANALISA BARCLAY OTHER Assessment [...] mammogram and right breast ultrasound. Sent to [facility]. [facility]wait [facility]. [facility] Not available 09/21/2019 17:30:27 Plan of Treatment Reminders Order Date Submit Date Provider Last Modified By Organization Details Last Modified Time Details Appointments None recorded. Lab None recorded. Referral None recorded. Procedures None recorded. Surgeries None recorded. Imaging MAMMO, diagnostic, digital, unilateral 2018 019 [facility], [address] [place], [address], 9 18:44:50 US, breast, unilateral 2018 019 [facility], [address] [place], [address], 9 18:42:58 Medication Orders None recorded. Patient TargetsNo targets recorded. Patient Instructions Encounter Date Encounter Id Patient Instructions Last Modified By Organization Details Last Modified Time 09/21/2019 [id number] Discussion of personal and family history, discussed possible etiologies for breast lump, what to expect for imaging and evaluation . Visit today consisted chiefly of face to face discussion with the patient regarding above listed concerns. Greater than 51% of the time was spent in this fashion total time spent face to face was 20 minutes. [facility] Not available 09/21/2019 17:32:17 Reason for Referral None Reported. Results Created Date Observation Date Name Description Value Unit Range Abnormal Flag Note LastModifiedBy Organization Detail LastModifiedTime 09/24/20 19 09/24/2019 annel YOON, unila teral No observ ation record ed. [facility] [address] [place], [address], 09/27/2019 12:43:08 09/24/20 19 09/24/2019 MAMMO , diagn ostic , digit al, unila teral No observ ation record ed. [facility] [address] [place], [address], 09/27/2019 12:43:08 09/25/20 19 09/25/2019 biops y, annel t, w/ ultra sound steven nce (PROC ) No observ ation record ed. [facility] [address] [place], [address], 09/27/2019 14:46:16 10/01/20 19 09/25/2019 imagi ng/eugenie edmond t No observ ation record ed. [facility] [address] Jamari [address] [place] [address], [address], 10/04/2019 13:07:05 Result Notes None recorded. Problems Name Problem SNOMED Code Status Onset Date Resolution Date Notes Provider Name and Address Organization Details Recorded Time Malignant neoplasm of female breast 106574790 Active 2018 Right breast cancer Sho Chick null, [place] - [facility] 0 12:37:09 Family history of breast cancer 230152936 Active 2018 Mother Dx age 53 Sho [facility] 9 17:10:59 Breast lump 38270769 Completed 201811/28/2019 Sho Felton [facility] 0 12:37:14 Problem Notes None recorded. Procedures Surgical History Date Name Laterality Status Provider Name and Address Organization Details Recorded Time 3 Removal of thyroid completed [facility] 09/21/2019 17:00:36 Imaging Results None recorded. Procedure Notes None recorded. Medical Equipment None Reported. Allergies Allergen ID Allergen Name Allergen Category Reaction Reaction Severity Criticality Documentation Date Start Date Code Code System Note Provider Name and Address Organization Details Recorded Time 75731 morphine medicatio n seizure Not available Not available 09/21/2019 7052 RxNorm [facility] 9 16:53:50 Medications Name Sig Start [...] Updated DateTime 09/21/2019 165.1 cm 37.1 kg/m2 947469.82 g 108/68 mm[Hg] [facility] 09/21/2019 16:51:51 Social History Question Answer Notes LastModified by Organizat ion Details LastModified Time Tobacco Smoking Status Former Smoker quit 2010 [facility] 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 09/21/2019 16:51:59 Hep A, adult 0 completed Raisa Alvarado null, [facility] 09/21/2019 16:51:59 Vaccinia (smallpox, mpox), live 0 completed Raisa Alvarado null, [facility] 09/21/2019 16:51:59 Influenza, split virus, quadrivalent, PF 5 completed Not Available [facility] 11/03/2019 02:13:10 HPV, unspecified formulation 0 completed Raisa Alvarado null, [facility] 09/21/2019 16:51:59 Hep B, adult 0 completed Raisa Alvarado null, [facility] 09/21/2019 16:51:59 zoster live 0 completed Raisa Alvarado null, [facility] 09/21/2019 16:51:59 Past Encounters Encounter ID Performer Location Encounter Start Date Encounter Closed Date Diagnosis/Indication Diagnosis SNOMED-CT Code Diagnosis ICD10 Code Diagnosis IMO Codes Diagnosis Note [id number] Sho Felton, [facility] [address] [facility], [address] [address] 09/21/2019 16:28:13 09/21/2019 17:33:39 Breast lump 07222132 N63.12 Family his tory of breast cancer 589575847 Z80.3 Health Concerns Section Related Observation LastModified by Organization Detai ls LastModified Time None Recorded Concern Status LastModified by Organization Details LastModified Time None Recorded Advance Directives Directive None Recorded Payers Insurance Date Sequence Insurance Name Policy Number Policy Mitchell Covered Member ID Mitchell Member ID Guarantor Name 09/21/2019 1 [facility] [id number] Luigi Raymon [id number] Astrid Magallanes Notes Date Note Type Note [...] as noted in the HPI Sho Felton [facility], [place] - [facility] 09/21/2019 17:32:43 OBGyn Episode Ob Episode Information Episode Created Date Number of Fetuses Patient Bloodtype Patient rh Status Prepregnancy Weight lbs Domestic Partner Domestic Partner Phone Father Name Hack Driver Status 09/21/20 19 1 CLOSED Fetus Data First Name Last Name Admitted to NICU Weight (g) Sex Living Outcome Pediatric Complications Fetus ID Race Codes Race Delivery Type , Spontane ous 23140 Vernon Calculation Initial Vernon Date Initial Exam [...] Domestic Partner Domestic Partner Phone Father Name Hack Driver Status 09/21/20 19 1 CLOSED Fetus Data First Name Last Name Admitted to NICU Weight (g) Sex Living Outcome Pediatric Complications Fetus ID Race Codes Race Delivery Type , Spontane ous 90104 Vernon Calculation Initial Vernon Date Initial Exam [...]
--- OUTSIDE RECORDS SUMMARY | 2025-08-24 03:33 | XMS_ITS | Encounter Summary ---
Author Organization [facility] Address [address] [address] Care Team Providers Care Equipment Processer Storage Name Role Phone Unavailable Primary Care Provider Unavailabl e Encounter Details Date Type Department Care Team (Late st Contact Info) Description 02/25/2023 Lab Requisition [place], [place] [address] [place] [place] [address] [place] [address] [place] [address] Castleman disease (CMS/HCC); Malignant neoplasm [...] PDT) Case Report Surgical Pathology Report Case: [id number] Authorizing Provider: Anny Kamara MD Collected: 02/24/2023 08:52 AM Ordering Location: [facility] - Received: 02/25/2023 03:06 PM [place], [place] Pathologist: Gayathri Anand MD Specimen: Blood, For Flow Cytometry 3 12:38 PM [facility] Final Diagnosis Peripheral blood flow cytometry: Relatively increased granulocytes. Flow cytometry comment: No immunophenotypic evidence of a lymphoproliferative disorder, acute leukemia or circulating blasts is identified. Myeloproliferative neoplasms and myelodysplastic syndromes may not show antigenic abnormalities on myeloid cells and cannot be ruled out by flow cytometry. Please correlate the result with other pertinent laboratory data and clinical information. 3 12:38 PM [facility] at 1238 PDT Clinical Information Castleman disease (HCC) Malignant neoplasm of thyroid gland (HCC) Malignant neoplasm of unspecified site of unspecified female breast (HCC) 3 12:38 PM [facility] Gross Description A. Blood 2 smears are received. Submitted peripheral blood to [facility] for flow cytometry. 3 12:38 PM [facility] Microscopic Description CBC performed on 02/24/2023 . WBC 24.76 K/uL RBC 4.95 M/uL Hgb 15.2 g/dL Hct 46.2 % MCV 93.3 fL RDW 13.2 % Platelets 30.7 K/uL Neutrophils 22.06 K/uL Lymphocytes 1.31 K/uL Monocytes 0.73 K/uL Eosinophils 0.0 K/uL Basophils 0.09 K/uL NRBC 0.0 % RET ND % 3 12:38 PM [facility] Flow Cytometry Summary Flow cytometric analysis was performed at [facility] in [place], [place]. The report states below. Flow Diagnosis: [...] CD34, CD38, CD45, CD56, CD64, CD117, HLA-DR, [place], Lambda (24 Markers ) 12:38 PM PDT [facility] BLOOD SPECIMEN / Unknown 02/24/2023 8:52 AM PDT 02/25/2023 3:06 PM PDT us Anny Kamara MD PATHOLOGY ORDERABLES Final Result [facility] [address] [place] [address] documented in this encounter Visit Diagnoses Diagnosis Castleman disease (CMS/HCC) Enlargement of lymph nodes Malignant neoplasm of thyroid gland (CMS/HCC) Malignant neoplasm of thyroid gland Malignant neoplasm of unspecified site of unspecified female breast (CMS/HCC) documented in this encounter
--- OUTSIDE RECORDS SUMMARY | 2025-08-24 03:33 | XMS_ITS | Encounter Summary ---
Author Organization [facility] Address [address] [place] [address] Phone Care Team Providers Care Forklift Mechanic Name Role Phone RgDeborah garcia Gilma VALENTINE Primary Care Provider [phone] Aleja Price DNP, POWDER MONKEY-C Unavailable Casandra Murphy MD, Sia Odilon Primary Care Provider [phone] Encounter Details Date Type Department Care Team (Late st Contact Info) Description 08/15/2023 Transcribe Orders [place] [facility] [address] [facility] [address] [place] [address] Aleja Price DNP, POWDER MONKEY-C [address] [place] [address] Social History Tobacco Use Types [...] 09/01/2023 Patient Name: Astrid Magallanes Order #: [id number] Date of : 1985 CSN: [id number] Admit Type: Outpatient Room: Endo 2 Procedure: Colonoscopy Indications: Chronic diarrhea Providers: DORIS LANZA MD (Doctor), EDGARDO MICHAEL RN (Nurse), JULIANO ALBA Flight Data Technician (Flight Data Technician), Janak Nash MD Referring MD: ALEJA TAN DNP,POWDER MONKEY-C Requesting Provider: Medicines: Midazolam 6 mg IV, [...] was re-assessed after the procedure. The Olympus CF-[id number] Colonoscope #[id number] was introduced through the anus and advanced [...] was done by the physician, nurse and research laboratory technician using the patient's name and date. The appendiceal orifice and ileocecal valve appeared normal. The colon (entire examined portion) appeared normal. Biopsies for histology were taken with a cold forceps from the right colon and left colon for evaluation of microscopic colitis. Verification of patient identification for the specimen was done by the physician, nurse and research laboratory technician using the patient's name and date. [...] 0 Note Initiated On: 09/01/2023 3:07 PM Aleja Tan DNP, POWDER MONKEY-C ENDOSCOPY EC Final Result documented in this encounter Visit Diagnoses Diagnosis Bowel habit changes- Primary Other symptoms involving digestive system documented in this encounter Additional Health Concerns Assessment Noted Time PHQ-2 Depression Total Score: 6 12/16/19 23 8:00 AM PDT documented as of this encounter Care Teams Forklift Mechanic Relationship Specialty Start Date End Date Deborah Rg DO PCP - General Family Medicine 12/15/22 12/19/23 Sia Guajardo MD [address] [place], [place] [address] PCP - General Internal Medicine 12/20/23 Aleja Price DNP, POWDER MONKEY-C [address] [place] [address] Nurse Practitioner Family 03/29/23 documented as of this encounter
--- OUTSIDE RECORDS SUMMARY | 2025-08-24 03:33 | XMS_ITS | Encounter Summary ---
Author Organization [facility] Address [address] [place] [address] Phone Care Team Providers Care Telecommunicator Name Role Phone Deborah Rg DO Primary Care Provider [phone] Aleja Price DNP, DEVULCANIZER TENDER-C Unavailable Casandra Murphy MD, Sia Odilon Primary Care Provider [phone] Encounter Details Date Type Department Care Team (Late st Contact Info) Description 08/15/2023 Procedure Pass [facility] at [facility] [address] [facility] & [address] [address] Social History Tobacco Use Types [...] documented as of this encounter Care Teams Telecommunicator Relationship Specialty Start Date End Date Deborah Rg DO PCP - General Family Medicine 12/15/22 12/19/23 Sia Guajardo MD [address] [facility] [address] [place], [place] [id number] PCP - General Internal Medicine 12/20/23 Aleja Price DNP, DEVULCANIZER TENDER-C [address] [place] [address] Nurse Practitioner Family 03/29/23 documented as of this encounter
--- OUTSIDE RECORDS SUMMARY | 2025-08-24 03:33 | XMS_ITS | Encounter Summary ---
Author Organization [facility] Address [address] [place] [address] Phone Care Team Providers Care Electrical Drafter Name Role Phone Deborah Rg DO Primary Care Provider [phone] [facility] Aleja Tan DNP, WRITER EDITOR-C Unavailable Casandra Murphy MD, Sia Odilon Primary Care Provider [phone] Encounter Details Date Type Department Care Team (Late st Contact Info) Description 07/20/2023 Procedure Pass [facility] Diagnostic Imaging Services at [address] [address] Social History Tobacco Use Types [...] documented as of this encounter Care Teams Electrical Drafter Relationship Specialty Start Date End Date Deborah Rg DO PCP - General Family Medicine 12/15/22 12/19/23 Sia Guajardo MD [address] [facility] [address] [place], [place] [id number] PCP - General Internal Medicine 12/20/23 Aleja Price DNP, WRITER EDITOR-C [address] [place] [address] Nurse Practitioner Family 03/29/23 documented as of this encounter
--- OUTSIDE RECORDS SUMMARY | 2025-08-24 03:33 | XMS_ITS | Patient Health Record ---
Author Organization [facility] Address [address] [facility] [address] [place] [address] Care Team Providers Care Cane Packer Name Role Phone Lizette Guajardo Primary Care Provider Unavailab Tenzin Rodrigues Unavailable [phone] Rosie Faria Unavailable Unavailable Migration, Provider Unavailable [...] Vaccine Route Administration Date Status Comme nts Pneumococcal conjugate PCV 13 Unknown 11/19/2019 Others undefined; Moderna Covid-19 Vaccine 1st dose Unknown 01/27/2021 Ot hers undefined; Moderna Covid-19 Vaccine 1st dose Unknown 02/17/2021 Ot hers undefined; Social History Social History Additional Details Category Social Info Options Details Migrated Social History Migrated Social History smoking status : Former smoker Problems Problem Type SNOMED Code ICD Code Onset Dates Problem Status W/U Status Risk Notes Problem Malignant neoplasm of female breast (131662508) Malignant neoplasm of unspecified site of unspecified female breast (C50.919) Active confirmed Problem Malignant neoplasm of thyroid gland (152699429) Malignant neoplasm of thyroid gland (C73) Active confirmed Problem Multiple endocrine neoplasia, 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) Active confirmed Problem Overweight (011643861) Overweight (E66.3) Active confirmed Notes::Ad ult patient under 65 with BMI over 25.; Problem Anxiety disorder (899356671) Other specified anxiety disorders (F41.8) Active confirmed Problem Essential hypertension (18794087) Essential (primary) hypertension (I10) Active confirmed Problem Raynaud's disease (649829563) Raynaud's syndrome without gangrene (I73.00) Active confirmed Problem Allergic arthritis (35504488) Other specified arthritis, unspecified site (M13.80) Active confirmed Problem Pain of knee region (finding) (6573692257) Pain in unspecified knee (M25.569) Active confirmed Problem Arthralgia of the ankle and/or foot (112919466) Pain in unspecified ankle and joints of unspecified foot (M25.579) Active confirmed Problem Systemic lupus erythematosus (98392947) Other forms of systemic lupus erythematosus (M32.8) Active confirmed Problem Dermatomyositis (572914584) Dermatopolymyosi tis, unspecified, organ involvement unspecified (M33.90) Active confirmed Problem Epistaxis (268800120) Epistaxis (R04.0) Active confirmed Problem Eruption of skin (447497804) Rash and other nonspecific skin eruption (R21) Active confirmed Problem Generalized enlarged lymph nodes (456539216) Generalized enlarged lymph nodes (R59.1) Active confirmed Problem Lymphadenopathy (39404022) Enlarged lymph nodes, unspecified (R59.9) Active confirmed Problem High antibody titer (951673970) Raised antibody titer (R76.0) Active confirmed Problem Tuberculosis screening (869731168) Encounter for screening for respiratory tuberculosis (Z11.1) Active confirmed Problem Viral screening (507949654) Encounter for screening for other viral diseases (Z11.59) Active confirmed Problem Long-term current use of drug therapy (584343977) Other senior care (current) drug therapy (Z79.899) Active confirmed Encounters Encounter Location Date Provider Diagnosis [facility] [address] [facility] [address] [place] [address] 11/24/2024 Provider Migration [facility] [address] [facility] [address] [place] [address] 11/25/2024 Provider Migration Plan Of Treatment No Information Insurance Providers Payer Name Payer Address Payer Phone Subscriber Number Group Number Insured Name Patient Relationship to Insured Coverage Start Date Coverage End Date [facility] [address] [address] [place] [address] [id number] Astrid Lobo Self - patient is the insured
--- OUTSIDE RECORDS SUMMARY | 2025-08-24 03:33 | XMS_ITS | Encounter Summary ---
Author Organization [facility] Address [address] [place] [address] Phone Care Team Providers Care Clerk General Name Role Phone No Pcp Per Patient Primary Care Provider Unavail able Deborah Rg DO Primary Care Provider [phone] Aleja Price DNP, PATIENT REGISTRATION SUPERVISOR-C Unavailable Casandra Murphy MD, Sia Donald Primary Care Provider [phone] Encounter Details Date Type Department Care Team (Late st Contact Info) Description 09/22/2022 Document-Scanned [facility] Department [place] [facility] Unknown . Social History Tobacco Use Types [...] on filedocumented in this encounter Care Teams Clerk General Relationship Specialty Start Date End Date No Pcp Per Patient NO PCP PER PATIENT PCP - General 10/01/19 12/14/22 Deborah Rg DO NO PCP PER PATIENT PCP - General Family Medicine 12/15/22 12/19/23 Sia Guajardo MD [address] [facility] [address] [place], [place] [address] PCP - General Internal Medicine 12/20/23 Aleja Price DNP, PATIENT REGISTRATION SUPERVISOR-C [address] [place] [address] Nurse Practitioner Family 03/29/23 documented as of this encounter
--- OUTSIDE RECORDS SUMMARY | 2025-08-24 03:33 | XMS_ITS | Clinical Summary ---
Author Organization [email or web address] Address [address] [place] [address] Care Team Providers Care Harness Racing Handicapper Name Role Phone None Per Patient, None [...] 2) 2006 10/03/1989 HPV Vaccine (1 - Risk 3-dose SCDM series) 2014 HPV/Cotest 2017 Cervical [...] ORDERABLES Final Resul t Performing Organization Address [facility] de Phone Number [facility] [address] [place] [address] * RPR - Rapid Plasma Reagin (02/06/2015 10:34 AM PDT) Rapid Plasma Reagin Non-Reacti ve Non-Reacti [facility] Blood specimen (specimen) 02/06/2015 10:34 AM PDT 02/06/2015 1:10 PM PDT Anya Clark MD CHEMISTRY ORDERABLES Final Resul t Performing Organization Address [facility] de Phone Number [facility] [address] [address] * Pap Smear Report (02/06/2015 12:01 AM PDT) 02/06/2015 12:0 1 AM PDT Narrative [facility] - 02/11/2015 2:35 PM PDT SUSY COSBY Age: 29 years Med Nbr: [id number] ONYX CHIP TERRAZZO WORKER CYTOLOGY Collection Date: 02/06/2015 Case #: [id number] DIAGNOSIS Negative for intraepithelial lesion or malignancy Date Verified: 11-FEB-2015 14:35 Interpreted by: NILESH GARCIAS, CT(ASCP) SDV/SDV Specimen Liquid Base (Thin Prep Pap) Adequacy Satisfactory for evaluation. No endocervical/transformation zone components present. 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 Pathology processing performed at [facility], [address] [place] [address], [place] unless otherwise stated Cytology and HPV technical and professional services performed at [facility], [address] [place] [address], [place] unless otherwise stated. Professional Services Provided by [facility], [address] [place] [address], [place] unless otherwise stated Anya Clark MD PATHOLOGY [place]AB[place] [address] from Last 3 Months or Most Recently Relevant to Health Maintenance Insurance Advance Directives Documents on File Type Date Recorded Patient Brass Roller Expl anation Advance/Healthcare Directive 02/27/2023 4:44 PM Advance/Healthcare Directive 11/09/2019 GIVE AD Advance/Healthcare Directive (Vynca) 12/01/2016 Care Teams Harness Racing Handicapper Relationship Specialty Start Date End Date None Per Patient, None Per Pt PCP - General 02/27/23
--- OUTSIDE RECORDS SUMMARY | 2025-08-24 03:33 | XMS_ITS ---
Author Organization [facility] Address [address] [place] [address] Care Team Providers Care Hogshead Stripper Name Role Phone None Per Patient, None [...] Lifetime Dose Automatic Entry Manual Entr y [id number] 30.7 mSv 30.7 mSv 0 mSv Total DLP 1,875 mGy-cm 1,875 mGy-cm 0 mGy-cm CTDIvol Max 53.5 mGy 53.5 mGy 0 mGy CTDIvol Min 53.5 mGy 53.5 mGy 0 mGy
--- OUTSIDE RECORDS SUMMARY | 2025-08-24 03:33 | XMS_ITS | Encounter Summary ---
Author Organization [facility] Address [address] [place] [address] Phone Care Team Providers Care Seamstress Fitter Name Role Phone Ifrah Deborah Gilma VALENTINE Primary Care Provider [phone] Aleja Price DNP, ECOLOGICAL RISK ASSESSOR-C Unavailable Casandra Murphy MD, [facility] Primary Care Provider [phone] Encounter Details Date Type Department Care Team (Late st Contact Info) Description 03/09/[address] [facility] [address] [facility] & [address] [address] Transcribe Encounter, Provider, [address] [place] [address] Social History Tobacco Use Types Packs/Day Years [...] 03/24/2023 Patient Name: Astrid Magallanes Order #: [id number] Date of : 1985 CSN: [id number] Admit Type: Outpatient Room: GI 1 Procedure: Upper GI endoscopy Indications: Nausea Providers: RADHA CASAS MD (Doctor), REVA DOLAN RN (Nurse), SHAWN ROLAND, Facility Manager (Facility Manager) Referring MD: ALEJA TAN DNP,ECOLOGICAL RISK ASSESSOR-C Requesting Provider: Medicines: Fentanyl 125 micrograms IV, [...] after the procedure. The Olympus [id number]-[id number] Endoscope #[id number] was introduced through the mouth, and advanced [...] to: DEBORAH RG DO Aleja Tan DNP, ECOLOGICAL RISK ASSESSOR-C ENDOSCOPY EC Final Result documented in this encounter Visit Diagnoses Diagnosis Nausea and vomiting, unspecified vomiting type- Primary RUQ pain Abdominal pain, right upper quadrant documented in this encounter Additional Health Concerns Assessment Noted Time PHQ-2 Depression Total Score: 6 12/16/19 23 8:00 AM PDT documented as of this encounter Care Teams Seamstress Fitter Relationship Specialty Start Date End Date Deborah Rg DO PCP - General Family Medicine 12/15/22 12/19/23 Sia Guajardo MD [address] [facility] [address] [place] [address] PCP - General Internal Medicine 12/20/23 Aleja Price DNP, ECOLOGICAL RISK ASSESSOR-C [address] [place] [phone] Nurse Practitioner Family 03/29/23 documented as of this encounter
--- OUTSIDE RECORDS SUMMARY | 2025-08-24 03:33 | XMS_ITS | Clinical Summary ---
Author Organization [facility] Address [address] [address] Care Team Providers Care Financial Report Service Sales Agent Name Role Phone Unavailable Primary Care Provider Unavailabl e Social History Tobacco Use Types Packs/Day Years Used Date Smoking Tobacco: Never Assessed Comments Unknown Sex and Gender Information Value Date Recorded Sex Assigned at Not on file Legal Sex Female 2:58 PM PDT Gender Identity Not on file Sexual Orientation Not on file Plan of Treatment Not on file Insurance [place] [id number]
--- OUTSIDE RECORDS SUMMARY | 2025-08-24 03:33 | XMS_ITS | Encounter Summary ---
Author Organization [facility] Address [address] [place] [address] Care Team Providers Care Camp Cook Name Role Phone None Per Patient, None Per Pt Primary Care Provi shanelle Unavailable Reason for Visit * Reason Onset Date Comments Other (see comments) 08/04/2023 pathology Encounter Details Date Type Department Care Team (Late st Contact Info) Description 08/04/2023 Telephone [facility] Surgical Oncology [facility] [address] [place] [address] Jose Armando MD [address] [place] [address] Other (see comments) (pathology) Social [...] she was told by a provider in [place] one of her samples came back cancerous. Appointment offered? YES Rescheduled 09/08[facility] [facility]: YES. patient stated she would message Dr. Armando documented in this encounter Plan of Treatment Not on file documented as of this encounter Visit Diagnoses Not on filedocumented in this encounter Care Teams Camp Cook Relationship Specialty Start Date End Date None Per Patient, None Per Pt PCP - General 02/27/23 documented as of this encounter
--- OUTSIDE RECORDS SUMMARY | 2025-08-24 03:34 | XMS_ITS | Clinical Summary ---
Author Organization [facility] Address [address] [place] [address] [place] [address] Phone Care Team Providers Care Vortex Operator Name Role Phone Pcp, Unknown Primary Care [...] 2:53 AM EDT Emergency [facility] [address] [place] [address] Aron Griggs MD Discharge Disposition: Home or Self Care 07/17/2025 Procedure Pass [facility], [facility] [address] [place] [address] from Last 3 Months Social History Tobacco [...] 07/08/2008 INFLUENZA VACCINE (#1) 2025 COVID-19 VACCINE ( - 2024-2 6 season) 2025 SCREENING FOR DIABETES 07/17/2028 [...] STAT 07/17/2025 9:56 PM EDT C-REACTIVE PROTEIN (CRP) Routine 07/17/2025 8:27 PM EDT HCG, SERUM QUALITATIVE STAT 07/17/2025 8:27 PM EDT LIPASE STAT 07/17/2025 8:27 PM EDT LFTS (HEPATIC PANEL) STAT 07/17/2025 8:27 PM EDT BASIC METABOLIC PANEL (BMP) STAT 07/17/2025 8:27 PM EDT CBC AND DIFFERENTIAL STAT 07/17/2025 8:27 PM EDT URINALYSIS WITH REFLEX TO URINE CULTURE STAT 07/17/2025 8:19 PM EDT [...] clinician's provided indication for this examination in Epic: * Abdominal pain, acute, nonlocalized TECHNIQUE: Multidetector-row [...] clinician's provided indication for this examination in Epic: *Abdominal pain, acute, nonlocalized TECHNIQUE: Multidetector-row CT [...] BPM [facility] Atrial Rate 85 BPM [facility] CA Interval 120 ms [facility] QRS Duration 84 ms [facility] QT Interval 360 ms [facility] QTC Interval 428 ms [facility] P Gilbert 41 degrees [facility] R Wave Gilbert 48 degrees [facility] T Wave Gilbert 43 degrees [facility] 07/17/2025 9:56 PM EDT [...] PM EDT) HCG, QUALITATIVE Negative Negative IU/L [facility] Blood 07/17/2025 8:27 PM EDT 07/17/2025 8:32 PM EDT [facility] LAB BLOOD BKR ORDERABLES Fin al Result Performing Organization Address [facility] Co de Phone Number [address] [address] * LFTs (hepatic panel) (07/17/2025 8:27 PM EDT) ALKALINE PHOSPHATASE 106 39 - 117 U/L [facility] TOTAL BILIRUBIN 0.3 0.0 - 1.2 mg/dL [facility] DIRECT BILIRUBIN 0.1 0.0 - 0.2 mg/dL [facility] Bilirubin (Indirect) NOT CALCULATED 0 - 1.5 mg/dL [facility] AST 28 0 - 37 U/L [facility] ALT 20 0 - 40 U/L [facility] TOTAL PROTEIN 7.8 6.5 - 8.0 g/dL [facility] ALBUMIN 4.4 3.9 - 4.8 g/dL [facility] GLOBULIN 3.4 1 - 4.8 g/dL [facility] A/G Ratio 1.29 1.00 - 4.80 RATIO [facility] Blood 07/17/2025 8:27 PM EDT 07/17/2025 8:32 PM EDT [facility] LAB BLOOD BKR ORDERABLES Fin al Result Performing Organization Address City/[facility]/ZIP Co de Phone Number [address] [address] * CBC and differential (07/17/2025 8:27 PM EDT) WBC 6.28 4.00 - 11.00 K/uL [facility] RBC 4.66 4.00 - 5.20 M/uL [facility] HGB 14.1 12.0 - 16.0 g/dL [facility] HCT 41.2 36.0 - 46.0 % [facility] PLT 322 150 - 450 K/uL [facility] MCV 88.4 80.0 - 100.0 fL [facility] MCH 30.3 27.0 - 31.0 pg [facility] MCHC 34.2 32.0 - 36.0 g/dL [facility] RDW 12.5 11.5 - 14.5 % [facility] MPV 11.5 8.4 - 12.0 fL [facility] NRBC 0.00 0.00 /100 WBCs [facility] ABSOLUTE NRBC 0.00 0.00 K/uL [facility] DIFF METHOD Auto [facility] NEUTS 61.7 48.0 - 76.0 % [facility] LYMPHS 25.5 18.0 - 41.0 % [facility] MONOS 10.8 4.0 - 11.0 % [facility] EOS 1.0 0.0 - 5.0 % [facility] BASOS 0.5 0.0 - 1.5 % [facility] Granulocytes, immature (%) 0.5 0.0 - 0.9 % [facility] ABSOLUTE NEUTS 3.88 1.92 - 7.60 K/uL [facility] ABSOLUTE LYMPHS 1.60 0.72 - 4.10 K/uL [facility] ABSOLUTE MONOS 0.68 0.16 - 1.10 K/uL [facility] ABSOLUTE EOS 0.06 0.00 - 0.50 K/uL [facility] ABSOLUTE BASOS 0.03 0.00 - 0.15 K/uL [facility] Granulocytes, immature 0.03 0.00 - 0.09 K/uL [facility] Blood 07/17/2025 8:27 PM EDT 07/17/2025 8:32 PM EDT us Marine Azar PA-C LAB BLOOD BKR ORDERABLES Fin al Result [facility] [address] [place] [address] * C-Reactive Protein (07/17/2025 8:27 PM EDT) Pathologist [facility] C REACTIVE PROTEIN 3.4 0.0 - 4.0 mg/L [facility] 07/17/2025 8:27 PM EDT 07/17/2025 8:32 PM EDT Marine MORRIS-C LAB BLOOD BKR ORDERABLES Fin al Result Performing Organization Address City/[facility]/ZIP Co de Phone Number [address] [address] * Lipase (07/17/2025 8:27 PM EDT) LIPASE 36 16 - 63 U/L [facility] Blood 07/17/2025 8:27 PM EDT 07/17/2025 8:32 PM EDT [facility] LAB BLOOD BKR ORDERABLES Fin al Result Performing Organization Address City/[facility]/ZIP Co de Phone Number [address] [address] * (ABNORMAL) Basic metabolic panel (07/17/2025 8:27 PM EDT) SODIUM 138 133 - 146 mmol/L [facility] CHLORIDE 102 96 - 108 mmol/L [facility] POTASSIUM 4.2 3.3 - 5.1 mmol/L [facility] CO2 24 21 - 35 mmol/L [facility] BUN 9 6 - 19 mg/dL [facility] CREATININE 0.80 0.5 - 1.5 mg/dL [facility] GLUCOSE 108(H) 70 - 99 mg/dL [facility] CALCIUM 10.1 8.4 - 10.3 mg/dL [facility] EGFR 97 >59 mL/min/1.7 3m2 [facility] Comment:Estimated glomerular filtration rate calculated using the CKD-EPI refit equation. ANION GAP 16 10 - 20 mmol/L [facility] Blood 07/17/2025 8:27 PM EDT 07/17/2025 8:32 PM EDT Marine Azar PA-C LAB BLOOD BKR ORDERABLES Fin al Result Performing Organization Address City/[facility]/ZIP Co de Phone Number [address] [address] * (ABNORMAL) Urinalysis w/reflex Urine Culture (07/17/2025 8:19 PM EDT) COLOR STRAW(A) Yellow [facility] CLARITY Clear [facility] GLUCOSE Negative Negative [facility] BILI Negative Negative [facility] KETONES Negative Negative [facility] SPECIFIC GRAVITY <1.005 1.005 - 1.030 [facility] BLOOD Negative Negative [facility] PH 6.0 5.0 - 8.0 [facility] Protein-UA Negative Negative [facility] NITRITE Negative Negative [facility] Leukocyte esterase, ur Negative Negative [facility] Urine (Urine) 07/17/2025 8:1 9 PM EDT 07/17/2025 8:28 PM EDT Marine Azar PA-C LAB URINE ORDERABLES Final R esult Performing Organization Address City/[facility] Co de Phone Number [address] [address] from Last 3 Months Insurance [facility] [place] [facility] [place] [facility] * Guarantor: Astrid Magallanes Account Type Relation to Patient Date of Phone Billing Address Personal/Family Self 1985 [address] [place] [address], [place] [address] * Guarantor: Astrid Magallanes Account Type Relation to Patient Date of Phone Billing Address Personal/Family Self [address] [place] [address], [place] [address] [place] [address] [employer] Care Teams Vortex Operator Relationship Specialty Start Date End Date Pcp, Unknown PCP - General 07/17/25 Additional Source Comments The information contained in this document represents components of the legal health record. It is not the complete legal health record.[facility]
--- OUTSIDE RECORDS SUMMARY | 2025-08-24 03:34 | XMS_ITS | Encounter Summary ---
Author Organization [facility] Address [address] [place] [address] Phone Care Team Providers Care Wall Scraper Name Role Phone Aleja Price DNP, PUMPER BREWERY-C Unavailable Casandra Murphy MD, Sia Donald Primary Care Provider [phone] Encounter Details Date Type Department Care Team (Late st Contact Info) Description 02/08/2025 Home Infusion CPR+ UNKNOWN DEPARTMENT [address] [place] [address] Other, Faculty Social History Tobacco Use Types [...] documented as of this encounter Care Teams Wall Scraper Relationship Specialty Start Date End Date Sia Guajardo MD [address] [facility] [address] [place], [place] [id number] PCP - General Internal Medicine 12/20/23 Aleja Price DNP, PUMPER BREWERY-C [address] [place] [address] Nurse Practitioner Family 03/29/23 documented as of this encounter
--- OUTSIDE RECORDS SUMMARY | 2025-08-24 03:34 | XMS_ITS | Encounter Summary ---
Author Organization [facility] Address [address] [place] [address] Phone Care Team Providers Care Sterile Processing Manager Name Role Phone No Pcp Per Patient Primary Care Provider Unavail able Deborah Rg DO Primary Care Provider [phone] Aleja Price DNP, CRIMINAL ATTORNEY-C Unavailable Casandra Murphy MD, Sia Donald Primary Care Provider [phone] Encounter Details Date Type Department Care Team (Late st Contact Info) Description 12/06/2022 Documentation Dermatology Medical at [facility], Building [address] [facility] [place] [address] Rosie Faria MD [address] [place] [address] Social History Tobacco Use Types [...] on filedocumented in this encounter Care Teams Sterile Processing Manager Relationship Specialty Start Date End Date No Pcp Per Patient NO PCP PER PATIENT PCP - General 10/01/19 12/14/22 Deborah Rg DO NO PCP PER PATIENT PCP - General Family Medicine 12/15/22 12/19/23 Sia Guajardo MD [address] [facility] [address] [place], [place] [phone] PCP - General Internal Medicine 12/20/23 Aleja Price DNP, CRIMINAL ATTORNEY-C [address] [place] [address] Nurse Practitioner Family 03/29/23 documented as of this encounter
--- OUTSIDE RECORDS SUMMARY | 2025-08-24 03:34 | XMS_ITS | Clinical Summary ---
Author Organization [facility] Address [address] [place] [address] Care Team Providers Care Multimedia Educational Specialist Name Role Phone Truman Hunt MD Primary Care Provider [phone] Allergies Active Allergy Reactions Criticality Noted Date [...] C Screening Completed 09/02/2022 , 09/02/2022 Insurance [facility] Care Teams Multimedia Educational Specialist Relationship Specialty Start Date End Date Truman Hunt MD [address] [facility] [address] [place], [place] [id number] PCP - General Internal Medicine 01/18/23 Additional Source Comments Chart notes may be sent separately from this document.[facility]
--- OUTSIDE RECORDS SUMMARY | 2025-08-24 03:34 | XMS_ITS | Encounter Summary ---
Author Organization [facility] Address [address] [place] [address] Care Team Providers Care Birthing Nurse Name Role Phone None Per Patient, None Per Pt Primary Care Provi shanelle Unavailable Reason for Visit * Reason Onset Date Comments Other (see comments) 10/24/2019 DX code Encounter Details Date Type Department Care Team (Late st Contact Info) Description 10/24/2019 Telephone [facility]- Surgical Oncology [address] [place] [address] [phone] Jose Armando MD [address] [place] [address] [facility] [address] [place] [address] Other (see comments) (DX code) [...] on filedocumented in this encounter Care Teams Birthing Nurse Relationship Specialty Start Date End Date None Per Patient, None Per Pt PCP - General 02/27/23 documented as of this encounter
--- OUTSIDE RECORDS SUMMARY | 2025-08-24 03:34 | XMS_ITS | Encounter Summary ---
Author Organization [facility] Address [address] [place] [address] Phone Care Team Providers Care Dryer Operator Name Role Phone Aleja Price DNP, PARKER Unavailable Casandra Murphy MD, [facility] Primary Care Provider [phone] Reason for Visit * Reason Onset Date Comments Other 02/01/2024 Care Coordinatio n Encounter Details Date Type Department Care Team (Late st Contact Info) Description 02/01/2024 Telephone [facility], [address] [address] Aleja Price DNP, MONITORING SPECIALIST-C [address] [place] [address] Other (Care Coordination) Social History [...] recommendations sent to pt. Upcoming appt with [facility] JACKIE CHANDLER on 02/17/24. ----- Message ----- [...] for call: asking for call back from [facility] for Care Coordination, requesting call back today ortomorrow because Dr Guajardo will be out of the office for an extended period of time after tomorrow. Provider / Specialty: [facility]/GI Call back number confirmed?: yes Best call back number / ext: [phone] / noted under contact or phone tab. Caller would like a call back to discuss. documented in this encounter Plan of Treatment Not on file documented as of this encounter Visit Diagnoses Not on filedocumented in this encounter Additional Health Concerns Assessment Noted Time PHQ-2 Depression Total Score: 6 12/16/19 23 8:00 AM PDT documented as of this encounter Care Teams Dryer Operator Relationship Specialty Start Date End Date Sia Guajardo MD [address] [address] PCP - General Internal Medicine 12/20/23 Aleja Price DNP, MONITORING SPECIALIST-C [address] [place] [phone] Nurse Practitioner Family 03/29/23 documented as of this encounter
--- OUTSIDE RECORDS SUMMARY | 2025-08-24 03:34 | XMS_ITS | CCD ---
Author Name Interface, [id number] lity Address [address] [place] [address] Organization [facility] Address [address] [place] [address] Care Team Providers Care Bill Cutter Name Role Phone Anh COFFMAN, Anny Botello Unavailable Unavailabl e Allergies and Adverse Reactions Medication/Group Name Reaction Severity Date morphine Seizure 01/11/2025 levothyroxine Vomiting 01/11/2025 adhesive Mild 01/11/2025 Care Plan Date Type Value 10/30/2025 APPOINTMENT CBCHELEN MD OVERD UE 6M 10/30/2025 APPOINTMENT CBCHELEN MD OVERD UE 6M 10/30/2025 APPOINTMENT CBC w/ auto diff 01/11/2025 APPOINTMENT CBC,CMP,6M OV BM P X1 01/11/2025 APPOINTMENT CBC,CMP,6M OV BM P X1 01/01/2025 APPOINTMENT CBC,CMP,6M OV BM P X1 01/01/2025 APPOINTMENT CBC,CMP,6M OV BM P X1 12/04/2024 APPOINTMENT Lab 12/04/2024 APPOINTMENT CBC,CMP, 6M EXOV 12/04/2024 APPOINTMENT CBC,CMP, 6M EXOV 12/04/2024 LAB_ORDER CBC w/ auto diff 12/04/2024 LAB_ORDER CMP 10/30/2025 LAB_ORDER CBC w/ auto diff Reason for Visit CBC,CMP,6M OV BMP X1 Encounters Date Name 10/30/2025 Castleman's disease (disorder) 10/30/2025 Castleman's disease (disorder) 10/30/2025 CBCHELEN MD OVERDUE 6 M 10/30/2025 CBCHELEN MD OVERDUE 6 M Diagnostic Results Date Type Test Units Lower Limit Upper Limit Result Flag Comments Status Ordered By Specimen Source Lab Address 01/11 CBC w/ auto diff Abhilash # (ANC) 10^3/u l 1.[address] [facility], [address] [place] [id number] 0 01/11 CBC w/ auto diff MCV FL 80.[address] [facility], [address] [place] [id number] 0 01/11 CBC w/ auto diff IG % % 0.0 1.0 0.50 FINAL [facility], [address] [place] [id number] 0 01/11 CBC w/ auto diff MO # 10^3/u l 0.0 1.2 0.6 FINAL [facility], [address] [place] [id number] 0 01/11 CBC w/ auto diff MO % % 0.[address] [facility], [address] [place] [id number] 0 01/11 CBC w/ auto diff IG # 10^3/u l 0.0 0.1 0.03 FINAL [facility], [address] [place] [address] Ave [address] [place] [id number] 0 01/11 CBC w/ auto diff EO # 10^3/u l 0.[address] [facility], [address] [place] [id number] 0 01/11 CBC w/ auto diff EO % % 0.[address] [facility], [address] [place] [id number] 0 01/11 CBC w/ auto diff RBC 10^6/u l 3.[address] [facility], [address] [place] [id number] 0 01/11 CBC w/ auto diff MPV fL 6.5 12.4 10.9 [facility]AL [facility], [address] [place] [id number] 0 01/11 CBC w/ auto diff NRBC, % /100WB C 0.0 0.2 0.0 [facility]AL [facility], [address] [place] [id number] 0 01/11 CBC w/ auto diff WBC 10^3/u l 4.0 11.0 5.8 [facility]AL [facility], [address] [place] [id number] 0 01/11 CBC w/ auto diff PLT 10^3/u l 140.0 440.0 306 FINAL [facility], [address] [place] [id number] 0 01/11 CBC w/ auto diff BA % % 0.0 3.0 0.5 [facility]AL [facility], [address] [place] [id number] 0 01/11 CBC w/ auto diff BA # 10^3/u l 0.0 0.3 0.0 FINAL [facility], [address] [place] [id number] 0 01/11 CBC w/ auto diff HGB g/dl 11.5 16.0 13.9 FINAL [facility], [address] [place] [id number] 0 01/11 CBC w/ auto diff RDW % 11.5 15.0 12.7 [facility], [address] [place] [id number] 0 01/11 CBC w/ auto diff LY % % 16.[address] [facility], [address] [place] [id number] 0 01/11 CBC w/ auto diff MCH pg 26.[address] [facility], [address] [place] [id number] 0 01/11 CBC w/ auto diff LY # 10^3/u l 0.[address] [facility], [address] [place] [id number] 0 01/11 CBC w/ auto diff MCHC g/dL 32.[address] [facility], [address] [place] [id number] 0 01/11 CBC w/ auto diff NRBC, absol nisqually, x 10^3/ uL 10^3/u L 0.[address] [facility], [address] [place] [id number] 0 01/11 CBC w/ auto diff HCT % 35.[address] [facility], [address] [place] [id number] 0 01/11 CBC w/ auto diff Abhilash % % 37.[address] [facility], [address] [place] [id number] 0 01/11 CMP Alkal ine phosp hatas e U/L 45.[address] [facility], [address] [place] [address] Ave [address] [place] [id number] 0 01/11 CMP Calci um mg/dL 8.[address] [facility], [address] [place] [id number] 0 01/11 CMP ALT/S GPT U/L 0.0 31.0 13 [facility] ([facility] [place], [address] [place] [id number] 0 01/11 CMP GFR estim ate mL/min /1.73m ^2 >60 [facility], [address] [place] [id number] 0 01/11 CMP CO2 mmol/L 22.0 31.0 28 [facility] ([facility], [address] [place] [id number] 0 01/11 CMP Gluco se mg/dL 70.[address] [facility], [address] [place] [id number] 0 01/11 CMP Globu niels g/dL 1.[address] [facility] ([facility], [address] [place] [id number] 0 01/11 CMP Chlor cece mmol/L 96.[address] [facility], [address] [place] [id number] 0 01/11 CMP Total prote in g/dL 6.[address] [facility] ([facility], [address] [place] [id number] 0 01/11 CMP BUN mg/dl 6.0 20.0 11 FINAL [facility] ([facility], [address] [place] [id number] 0 01/11 CMP Creat inine mg/dL 0.[address] [facility], [address] [place] [id number] 0 01/11 CMP AST/S GOT U/L 0.0 41.0 19 FINAL [facility], [address] [place] [id number] 0 01/11 CMP Album in g/dL 3.5 5.0 4.3 FINAL [facility], [address] [place] [id number] 0 01/11 CMP Bilir ubin, total mg/dL 0.0 1.0 0.2 FINAL [facility], [address] [place] [id number] 0 01/11 CMP Sodiu m mmol/L 135.0 145.0 141 FINAL [facility], [address] [place], [place] [address]e [address] [place] [id number] 0 01/11 CMP Potas sium mmol/L 3.5 5.0 4.2 [facility], [address] [place], [place] [address]e [address] [place] [id number] 0 Medications Date Name Route Dose Frequency [...] tablet every day at bedtime active 12/22 Sertral ine Oral orally 100.0 mg daily inactive 12/22 Etonoge strel-E thinyl Estradi ol [...] Tab orally 30.0 mg daily inactive 12/22 Levothy roxine Oral orally 1.0 tablet daily quantity sufficient for 30 days; 3 refills inactive 01/11 Amlodip ine Oral orally 10.0 mg daily active Problems Diagnosis Status Date of Diagnosis Resolution Date History of thyroid cancer Active Breast cancer, female Active 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 Procedures Date Category Name Instructions Status 12/01/2024 Physician Order RTC OV labs Ordered 07/13/2025 Physician Order RTC OV labs Ordered Social History Date Name Value 01/11/2025 Smoking Status Former smoker 11/10/2022 Sex Female Visits Date Type Value 10/30/2025 CBC w/ auto diff 10/30/2025 CBC, HELEN COFFMAN OVERDUE 6M 10/30/2025 CBC, HELEN COFFMAN OVERDUE 6M Vital Signs Date Type Value 01/11/2025 Body Temperature 97.00 01/11/2025 Heart Beat 95.00 01/11/2025 Respiratory Rate 16.00 01/11/2025 Oxygen Saturation 98.00 01/11/2025 BSA 2.01 01/11/2025 Pain Scale 3.00 01/11/2025 Weight 196.00 01/11/2025 Height 67.20 01/11/2025 BMI 30.52 01/11/2025 Intravascular Systolic 140 01/11/2025 Intravascular Diastolic 88
--- OUTSIDE RECORDS SUMMARY | 2025-08-24 03:34 | XMS_ITS | Encounter Summary ---
Author Organization [facility] Address [address] [place] [address] Care Team Providers Care Solid Waste Engineer Name Role Phone None Per Patient, None Per Pt Primary Care Provi shanelle Unavailable Encounter Details Date Type Department Care Team (Late st Contact Info) Description 09/11/2015 Historical Radiology Encounter [facility] Administrative Office [address] [facility], [address] [place] [address] Antonia Guillermo MD Social History Tobacco Use [...] AM PDT Patient: Astrid Magallanes ID: [id number] Note: All result statuses are Final unless otherwise noted. Tests: (1) (Ultrasound) R4 SEE REPORT *1 Obstetric Ultrasound Report Early Limited Survey Referral from: . Dr. Antonia Guillermo [facility], [facility]. [facility] [address] [place] [address] [place] [address] PATIENT INFORMATION: Name: Astrid Magallanes MR#: [id number] Age: 30 y/o Exam Date: 09/11/2015 : 1985 Visit #: 1 LMP: 07/07/2015 Location: [facility] # Fetuses: 1 INDICATION: Early OB - Confirm dates & viability APPROACH: Transabdominal and transvaginal. DATING: Assigned GA GA by LMP GA by Ultrasound (US) JUNAID 9 3/7 wks 6 5/7 wks 6 5/7 wks 05/01/16 ECTOPIC : Location: EGA: Uterine Changes: Viability: GESTATION: Sac [place] Heart Measurement Yolk Sac Length Rate ------- [...] with a subchorionic hemorrhage. Jackie Rosas MD Flooring Installer: Chano Henderson RDMS DateOfExam 09/11/2015 (R) JUNAID [...] Specimen Source: Source: R4 Filler Order Number: [id number] Lab site: Seafood Clerk ID *[id number] The following non-numeric lab results were dispersed to the flowsheet even though numeric results were expected: JUNAID, 05/01/2016 GAbyUS, 6 5/7 wks Procedure Note Antonia Guillermo MD - 03/17/2018 Patient: Astrid Magallanes ID: [id number] Note: All result statuses are Final unless otherwise noted. Tests: (1) (Ultrasound) R4 SEE REPORT*1 Obstetric Ultrasound Report Early Limited Survey Referral from:. Dr. Antonia Guillermo [facility] [address] [place] [address] [address] [facility] [id number] [place] [address] PATIENT INFORMATION: Name: Astird Magallanes MR#: [id number] Age: 30 y/o Exam Date: 09/11/2015 : 1985 Visit #: 1 LMP: 07/07/2015 Location: [facility] # Fetuses: 1 INDICATION: Early OB - Confirm dates & viability APPROACH: Transabdominal and transvaginal. DATING: Assigned GA GA by LMP GA by Ultrasound (US) JUNAID 9 12/07 wks 6 02/06 wks 6 02/06 wks 05/01/16 ECTOPIC : Location: EGA: Uterine Changes: Viability: GESTATION: Sac [place] Heart Measurement Yolk Sac Length Rate ------- [...] with a subchorionic hemorrhage. Jackie Rosas MD Flooring Installer: Chano Henderson RDMS DateOfExam 09/11/2015 (R) JUNAID 05/01/2016 (R) Bean 6 02/06 wks (R) Note: An exclamation dylan (!) indicates a result that was not dispersedinto the flowsheet. Document Creation Date: 09/11/2015 1:39 PM (1) Order result status: Final Collection or observation date-time: 09/11/2015 00:00:00 Requested date-time: Receipt date-time: Reported date-time: Referring Physician: Ordering Physician: Antonia KOEHLER) Specimen Source: Source: R4 Filler Order Number: [id number] Lab site: Seafood Clerk ID *[id number] The following non-numeric lab results were dispersed to the flowsheet even though numeric results were expected: JUNAID, 05/01/2016 Bean, 6 5/7 wks us Antonia Guillermo MD IMG US ORDERABLES Final Resul t documented in this encounter Visit Diagnoses Not on filedocumented in this encounter Care Teams Solid Waste Engineer Relationship Specialty Start Date End Date None Per Patient, None Per Pt PCP - General 02/27/23 documented as of this encounter
--- OUTSIDE RECORDS SUMMARY | 2025-08-24 03:34 | XMS_ITS | Clinical Summary ---
Author Organization [facility] Address [address] [place] [address] Phone Care Team Providers Care Human Relations Teacher Name Role Phone Aleja Price DNP, ADMINISTRATIVE TECH-C Unavailable Casandra Murphy MD, [facility] Primary Care Provider [phone] Allergies Active Allergy Reactions Criticality Noted Date [...] decrease in acuity in both eyes - [place] with regular appearing Sagar disc images OU [...] MRI orbit; has been seen by Dr. Rangel - bilateral lacrimal gland enlargement without inflammation [...] patient's age to complete this topic Insurance [employer] Care Teams Human Relations Teacher Relationship Specialty Start Date End Date Sia Guajardo MD [address] [facility] [address] [place] [address] PCP - General Internal Medicine 12/20/23 Aleja Price, RAMESH, ADMINISTRATIVE TECH-C [address] [facility] [place] [phone] Nurse Practitioner Family 03/29/23
--- OUTSIDE RECORDS SUMMARY | 2025-08-24 03:34 | XMS_ITS | Encounter Summary ---
Author Organization [facility] Address [address] [place] [address] Phone Care Team Providers Care Tool Carrier Name Role Phone Deborah Rg DO Primary Care Provider [phone] Aleja Price DNP, ANDROID ARCHITECT-C Unavailable Casandra Murphy MD, Sia Donald Primary Care Provider [phone] Encounter Details Date Type Department Care Team (Late st Contact Info) Description 04/27/2023 Telephone Neurology [facility] [address] [facility] , [place] [address] Ehsan Hayward, RN [address] [place] [address] Social History Tobacco Use Types Packs/Day Years [...] documented as of this encounter Care Teams Tool Carrier Relationship Specialty Start Date End Date Deborah Rg DO PCP - General Family Medicine 12/15/22 12/19/23 Sia Guajardo MD [address] [address] PCP - General Internal Medicine 12/20/23 Aleja Price DNP, ANDROID ARCHITECT-C [address] [place] [phone] Nurse Practitioner Family 03/29/23 documented as of this encounter
--- OUTSIDE RECORDS SUMMARY | 2025-08-24 03:34 | XMS_ITS | Encounter Summary ---
Author Organization [facility] Address [address] [place] [address] Care Team Providers Care White Sourer Name Role Phone None Per Patient, None Per Pt Primary Care Provi shanelle Unavailable Encounter Details Date Type Department Care Team (Late st Contact Info) Description 10/16/2015 Historical Radiology Encounter [facility] Administrative Office [address] [facility], [address] [place] [address] Antonia Guillermo MD Social History Tobacco Use [...] AM PDT Patient: Astrid Magallanes ID: [id number] Note: All result statuses are Final unless otherwise noted. Tests: (1) (Ultrasound) R4 SEE REPORT *1 Obstetric Ultrasound Report Early Limited Survey Referral from: . Dr. Antonia Guillermo [facility], [facility]. [facility] [address] [place] [address] [place] [address] PATIENT INFORMATION: Name: Astrid Magallanes MR#: [id number] Age: 30 y/o Exam Date: 10/16/2015 : 1985 Visit #: 2 LMP: 07/07/2015 Location: [facility] # Fetuses: 1 INDICATION: Sequential Screening - Nuchal Translucency APPROACH: Transabdominal. DATING: Assigned GA GA by LMP GA by Ultrasound (US) JUNAID 14 3/7 wks 12 4/7 wks 11 5/7 wks 05/01/16 ECTOPIC : Location: EGA: Uterine Changes: Viability: GESTATION: Sac [place]ump Heart Measurement Yolk Sac Length Rate ------- [...] draw at 16-18 weeks. Mariella Mejia M.D. Film Tests Checker: Klarissa Cristobal RDMS DateOfExam 10/16/2015 (R) JUNAID [...] Specimen Source: Source: R4 Filler Order Number: [id number] Lab site: Petroleum Inspector ID *[id number] The following non-numeric lab results were dispersed to the flowsheet even though numeric results were expected: JUNAID, 05/01/2016 Bean, 12 01/07 wks Procedure Note Antonia Guillermo MD - 03/17/2018 Patient: Astrid Magallanes ID: [id number] Note: All result statuses are Final unless otherwise noted. Tests: (1) (Ultrasound) R4 SEE REPORT*1 Obstetric Ultrasound Report Early Limited Survey Referral from:. Dr. Antonia Guillermo [facility] [address] [place] [address] [address] [facility] [id number] [place] [address] PATIENT INFORMATION: Name: Astrid Magallanes MR#: [id number] Age: 30 y/o Exam Date: 10/16/2015 : 1985 Visit #: 2 LMP: 07/07/2015 Location: [facility] # Fetuses: 1 INDICATION: Sequential Screening - Nuchal Translucency APPROACH: Transabdominal. DATING: Assigned GA GA by LMP GA by Ultrasound (US) JUNAID 14 3/7 wks 12 47 wks 11 5/7 wks 05/01/16 ECTOPIC : Location: EGA: Uterine Changes: Viability: GESTATION: Sac [place] Heart Measurement Yolk Sac Length Rate ------- [...] draw at 16-18 weeks. Mariella Mejia M.D. Film Tests Checker: Klarissa Cristobal RDMS DateOfExam 10/16/2015 (R) JUNAID 05/01/2016 (R) GAbyUS 12 01/07 wks (R) Note: An exclamation dylan (!) indicates a result that was not dispersedinto the flowsheet. Document Creation Date: 10/16/2015 11:09 AM (1) Order result status: Final Collection or observation date-time: 10/16/2015 00:00:00 Requested date-time: Receipt date-time: Reported date-time: Referring Physician: Ordering Physician: Antonia KOEHLER) Specimen Source: Source: R4 Filler Order Number: [id number] Lab site: Petroleum Inspector ID *[id number] The following non-numeric lab results were dispersed to the flowsheet even though numeric results were expected: JUNAID, 05/01/2016 GAbyUS, 12 4/ wks us Antonia Guillermo MD IMG US ORDERABLES Final Resul t documented in this encounter Visit Diagnoses Not on filedocumented in this encounter Care Teams White Sourer Relationship Specialty Start Date End Date None Per Patient, None Per Pt PCP - General 02/27/23 documented as of this encounter
--- OUTSIDE RECORDS SUMMARY | 2025-08-24 03:34 | XMS_ITS | Encounter Summary ---
Author Organization [facility] Address [address] [place] [address] Phone Care Team Providers Care Doctor Of Nursing Practice Name Role Phone Pcp, Unknown Primary Care Provider Unavailabl e Encounter Details Date Type Department Care Team (Late st Contact Info) Description 07/17/2025 Procedure Pass [facility], Ct Scan - [facility] [address] [place] [address] Social History Tobacco Use Types Packs/Day Years [...] 7:24 PM MARISSAT Nesha Saavedra RN * [place] Suicide Severity Rating Scale (Screener/Recent Self-Report) Question [...] on filedocumented in this encounter Care Teams Doctor Of Nursing Practice Relationship Specialty Start Date End Date Pcp, Unknown PCP - General 07/17/25 documented as of this encounter Additional Source Comments The information contained in this document represents components of the legal health record. It is not the complete legal health record.[facility]
[2025-08-24 04:08] LABS: Hematocrit 43.2 % (37.0-47.0); Hemoglobin 14.6 g/dl (12.0-16.0); Imm Gran Abs Auto 0.04 X10*3/uL (0.00-0.03); Imm Gran Pct Auto 0.4 % (0.0-0.4); Lymphocytes Absolute Auto 2.1 X10*3/uL (1.2-4.9); MANUAL DIFF FLAG NO; Mean Corpuscular HGB Conc 33.8 g/dl (31.0-35.0); Mean Corpuscular Hemoglobin 29.9 pg (27.0-33.0); Mean Corpuscular Volume 88.3 fL (80.0-98.0); NRBC Abs Auto 0.000 X10*3/uL (0.0-0.012); NRBC Pct Auto 0.0 /100WBC (0.0-0.2); Platelet Count 343 X10*3/uL (160-400); Red Blood Count 4.89 X10*6/uL (4.20-5.50); White Blood Count 9.0 X10*3/uL (4.8-10.8)
[2025-08-24 04:23] LABS: Appearance Urine Cloudy; Glucose Urine UA Negative (Negative); PH 5.0 (5.0-9.0); Specific Gravity - Urine >= 1.030 (1.005-1.025)
[2025-08-24 04:31] LABS: Acetaminophen LAB < 3 mcg/mL (<30); Salicylate < 5.0 mg/dL (15-30)
[2025-08-24 04:34] LABS: Alanine Aminotransferase 18 U/L (0-31); Albumin Level 4.5 g/dL (3.5-5.0); Alkaline Phosphatase 98 U/L (39-117); Anion Gap 14 (12-20); Aspartate Amino Transferase 27 U/L (5-31); Blood Urea Nitrogen 10 mg/dL (9-16); Calcium 9.8 mg/dL (8.4-10.2); Carbon Dioxide 29 mmol/L (22-29); Chloride 103 mmol/L (96-108); Creatinine Clr Calc Pharmacy 89.8; Estimated Glomerular Filt Rate > 60; Magnesium 2.1 mg/dL (1.6-2.6); Potassium 3.8 mmol/L (3.3-5.1); Sodium 142 mmol/L (135-145); Total Protein 7.5 g/dL (6.5-8.0)
[2025-08-24 04:37] VITALS: BP 136/92; PULSE 86; RESP 18; O2SAT 98
[2025-08-24 04:48] LABS: Cannabinoid Screen Urine Not Detected (Not Detect)
[2025-08-24 05:20] LABS: Free T4 (Free Thyroxine) 0.75 ng/dL (0.71-1.85)
[2025-08-24 06:04] VITALS: BP 136/92; PULSE 86; RESP 18; TEMP 36.6; O2SAT 98
== END 2025-08-24 06:05 | disposition home or self-care (01) ==
PROVIDERS: Emergency Provider Emergency Medicine
DX: E03.8 Other specified hypothyroidism (principal); F41.9 Anxiety disorder, unspecified; Z76.0 Encounter for issue of repeat prescription; Z79.899 Other long term (current) drug therapy
CPT/HCPCS: 36415; 80048; 80076; 80143; 80179; 80307; 81003; 83735; 84439; 84443; 84702; 85025; 99284